=== PATIENT | male | born 1955 | race Caucasian/White ===

== ENCOUNTER 2019-01-01 10:26 | Inpatient (IN) | payer MEDICARE, BC ==
[2019-01-01] MEDS ORDERED: Haloperidol Lactate 5 mg/mL 1mL Vial IM STA (10:43)
[2019-01-01] MEDS ORDERED: Haloperidol Lactate 5 mg/mL 1mL Vial ONE (10:52)
[2019-01-01 10:59] LABS: % EOSINOPHILS 0.8 % (0.0-5.0); % LYMPHOCYTES 12.4 % (20.0-50.0); % NEUTROPHILS 79.8 % (40.0-80.0); EOSINOPHILE ABSOLUTE 0.1 Th/cmm (0.1-0.4); HEMATOCRIT 42.4 % (41.0-60); HEMOGLOBIN 14.2 gm/dL (12-16); LYMPHOCYTE ABSOLUTE 1.7 Th/cmm (1.5-3.0); MEAN CELL VOLUME 93.4 fl (80-99); MEAN CORPUSCULAR HEMOGLOBIN 31.3 pg (27.0-31.0); MEAN CORPUSCULAR HGB CONC 33.5 pg (28.0-36.0); NEUTROPHILE ABSOLUTE 11.3 Th/cmm (1.8-8.0); PLATELET COUNT 371 Th/cmm (150-400); RED BLOOD COUNT 4.55 Mil/cmm (3.80-5.80); RED CELL DISTRIBUTION WIDTH 14.1 % (11.5-20.0); WHITE BLOOD COUNT 14.1 Th/cmm (4.8-10.8)
--- NOTE | 2019-01-01 11:10 | ED Physician Chart ---
ED Chief Complaint/HPI - Patient Information Date Seen:: 01/01/19 Time Seen:: 10:40 Chief Complaint:: Agitation History of Present Illness:: onset x 3 hours of reported agitation, DTOs, and aggressive/hostile behavior; no report of trauma, H/As, S/T, neck pain, SIs, C/P, cough, SOB, Abd. Pain, A/N/ V/D/C, fever, chills, bleeding, or urinary s/s Allergies:: Allergies Allergy/AdvReac Type Severity Reaction Status Date / Time No Known Allergies Allergy Verified 01/01/19 10:42 Vitals:: Vital Signs - 8 hr 01/01/19 10:43 Temp 99.1 F HR 102 RR 22 BP 175/88 O2 Sat % 95 Historian:: Patient Review:: Nurse's Note Reviewed, Old Chart Reviewed ED Review of Systems - Review of Systems General/Constitutional: No fever, No chills, No weight loss, No weakness, No diaphoresis, No edema, No loss of appetite Skin: No skin lesions, No rash, No bruising Head: No headache, No light-headedness Eyes: No loss of vision, No pain, No diplopia ENT: No earache, No nasal drainage, No sore throat, No tinnitus Neck: No neck pain, No swelling, No thyromegaly, No stiffness, No mass noted Cardio Vascular: No chest pain, No palpitations, No PND, No orthopnea, No edema Pulmonary: No SOB, No cough, No sputum, No wheezing GI: No nausea, No vomiting, No diarrhea, No pain, No melena, No hematochezia, No constipation, No hematemesis G/U: No dysuria, No frequency, No hematuria, No nacturia Musculoskeletal: No bone or joint pain, No back pain, No muscle pain Endocrine: No polyuria, No polydipsia Psychiatric: Prior psych history, No depression, Anxiety, No suicidal ideation, No homicidal ideation, No auditory hallucination, No visual hallucination Hematopoietic: No bruising, No lymphadenopathy Allergic/Immuno: No urticaria, No angioedema Neurological: No syncope, No focal symptoms, No weakness, No paresthesia, No headache, No seizure, No dizziness, No confusion, No vertigo ED Past Medical History - Past Medical History Obtainable: Yes Past Medical History: HTN Family History: HTN Social History: Smoker, Alcohol, No Drug Use, Single Surgical History: None Psychiatricy History: Bipolar Medication: Reviewed ED Physical Exam - Physical Examination General/Constitutional: Awake, Well-developed, well-nourished, Alert, No distress, GCS 15, Non-toxic appearing, Ambulatory Head: Atraumatic Eyes: Lids, conjuctiva normal, PERRL, EOMI Skin: Nl inspection, No rash, No skin lesions, No ecchymosis, Well hydrated, No lymphadenopathy ENMT: External ears, nose nl, TM canals nl, Nasal exam nl, Lips, teeth, gums nl , Oropharynx nl, Tonsils nl Neck: Nontender, Full ROM w/o pain, No JVD, No nuchal rigidity, No bruit, No mass, No stridor Respiratory: Nl effort/Exclusion, Clear to Auscultation, No Wheeze/Rhonchi/Rales Cardio Vascular: RRR, No murmur, gallop, rubs, NL S1 S2, Carotid/Femoral/Distal pulses equal bilaterally GI: No tenderness/rebounding/guarding, No organomegaly, No hernia, Normal BS's, Nondistended, No mass/bruits, No McBurney tenderness : No CVA tenderness Extremities: No tenderness or effusion, Full ROM, normal strength in all extremities, No edema, Normal digits & nails Neuro/Psych: Alert/oriented, DTR's symmetric, Normal sensory exam, Normal motor strength, Judgement/insight normal, Mood normal, Normal gait, No focal deficits Other Neuro/Psych comments:: + Psychomotor Agitation; no SIs; Mood/Affect: Labile Misc: Normal back, No paraspinal tenderness ED Labs/Radiology/EKG Results - Lab Results Results: Laboratory Tests 01/01/19 10:50 WBC 14.1 H RBC 4.55 Hgb 14.2 Hct 42.4 MCV 93.4 MCH 31.3 H MCHC Differential 33.5 RDW 14.1 Plt Count 371 MPV 7.9 Neutrophils % 79.8 Lymphocytes % 12.4 L Monocytes % 7.0 Eosinophils % 0.8 Basophils % 0.0 Comments:: Reviewed - EKG Interpretations EKG Time:: 11:00 Rate & Rhythm: 92; NSR Comments:: non-specific st-t changes ED Septic Shock - . Is Septic Shock (SBP<90, OR Lactate>4 mmol\L) present?: No - <6hrs of presentation: Vital Signs: Vital Signs - 8 hr 01/01/19 10:43 Temp 99.1 F HR 102 RR 22 BP 175/88 O2 Sat % 95 ED Reassessment (Disposition) - Reassessment Reassessment Condition:: Improved - Diagnosis Diagnosis:: Agitation; Anxiety; Medical Clearance; DTOs; HTN; Bipolar Disorder - Aftercare/Follow up Instructions Aftercare/Follow-Up Instructions:: Counseled pt regarding lab results/diagnosis & need follow up, Counseled pt & family regarding lab results/diagnosis & need follow up - Patient Disposition Discharge/Transfer:: Acute Care w/in this hosp Admitted to:: [facility] Condition at Disposition:: Stable, Improved
[2019-01-01 11:15] LABS: ACETAMINOPHEN < 10.0 ug/mL (10.0-30.0); ALB/GLOB RATIO 1.3 (1.0-1.8); ALBUMIN 4.3 gm/dL (4.2-5.5); ALKALINE PHOSPHATASE 50 U/L (34-104); BILIRUBIN,TOTAL 0.4 mg/dL (0.3-1.0); BUN - UREA NITROGEN 20 mg/dL (7-25); CALCIUM SERUM 9.6 mg/dL (8.6-10.3); CARBON DIOXIDE 25.5 mEq/L (21.0-31.0); CHLORIDE 95 mEq/L (98-107); CHOLESTEROL 156 mg/dL (<200); CREATININE - SERUM 0.7 mg/dL (0.7-1.3); GFR AFRICAN-AMERICAN > 60.0 ml/min (>90); GFR NON AFRICAN-AMERICAN > 60.0 ml/min; GLUCOSE 88 mg/dL (70-105); HDL -HIGH DENSITY LIPOPROTEIN 70 mg/dL (23-92); POTASSIUM SERUM 4.5 mEq/L (3.5-5.1); SGOT 48 U/L (13-39); SGPT/ALT 37 U/L (7-52); SODIUM SERUM 130 mEq/L (136-145); TOTAL PROTEIN,SERUM 7.7 gm/dL (6.0-8.3); TRIGLYCERIDES 64 mg/dL (<150)
[2019-01-01 11:32] LABS: URINE SOURCE CLEAN C
[2019-01-01 11:34] LABS: URINE BILIRUBIN NEGATIVE (NEGATIVE); URINE BLOOD NEGATIVE (NEGATIVE); URINE GLUCOSE (UA) NEGATIVE (NEGATIVE); URINE KETONE NEGATIVE (NEGATIVE); URINE LEUKOCYTE ESTERASE NEGATIVE (NEGATIVE); URINE NITRATE NEGATIVE (NEGATIVE); URINE PROTEIN NEGATIVE (NEGATIVE); URINE UROBILINOGEN 0.2 E.U./dL (0.2 - 1.0)
[2019-01-01 11:40] LABS: URINE CLARITY CLEAR (CLEAR); URINE COLOR YELLOW
[2019-01-01 11:41] LABS: URINE BACTERIA FEW /hpf (NONE SEEN); URINE EPITHELIAL CELLS NONE SEEN /lpf (FEW); URINE MICROSCOPIC INDICATED? YES; URINE RBC 0-2 /hpf (0-5); URINE WBC 0-2 /hpf (0-5)
[2019-01-01 11:44] LABS: AMPHETAMINE URINE NEGATIVE (NEGATIVE); BARBITURATES URINE NEGATIVE (NEGATIVE); BENZODIAZEPINES QUAL URINE NEGATIVE (NEGATIVE); CANNABINOID THC NEGATIVE (NEGATIVE); COCAINE METABOLITE QUAL URINE NEGATIVE (NEGATIVE); METHADONE URINE NEGATIVE (NEGATIVE); METHAMPHETAMINES QUAL URINE NEGATIVE (NEGATIVE); OPIATES (MORPHINE) QUAL. URINE NEGATIVE (NEGATIVE); PHENCYCLIDINE (PCP) URINE NEGATIVE (NEGATIVE); TRICYCLICS (TCA) QUAL. URINE NEGATIVE (NEGATIVE)
[2019-01-01 16:01] VITALS: BP 147/84
[2019-01-01] MEDS ORDERED: Maalox 30 mL Cup PO PRN (19:54)
[2019-01-01] MEDS ORDERED: Magnesium Hydroxide (MOM) 30 mL UDC PO PRN (19:54)
--- NOTE | 2019-01-02 03:58 | Psychiatric Evaluation ---
DATE OF SERVICE: 01/01/2019 PSYCHIATRIC EVALUATION AND MENTAL EXAMINATION IDENTIFYING DATA: The patient is a 63-year-old male, currently homeless. Information obtained by directly interviewing the patient as well as reviewing the admission papers and they are reliable. JUSTIFICATION FOR HOSPITALIZATION: The patient is admitted on 5150 as a danger to others and being gravely disabled. CHIEF COMPLAINT: "I don't know." HISTORY OF PRESENT ILLNESS: This is the first psychiatric hospitalization to [facility] for this patient who is reported to have been creating a disturbance at a business and police were called on multiple occasions and the patient has finally been placed on 5150 and need to be transferred over here for stabilization. At the time of the evaluation, the patient has been very agitated and the patient has been given a dose of the Haldol, Ativan, and Benadryl and the patient at this time is sedated and is not able to provide much of information. PAST PSYCHIATRIC HISTORY: Details are not known. MEDICAL HISTORY AND PHYSICAL EXAMINATION: Requested to be done by Dr. Bell. SUBSTANCE ABUSE HISTORY: Details are not known. LEGAL PROBLEMS: None noted at this time. SOCIAL HISTORY: The patient is currently homeless. MENTAL STATUS EXAMINATION: The patient is a 63-year-old, very disheveled, looking older than his stated age, superficially cooperative. The patient is stating that he is too sedated and cannot give any information. The patient is reported to have been out of control, screaming and yelling and has to be given a dose of medication a minute he came into the Emergency Room. The patient at this time is sedated and I am not able to provide much of information with regards to mental status. The patient's blood work has been reviewed and then WBC is noted to be 14.1 and then sodium is noted to be 130. The rest of the labs are noted to be within normal limits. DIAGNOSTIC IMPRESSION: AXIS I: Psychotic disorder, not otherwise specified. AXIS II: None. AXIS III: As per Dr. Bell. IMMEDIATE TREATMENT PLAN: The patient is going to be observed on an inpatient unit, provided with supportive psychotherapy. The patient is going to be maintained on p.r.n. doses of medications. ____ the patient is able to provide much of the information, the patient is going to be started on the medications. ESTIMATED LENGTH OF STAY: 3-5 days. DISCHARGE CRITERIA: When the patient is no longer a threat to self or others and be able to cope up with the stress. [facility]# [id number]
[2019-01-02 07:05] LABS: A1C 5.7 % (4.8-5.6)
[2019-01-02] MEDS: Multivitamin Tab PO SCH (09:37)
--- NOTE | 2019-01-02 18:52 | History & Physical ---
ADMIT DATE: 01/02/2019 DICTATED FOR: Dr. Bell. CHIEF COMPLAINT: Agitation. HISTORY OF PRESENT ILLNESS: A 63-year-old male, who is admitted to the Geropsych Unit due to agitation. PAST MEDICAL HISTORY: Hypertension. FAMILY HISTORY: Noncontributory. SOCIAL HISTORY: The patient is a current smoker. No illicit drug usage. PAST SURGICAL HISTORY: None. PSYCHIATRIC HISTORY: Bipolar. MEDICATIONS: See medication list. REVIEW OF SYSTEMS: GENERAL: Denies any fever or chills. CARDIOVASCULAR: Denies chest pain. RESPIRATORY: Denies shortness of breath. GASTROINTESTINAL: Denies nausea, vomiting, abdominal pain. GENITOURINARY: Denies increased frequency or dysuria. NEUROLOGIC: No headaches, seizures, or syncope. All systems reviewed and negative. PHYSICAL EXAMINATION: GENERAL: The patient is well developed, well nourished, no apparent distress. VITAL SIGNS: Temperature 96.9, heart rate 89, blood pressure 175/81, respirations 20, O2 of 96%. HEENT: Head normocephalic, atraumatic. NECK: Supple. No mass. LUNGS: Clear bilaterally. HEART: Regular rhythm. ABDOMEN: Soft, nontender. GENITOURINARY, RECTAL, GENITALIA: The patient refused. LABORATORY DATA: WBC 14.1, H and H of 14.2 and 42.4, platelets of 371. Sodium 130, potassium 4.5, chloride 95, BUN 20, creatinine 0.7. ASSESSMENT: Bipolar, agitation, hypertension, leukocytosis, urinary tract infection. PLAN: We will give the patient Levaquin 500 mg p.o. daily. Continue patient's home medications. Fall precautions will be initiated. We will continue to monitor this patient. JOB# [id number]
[2019-01-03] MEDS: Multivitamin Tab PO SCH (08:51)
--- NOTE | 2019-01-03 09:05 | Consultation ---
DATE OF CONSULTATION: 01/02/2019 DATE OF CONSULTATION: 01/02/2019 REFERRING PHYSICIAN: Dr. Yonatan Puente MD TYPE OF CONSULTATION: Psychology. HISTORY OF PRESENT ILLNESS: The patient is a 63-year-old single male. The following is by review of the medical record and by the patient's self-report. According to record review, the patient is currently homeless. The patient is being admitted on a 5150 as a danger to others and being gravely disabled. Upon interview, the patient reports that he does not know why he is being hospitalized. Record review indicates that the patient had been creating a disturbance at a business and police were called on multiple occasions. The patient eventually was placed on a 5150 hold and transferred here for stabilization. The patient presents as guarded and suspicious and easily agitated. The patient did not answer the other clinical interview questions. PAST MEDICAL HISTORY: Please see history and physical by Dr. Bell. PAST PSYCHIATRIC HISTORY: Details are unknown. Records are unavailable. SUBSTANCE ABUSE HISTORY: The patient declined to answer these questions. PSYCHOSOCIAL HISTORY: The patient is currently homeless. The patient did not answer the questions about educational history or occupational history. He did not answer questions about having family members or friends that are involved in his care. The patient was unable to state where he had been previously living. The patient did not answer the question about experiencing any history of physical or sexual abuse. The patient did not answer the question about current legal problems. The patient does not know where he will be discharged. MENTAL STATUS EXAMINATION: The patient appears to be older than his stated age and somewhat disheveled. Eye contact is poor. Speech is slow and delayed. Mood is irritable. Affect is constricted. Record review indicates that the patient had been screaming and yelling in front of a business and making verbal threats. The patient denied these incidents. The patient did not answer questions about experiencing auditory or visual hallucinations or delusions. The patient is not providing much information. Thought process shows to be concrete and confused. The patient's impulse control is inadequate. Concentration appears to be poor. He was unable to sustain focus and attention. The patient did not participate in the clinical assessment. The patient did not participate in the memory evaluation. The patient did not participate in the interpretation of proverbs. Sensorium is alert and oriented to self only. The patient has poor insight into his illness and poor coping skills. Insight is impaired. Judgment is compromised. DIAGNOSTIC IMPRESSION: AXIS I: Provisional diagnosis of psychotic disorder, not otherwise specified. AXIS II: Deferred. AXIS III: Per Dr. Bell. TREATMENT PLAN: The patient has been seen by Dr. Puente for psychiatric evaluation and for the management of the patient's psychotropic medications. We will provide supportive psychotherapy to include motivational enhancement for the patient to become compliant and stay compliant with all aspects of his care and treatment. We will provide reality testing to include reality orientation, differentiation, and integration. We will provide coping strategies for phase of life issues. We will encourage the patient to participate in the milieu treatment. We will encourage the patient to demonstrate emotional and self-regulation. We will encourage the patient to verbally contract for safety, i.e. no self-harm and harm to others. We will encourage the patient to work with case management for possible placement as the patient previously is homeless according to review of the medical record. Thank you, Dr. Puente for this consult and the opportunity to participate in this patient's care. JOB# [id number] RIKA
--- NOTE | 2019-01-03 11:46 | Internal Medicine Prog Note ---
Internal Medicine Subjective - Subjective Service Date: 01/03/19 Patient seen and examined:: with staff Patient is:: awake, agitated Patient Complaints of:: pain with urination Per staff patient has:: no adverse event, no episodes of fall Internal Medicine Objective - Results Result Diagrams: 01/01/19 10:50 01/01/19 10:50 Recent Labs: Laboratory Last Values WBC 14.1 Th/cmm (4.8-10.8) H 01/01/19 10:50 RBC 4.55 Mil/cmm (3.80-5.80) 01/01/19 10:50 Hgb 14.2 gm/dL (12-16) 01/01/19 10:50 Hct 42.4 % (41.0-60) 01/01/19 10:50 MCV 93.4 fl (80-99) 01/01/19 10:50 MCH 31.3 pg (27.0-31.0) H 01/01/19 10:50 MCHC Differential 33.5 pg (28.0-36.0) 01/01/19 10:50 RDW 14.1 % (11.5-20.0) 01/01/19 10:50 Plt Count 371 Th/cmm (150-400) 01/01/19 10:50 MPV 7.9 fl 01/01/19 10:50 Neutrophils % 79.8 % (40.0-80.0) 01/01/19 10:50 Lymphocytes % 12.4 % (20.0-50.0) L 01/01/19 10:50 Monocytes % 7.0 % (2.0-10.0) 01/01/19 10:50 Eosinophils % 0.8 % (0.0-5.0) 01/01/19 10:50 Basophils % 0.0 % (0.0-2.0) 01/01/19 10:50 Sodium 130 mEq/L (136-145) L 01/01/19 10:50 Potassium 4.5 mEq/L (3.5-5.1) 01/01/19 10:50 Chloride 95 mEq/L (98-107) L 01/01/19 10:50 Carbon Dioxide 25.5 mEq/L (21.0-31.0) 01/01/19 10:50 Anion Gap 14.0 (7.0-16.0) 01/01/19 10:50 BUN 20 mg/dL (7-25) 01/01/19 10:50 Creatinine 0.7 mg/dL (0.7-1.3) 01/01/19 10:50 Est GFR ( Amer) > 60.0 ml/min (>90) 01/01/19 10:50 Est GFR (Non-Af Amer) > 60.0 ml/min 01/01/19 10:50 BUN/Creatinine Ratio 28.6 01/01/19 10:50 Glucose 88 mg/dL (70-105) 01/01/19 10:50 Calcium 9.6 mg/dL (8.6-10.3) 01/01/19 10:50 Total Bilirubin 0.4 mg/dL (0.3-1.0) 01/01/19 10:50 AST 48 U/L (13-39) H 01/01/19 10:50 ALT 37 U/L (7-52) 01/01/19 10:50 Alkaline Phosphatase 50 U/L (34-104) 01/01/19 10:50 Troponin I 0.01 ng/mL (0.01-0.05) 01/01/19 10:50 Total Protein 7.7 gm/dL (6.0-8.3) 01/01/19 10:50 Albumin 4.3 gm/dL (4.2-5.5) 01/01/19 10:50 Globulin 3.4 gm/dL 01/01/19 10:50 Albumin/Globulin Ratio 1.3 (1.0-1.8) 01/01/19 10:50 Triglycerides 64 mg/dL (<150) 01/01/19 10:50 Cholesterol 156 mg/dL (<200) 01/01/19 10:50 LDL Cholesterol Direct 76 mg/dL (75-193) 01/01/19 10:50 HDL Cholesterol 70 mg/dL (23-92) 01/01/19 10:50 TSH 3.15 uIU/ml (0.34-5.60) 01/01/19 10:50 Urine Source CLEAN C 01/01/19 11:28 Urine Color YELLOW 01/01/19 11:28 Urine Clarity CLEAR (CLEAR) 01/01/19 11:28 Urine pH 6.0 (4.6 - 8.0) 01/01/19 11:28 Ur Specific Cameron 1.015 (1.005-1.030) 01/01/19 11:28 Urine Protein NEGATIVE mg/dL (NEGATIVE) 01/01/19 11:28 Urine Glucose (UA) NEGATIVE mg/dL (NEGATIVE) 01/01/19 11:28 Urine Ketones NEGATIVE mg/dL (NEGATIVE) 01/01/19 11:28 Urine Blood NEGATIVE (NEGATIVE) 01/01/19 11:28 Urine Nitrate NEGATIVE (NEGATIVE) 01/01/19 11:28 Urine Bilirubin NEGATIVE (NEGATIVE) 01/01/19 11:28 Urine Urobilinogen 0.2 E.U./dL (0.2 - 1.0) 01/01/19 11:28 Ur Leukocyte Esterase NEGATIVE (NEGATIVE) 01/01/19 11:28 Urine RBC 0-2 /hpf (0-5) H 01/01/19 11:28 Urine WBC 0-2 /hpf (0-5) 01/01/19 11:28 Ur Epithelial Cells NONE SEEN /lpf (FEW) 01/01/19 11:28 Urine Bacteria FEW /hpf (NONE SEEN) 01/01/19 11:28 Salicylates < 25.0 mg/L (30.0-100.0) L 01/01/19 10:50 Urine Opiates Screen NEGATIVE (NEGATIVE) 01/01/19 11:28 Urine Methadone Screen NEGATIVE (NEGATIVE) 01/01/19 11:28 Acetaminophen < 10.0 ug/mL (10.0-30.0) L 01/01/19 10:50 Ur Barbiturates Screen NEGATIVE (NEGATIVE) 01/01/19 11:28 Ur Tricyclics Screen NEGATIVE (NEGATIVE) 01/01/19 11:28 Ur Phencyclidine Scrn NEGATIVE (NEGATIVE) 01/01/19 11:28 Amphetamines Screen NEGATIVE (NEGATIVE) 01/01/19 11:28 U Methamphetamines Scrn NEGATIVE (NEGATIVE) 01/01/19 11:28 U Benzodiazepines Scrn NEGATIVE (NEGATIVE) 01/01/19 11:28 U Cocaine Metab Screen NEGATIVE (NEGATIVE) 01/01/19 11:28 U Cannabinoids Screen NEGATIVE (NEGATIVE) 01/01/19 11:28 Ethyl Alcohol < 10 mg/dL (0-10) 01/01/19 10:50 - Physical Exam Vitals and I&O: Vital Signs Temp 97.8 F 01/03/19 06:46 Pulse 88 01/03/19 06:46 Resp 19 01/03/19 06:46 BP 159/75 01/03/19 06:46 Pulse Ox 97 01/03/19 06:46 Intake & Output 01/02/19 01/03/19 01/03/19 18:59 06:59 18:59 Intake Total 1200 480 Balance 1200 480 Intake: Oral 1200 480 Other: # Voids 3 # Bowel Movements 1 1 Active Medications: Current Medications Acetaminophen (Tylenol) 650 mg PO Q4HR PRN PRN Reason: Mild Pain / Temp above 100 Stop: 03/02/19 19:53 Last Admin: 01/02/19 23:27 Dose: 650 mg Al Hydrox/Mg Hydrox/Simethicone (Maalox) 30 ml PO Q4HR PRN PRN Reason: GI DISTRESS Stop: 03/02/19 19:53 Last Admin: 01/02/19 06:02 Dose: 30 ml Divalproex Sodium (Depakote Dr) 250 mg PO BID JENISE; Protocol Stop: 03/04/19 08:59 Last Admin: 01/03/19 09:04 Dose: 250 mg Levofloxacin (Levaquin) 500 mg PO DAILY JENISE Stop: 03/03/19 08:59 Last Admin: 01/03/19 08:51 Dose: 500 mg Lorazepam (Ativan) 0.5 mg PO Q4HR PRN; Protocol PRN Reason: Agitation Stop: 01/31/19 19:53 Last Admin: 01/03/19 09:43 Dose: 0.5 mg Magnesium Hydroxide (Milk Of Magnesia) 30 ml PO HS PRN PRN Reason: Constipation Multivitamins/Vitamin C (Theragran) 1 tab PO DAILY JENISE Stop: 03/03/19 08:59 Last Admin: 01/03/19 08:51 Dose: 1 tab Quetiapine Fumarate (Seroquel) 12.5 mg PO HS JENISE; Protocol Stop: 03/03/19 20:59 Last Admin: 01/02/19 21:18 Dose: 12.5 mg Zolpidem Tartrate (Ambien) 5 mg PO HS PRN PRN Reason: Insomnia Stop: 03/02/19 19:53 Last Admin: 01/02/19 21:18 Dose: 5 mg Physical Exam: 63 y/o male patient was admitted due to Agitation. General: other (Agitated and irritated.) HEENT: NC/AT Neck: Supple Lungs: CTAB Cardiovascular: RRR, Normal S1 Abdomen: soft, non-tender Extremities: clear Neurological: no change Internal Medicine Assmt/Plan - Assessment Assessment: Bipolar disorder. Agitated. Htn. Leukocytosis. UTI. - Plan Plan: Continuation of care. Monitor Vitals and Labs. Continue present meds as directed. Monitor Diet/Nutritional support. Psych management per Psych. Pain Management. Supportive care. Fall precaution, frequent nursing rounds, and as needed restraints to prevent fall. Continue collaborating with consulting specialists, case management and nursing team. Will Monitor patient and continue current treatment plan as ordered. Nutritional Asmnt/Malnutr-PDOC - Dietary Evaluation Malnutrition Findings (Please click <Entered> for more info): see order.
--- NOTE | 2019-01-03 19:17 | Progress Notes ---
DATE: 01/02/2019 SUBJECTIVE: Staff was spoken to. The patient is hyperverbal and has been stating that he needs to go to the [facility] and he also needs to have Valium, Klonopin or Xanax to calm him down for his acute panic attacks. The patient's insight and judgment are noted to be very much impaired. The patient is stating that he was on Triavil at one time and he needs to be on that medication. The patient has been not able to contract for safety. The patient is very paranoid and has been having mood swings, but the patient seems to be more focused on benzodiazepines rather than the any other medications. The patient is going to be started on 12.5 mg of the Seroquel tonight and the patient is going to be closely monitored and a low dose of the Depakote is going to be added to continue the mood swings. The patient at time is not ready to be discharged to a lower level of care because the patient has no place to return to. Please also note that the patient is reporting that he spent some time in [place] because of breaking a window and is stating that his benefits have been taken away and he states that he needs to work on those. The patient is at this time willing to comply with the treatment. ASSESSMENT: The patient is still grossly psychotic and gravely disabled. PLAN: To start the patient on low dose of Depakote and Seroquel and followup. JOB# [id number]
--- NOTE | 2019-01-04 04:13 | Progress Notes ---
DATE: 01/03/2019 SUBJECTIVE: Staff was spoken to. The patient is interviewed. Mood is noted to be irritable. Affect is constricted. Insight and judgment are noted to be still impaired. Impulse control is noted to be limited. Coping skills are noted to be limited. The patient has been having difficult time to cope with the stress. No side effects to the medications are noted. The patient is still very disheveled. The patient is stating that he needs to go to [place], but he has no place to return to. Coping skills are noted to be extremely poor. The patient's WBC is noted to be 14.1 and hence the patient has been started on antibiotic medication. ASSESSMENT: The patient is still psychotic and gravely disabled. PLAN: To continue the patient with the supportive therapy. Encouraged the patient to verbalize the concerns rather than to act out. JOB# [id number]
[2019-01-04] MEDS: Multivitamin Tab PO SCH (08:31)
--- NOTE | 2019-01-05 00:23 | Progress Notes ---
DATE: 01/04/2019 SUBJECTIVE: Staff was spoken to. The patient is interviewed. Mood is noted to be irritable. Affect is constricted. The patient is still dysphoric. Coping skills are noted to be very poor. The patient has paranoia, but denies any command hallucinations. The patient is going on a tangent. The patient is stating that he needs to go to [employer] and he has friends over there. The patient does not have a place to return to at this time, but comes in with so many plans. Insight and judgment at this time are noted to be still impaired. Impulse control is noted to be limited. The patient is not able to care for self. ASSESSMENT: The patient is still paranoid. PLAN: To continue the patient with the supportive therapy. Encouraged the patient to verbalize the concerns rather than to act out. The patient is currently only on 12.5 mg of the Seroquel, which is going to be increased to 25 mg and the patient is going to be followed up. JOB# [id number]
--- NOTE | 2019-01-05 02:28 | Progress Notes ---
DATE: 01/04/2019 SUBJECTIVE: The patient was seen in the dining area. The patient appears to be guarded, irritable, easily gets frustrated, episodes of confusion. Otherwise, the patient appears to be in no acute distress. OBJECTIVE: VITAL SIGNS: Temperature 98.7, heart rate 88, blood pressure 134/91, respirations 20, 94% on room air. HEENT: Head is atraumatic and normocephalic. Eyes: Bilateral conjunctivae are clear. Bilateral pupils are equally round and reactive. NECK: Supple. No JVD. CARDIOVASCULAR: S1 and S2 without murmur. PULMONARY: Clear to auscultation. GASTROINTESTINAL: Soft and nontender without guarding. Positive bowel sounds. MUSCULOSKELETAL: No clubbing. No cyanosis noted. ASSESSMENT: 1. Bipolar disorder. 2. Hypertension. 3. Acute urinary tract infection. 4. Osteoarthritis. PLAN: We will keep the patient to inpatient psychiatric unit. We will followup with a psychiatrist to monitor the patient's condition and behavior. Treatment plans were discussed with the patient's nurse. Treatment plans were discussed with Dr. Bell. JOB# [id number]
[2019-01-05] MEDS: Multivitamin Tab PO SCH (09:14)
--- NOTE | 2019-01-05 11:16 | Progress Notes ---
DATE: 01/04/2019 PSYCHOLOGY PROGRESS NOTE SUBJECTIVE: The patient is seen and is interviewed. Case is discussed with staff. The patient presents as guarded as well as irritable and easily frustrated. Staff reports the patient is taking his p.o. medications. The patient is reporting that he needs to discharge and go back to [place] and that he has a place to go. However, the patient is noted to be homeless. OBJECTIVE: Mood is irritable. Affect is constricted. Thought process shows to be confused. The patient denied any hallucinations or delusions; however, the patient is unrealistic about discharge and placement as well as his current circumstances. The patient is taking his p.o. medications. The patient seems to be withdrawn as well as guarded. ASSESSMENT AND PLAN: The patient's psychosis persists. The patient was evaluated as gravely disabled. Staff reports the patient has agreed to placement. The patient seems to have accepted this; however, this needs positive reinforcement and remotivation. We provided those approaches. We provided coping strategies for phase of life issues. We encouraged the patient to follow through with all aspects of his care and treatment as well as treatment goals including the patient entering a long-term care facility. We will follow up in 2 days to continue the present treatment if the patient remains admitted on the unit. JOB# [id number] RIKA
--- NOTE | 2019-01-05 18:27 | Internal Medicine Prog Note ---
Internal Medicine Subjective - Subjective Service Date: 01/05/19 Patient seen and examined:: with staff Patient is:: awake, agitated, confused Patient Complaints of:: pain with urination Per staff patient has:: no adverse event, no episodes of fall Internal Medicine Objective - Results Result Diagrams: 01/01/19 10:50 01/01/19 10:50 Recent Labs: Laboratory Last Values WBC 14.1 Th/cmm (4.8-10.8) H 01/01/19 10:50 RBC 4.55 Mil/cmm (3.80-5.80) 01/01/19 10:50 Hgb 14.2 gm/dL (12-16) 01/01/19 10:50 Hct 42.4 % (41.0-60) 01/01/19 10:50 MCV 93.4 fl (80-99) 01/01/19 10:50 MCH 31.3 pg (27.0-31.0) H 01/01/19 10:50 MCHC Differential 33.5 pg (28.0-36.0) 01/01/19 10:50 RDW 14.1 % (11.5-20.0) 01/01/19 10:50 Plt Count 371 Th/cmm (150-400) 01/01/19 10:50 MPV 7.9 fl 01/01/19 10:50 Neutrophils % 79.8 % (40.0-80.0) 01/01/19 10:50 Lymphocytes % 12.4 % (20.0-50.0) L 01/01/19 10:50 Monocytes % 7.0 % (2.0-10.0) 01/01/19 10:50 Eosinophils % 0.8 % (0.0-5.0) 01/01/19 10:50 Basophils % 0.0 % (0.0-2.0) 01/01/19 10:50 Sodium 130 mEq/L (136-145) L 01/01/19 10:50 Potassium 4.5 mEq/L (3.5-5.1) 01/01/19 10:50 Chloride 95 mEq/L (98-107) L 01/01/19 10:50 Carbon Dioxide 25.5 mEq/L (21.0-31.0) 01/01/19 10:50 Anion Gap 14.0 (7.0-16.0) 01/01/19 10:50 BUN 20 mg/dL (7-25) 01/01/19 10:50 Creatinine 0.7 mg/dL (0.7-1.3) 01/01/19 10:50 Est GFR ( Amer) > 60.0 ml/min (>90) 01/01/19 10:50 Est GFR (Non-Af Amer) > 60.0 ml/min 01/01/19 10:50 BUN/Creatinine Ratio 28.6 01/01/19 10:50 Glucose 88 mg/dL (70-105) 01/01/19 10:50 Calcium 9.6 mg/dL (8.6-10.3) 01/01/19 10:50 Total Bilirubin 0.4 mg/dL (0.3-1.0) 01/01/19 10:50 AST 48 U/L (13-39) H 01/01/19 10:50 ALT 37 U/L (7-52) 01/01/19 10:50 Alkaline Phosphatase 50 U/L (34-104) 01/01/19 10:50 Troponin I 0.01 ng/mL (0.01-0.05) 01/01/19 10:50 Total Protein 7.7 gm/dL (6.0-8.3) 01/01/19 10:50 Albumin 4.3 gm/dL (4.2-5.5) 01/01/19 10:50 Globulin 3.4 gm/dL 01/01/19 10:50 Albumin/Globulin Ratio 1.3 (1.0-1.8) 01/01/19 10:50 Triglycerides 64 mg/dL (<150) 01/01/19 10:50 Cholesterol 156 mg/dL (<200) 01/01/19 10:50 LDL Cholesterol Direct 76 mg/dL (75-193) 01/01/19 10:50 HDL Cholesterol 70 mg/dL (23-92) 01/01/19 10:50 TSH 3.15 uIU/ml (0.34-5.60) 01/01/19 10:50 Urine Source CLEAN C 01/01/19 11:28 Urine Color YELLOW 01/01/19 11:28 Urine Clarity CLEAR (CLEAR) 01/01/19 11:28 Urine pH 6.0 (4.6 - 8.0) 01/01/19 11:28 Ur Specific [place] 1.015 (1.005-1.030) 01/01/19 11:28 Urine Protein NEGATIVE mg/dL (NEGATIVE) 01/01/19 11:28 Urine Glucose (UA) NEGATIVE mg/dL (NEGATIVE) 01/01/19 11:28 Urine Ketones NEGATIVE mg/dL (NEGATIVE) 01/01/19 11:28 Urine Blood NEGATIVE (NEGATIVE) 01/01/19 11:28 Urine Nitrate NEGATIVE (NEGATIVE) 01/01/19 11:28 Urine Bilirubin NEGATIVE (NEGATIVE) 01/01/19 11:28 Urine Urobilinogen 0.2 E.U./dL (0.2 - 1.0) 01/01/19 11:28 Ur Leukocyte Esterase NEGATIVE (NEGATIVE) 01/01/19 11:28 Urine RBC 0-2 /hpf (0-5) H 01/01/19 11:28 Urine WBC 0-2 /hpf (0-5) 01/01/19 11:28 Ur Epithelial Cells NONE SEEN /lpf (FEW) 01/01/19 11:28 Urine Bacteria FEW /hpf (NONE SEEN) 01/01/19 11:28 Salicylates < 25.0 mg/L (30.0-100.0) L 01/01/19 10:50 Urine Opiates Screen NEGATIVE (NEGATIVE) 01/01/19 11:28 Urine Methadone Screen NEGATIVE (NEGATIVE) 01/01/19 11:28 Acetaminophen < 10.0 ug/mL (10.0-30.0) L 01/01/19 10:50 Ur Barbiturates Screen NEGATIVE (NEGATIVE) 01/01/19 11:28 Ur Tricyclics Screen NEGATIVE (NEGATIVE) 01/01/19 11:28 Ur Phencyclidine Scrn NEGATIVE (NEGATIVE) 01/01/19 11:28 Amphetamines Screen NEGATIVE (NEGATIVE) 01/01/19 11:28 U Methamphetamines Scrn NEGATIVE (NEGATIVE) 01/01/19 11:28 U Benzodiazepines Scrn NEGATIVE (NEGATIVE) 01/01/19 11:28 U Cocaine Metab Screen NEGATIVE (NEGATIVE) 01/01/19 11:28 U Cannabinoids Screen NEGATIVE (NEGATIVE) 01/01/19 11:28 Ethyl Alcohol < 10 mg/dL (0-10) 01/01/19 10:50 RPR NONREACTIVE (NONREACTIVE) 01/01/19 10:50 - Physical Exam Vitals and I&O: Vital Signs Temp 97.6 F 01/05/19 14:00 Pulse 83 01/05/19 14:00 Resp 20 01/05/19 14:00 BP 151/91 01/05/19 14:00 Pulse Ox 96 01/05/19 14:00 Intake & Output 01/04/19 01/05/19 01/05/19 18:59 06:59 18:59 Intake Total 900 420 Balance 900 420 Intake: Oral 900 420 Other: # Voids 3 3 # Bowel Movements 1 Stool Characteristics Soft Soft Active Medications: Current Medications Acetaminophen (Tylenol) 650 mg PO Q4HR PRN PRN Reason: Mild Pain / Temp above 100 Stop: 03/02/19 19:53 Last Admin: 01/05/19 06:31 Dose: 650 mg Al Hydrox/Mg Hydrox/Simethicone (Maalox) 30 ml PO Q4HR PRN PRN Reason: GI DISTRESS Stop: 03/02/19 19:53 Last Admin: 01/02/19 06:02 Dose: 30 ml Divalproex Sodium (Depakote Dr) 250 mg PO BID JENISE; Protocol Stop: 03/04/19 08:59 Last Admin: 01/05/19 16:59 Dose: 250 mg Levofloxacin (Levaquin) 500 mg PO DAILY JENISE Stop: 03/03/19 08:59 Last Admin: 01/05/19 09:13 Dose: 500 mg Lorazepam (Ativan) 0.5 mg PO Q4HR PRN; Protocol PRN Reason: Agitation Stop: 01/31/19 19:53 Last Admin: 01/05/19 15:16 Dose: 0.5 mg Magnesium Hydroxide (Milk Of Magnesia) 30 ml PO HS PRN PRN Reason: Constipation Multivitamins/Vitamin C (Theragran) 1 tab PO DAILY JENISE Stop: 03/03/19 08:59 Last Admin: 01/05/19 09:14 Dose: 1 tab Quetiapine Fumarate (Seroquel) 50 mg PO HS JENISE; Protocol Stop: 03/06/19 20:59 Zolpidem Tartrate (Ambien) 5 mg PO HS PRN PRN Reason: Insomnia Stop: 03/02/19 19:53 Last Admin: 01/04/19 22:31 Dose: 5 mg Physical Exam: 63 y/o male patient was admitted due to Agitation, Patient is still getting easily frustrated with episodes of confusion. We will continue to monitor and treat patient. General: weak, other (Agitated and irritated.) HEENT: NC/AT Neck: Supple Lungs: CTAB Cardiovascular: RRR, Normal S1 Abdomen: soft, non-tender Extremities: clear Neurological: no change Internal Medicine Assmt/Plan - Assessment Assessment: Episodes of confusion. Bipolar disorder. Agitated. Htn. Leukocytosis. UTI. - Plan Plan: Continuation of care. Monitor Vitals and Labs. Continue present meds as directed. Monitor Diet/Nutritional support. Psych management per Psych. Pain Management. Supportive care. Fall precaution, frequent nursing rounds, and as needed restraints to prevent fall. Continue collaborating with consulting specialists, case management and nursing team. Will Monitor patient and continue present care management. Nutritional Asmnt/Malnutr-PDOC - Dietary Evaluation Malnutrition Findings (Please click <Entered> for more info): see orders.
--- NOTE | 2019-01-05 23:15 | Progress Notes ---
DATE: 01/05/2019 SUBJECTIVE: Staff was spoken to. The patient is interviewed. Mood is noted to be irritable. Affect is constricted. Insight and judgment are noted to be still impaired. Impulse control is noted to be limited. The patient is stating that he needs to be leaving, but he cannot be in here. The patient has no place to return to. The patient has been going on a tangent. The patient is currently on 25 mg of the Seroquel at night time and planning to increase this one to 50 mg and follow the patient up with supportive therapy. ASSESSMENT: The patient is still psychotic and having mood swings. PLAN: To continue the patient with supportive therapy, encouraged the patient to verbalize the concerns rather than to act out. JOB# [id number]
[2019-01-06] MEDS: Multivitamin Tab PO SCH (08:02)
--- NOTE | 2019-01-06 10:35 | Internal Medicine Prog Note ---
Internal Medicine Subjective - Subjective Service Date: 01/06/19 Patient seen and examined:: with staff Patient is:: awake, agitated, confused Patient Complaints of:: pain with urination Per staff patient has:: no adverse event, no episodes of fall Internal Medicine Objective - Results Result Diagrams: 01/01/19 10:50 01/01/19 10:50 Recent Labs: Laboratory Last Values WBC 14.1 Th/cmm (4.8-10.8) H 01/01/19 10:50 RBC 4.55 Mil/cmm (3.80-5.80) 01/01/19 10:50 Hgb 14.2 gm/dL (12-16) 01/01/19 10:50 Hct 42.4 % (41.0-60) 01/01/19 10:50 MCV 93.4 fl (80-99) 01/01/19 10:50 MCH 31.3 pg (27.0-31.0) H 01/01/19 10:50 MCHC Differential 33.5 pg (28.0-36.0) 01/01/19 10:50 RDW 14.1 % (11.5-20.0) 01/01/19 10:50 Plt Count 371 Th/cmm (150-400) 01/01/19 10:50 MPV 7.9 fl 01/01/19 10:50 Neutrophils % 79.8 % (40.0-80.0) 01/01/19 10:50 Lymphocytes % 12.4 % (20.0-50.0) L 01/01/19 10:50 Monocytes % 7.0 % (2.0-10.0) 01/01/19 10:50 Eosinophils % 0.8 % (0.0-5.0) 01/01/19 10:50 Basophils % 0.0 % (0.0-2.0) 01/01/19 10:50 Sodium 130 mEq/L (136-145) L 01/01/19 10:50 Potassium 4.5 mEq/L (3.5-5.1) 01/01/19 10:50 Chloride 95 mEq/L (98-107) L 01/01/19 10:50 Carbon Dioxide 25.5 mEq/L (21.0-31.0) 01/01/19 10:50 Anion Gap 14.0 (7.0-16.0) 01/01/19 10:50 BUN 20 mg/dL (7-25) 01/01/19 10:50 Creatinine 0.7 mg/dL (0.7-1.3) 01/01/19 10:50 Est GFR ( Amer) > 60.0 ml/min (>90) 01/01/19 10:50 Est GFR (Non-Af Amer) > 60.0 ml/min 01/01/19 10:50 BUN/Creatinine Ratio 28.6 01/01/19 10:50 Glucose 88 mg/dL (70-105) 01/01/19 10:50 Calcium 9.6 mg/dL (8.6-10.3) 01/01/19 10:50 Total Bilirubin 0.4 mg/dL (0.3-1.0) 01/01/19 10:50 AST 48 U/L (13-39) H 01/01/19 10:50 ALT 37 U/L (7-52) 01/01/19 10:50 Alkaline Phosphatase 50 U/L (34-104) 01/01/19 10:50 Troponin I 0.01 ng/mL (0.01-0.05) 01/01/19 10:50 Total Protein 7.7 gm/dL (6.0-8.3) 01/01/19 10:50 Albumin 4.3 gm/dL (4.2-5.5) 01/01/19 10:50 Globulin 3.4 gm/dL 01/01/19 10:50 Albumin/Globulin Ratio 1.3 (1.0-1.8) 01/01/19 10:50 Triglycerides 64 mg/dL (<150) 01/01/19 10:50 Cholesterol 156 mg/dL (<200) 01/01/19 10:50 LDL Cholesterol Direct 76 mg/dL (75-193) 01/01/19 10:50 HDL Cholesterol 70 mg/dL (23-92) 01/01/19 10:50 TSH 3.15 uIU/ml (0.34-5.60) 01/01/19 10:50 Urine Source CLEAN C 01/01/19 11:28 Urine Color YELLOW 01/01/19 11:28 Urine Clarity CLEAR (CLEAR) 01/01/19 11:28 Urine pH 6.0 (4.6 - 8.0) 01/01/19 11:28 Ur Specific [place] 1.015 (1.005-1.030) 01/01/19 11:28 Urine Protein NEGATIVE mg/dL (NEGATIVE) 01/01/19 11:28 Urine Glucose (UA) NEGATIVE mg/dL (NEGATIVE) 01/01/19 11:28 Urine Ketones NEGATIVE mg/dL (NEGATIVE) 01/01/19 11:28 Urine Blood NEGATIVE (NEGATIVE) 01/01/19 11:28 Urine Nitrate NEGATIVE (NEGATIVE) 01/01/19 11:28 Urine Bilirubin NEGATIVE (NEGATIVE) 01/01/19 11:28 Urine Urobilinogen 0.2 E.U./dL (0.2 - 1.0) 01/01/19 11:28 Ur Leukocyte Esterase NEGATIVE (NEGATIVE) 01/01/19 11:28 Urine RBC 0-2 /hpf (0-5) H 01/01/19 11:28 Urine WBC 0-2 /hpf (0-5) 01/01/19 11:28 Ur Epithelial Cells NONE SEEN /lpf (FEW) 01/01/19 11:28 Urine Bacteria FEW /hpf (NONE SEEN) 01/01/19 11:28 Salicylates < 25.0 mg/L (30.0-100.0) L 01/01/19 10:50 Urine Opiates Screen NEGATIVE (NEGATIVE) 01/01/19 11:28 Urine Methadone Screen NEGATIVE (NEGATIVE) 01/01/19 11:28 Acetaminophen < 10.0 ug/mL (10.0-30.0) L 01/01/19 10:50 Ur Barbiturates Screen NEGATIVE (NEGATIVE) 01/01/19 11:28 Ur Tricyclics Screen NEGATIVE (NEGATIVE) 01/01/19 11:28 Ur Phencyclidine Scrn NEGATIVE (NEGATIVE) 01/01/19 11:28 Amphetamines Screen NEGATIVE (NEGATIVE) 01/01/19 11:28 U Methamphetamines Scrn NEGATIVE (NEGATIVE) 01/01/19 11:28 U Benzodiazepines Scrn NEGATIVE (NEGATIVE) 01/01/19 11:28 U Cocaine Metab Screen NEGATIVE (NEGATIVE) 01/01/19 11:28 U Cannabinoids Screen NEGATIVE (NEGATIVE) 01/01/19 11:28 Ethyl Alcohol < 10 mg/dL (0-10) 01/01/19 10:50 RPR NONREACTIVE (NONREACTIVE) 01/01/19 10:50 - Physical Exam Vitals and I&O: Vital Signs Temp 97.8 F 01/06/19 06:34 Pulse 83 01/06/19 06:34 Resp 19 01/06/19 06:34 BP 144/86 01/06/19 06:34 Pulse Ox 98 01/06/19 06:34 Intake & Output 01/05/19 01/06/19 01/06/19 18:59 06:59 18:59 Intake Total 1800 120 Balance 1800 120 Intake: Oral 1800 120 Other: # Voids 4 3 # Bowel Movements 1 Stool Characteristics Soft Active Medications: Current Medications Acetaminophen (Tylenol) 650 mg PO Q4HR PRN PRN Reason: Mild Pain / Temp above 100 Stop: 03/02/19 19:53 Last Admin: 01/06/19 09:00 Dose: 650 mg Al Hydrox/Mg Hydrox/Simethicone (Maalox) 30 ml PO Q4HR PRN PRN Reason: GI DISTRESS Stop: 03/02/19 19:53 Last Admin: 01/02/19 06:02 Dose: 30 ml Divalproex Sodium (Depakote Dr) 250 mg PO BID JENISE; Protocol Stop: 03/04/19 08:59 Last Admin: 01/06/19 08:03 Dose: 250 mg Levofloxacin (Levaquin) 500 mg PO DAILY JENISE Stop: 03/03/19 08:59 Last Admin: 01/06/19 08:02 Dose: 500 mg Lorazepam (Ativan) 0.5 mg PO Q4HR PRN; Protocol PRN Reason: Agitation Stop: 01/31/19 19:53 Last Admin: 01/06/19 02:21 Dose: 0.5 mg Magnesium Hydroxide (Milk Of Magnesia) 30 ml PO HS PRN PRN Reason: Constipation Multivitamins/Vitamin C (Theragran) 1 tab PO DAILY JENISE Stop: 03/03/19 08:59 Last Admin: 01/06/19 08:02 Dose: 1 tab Quetiapine Fumarate (Seroquel) 50 mg PO HS JENISE; Protocol Stop: 03/06/19 20:59 Last Admin: 01/05/19 20:37 Dose: 50 mg Zolpidem Tartrate (Ambien) 5 mg PO HS PRN PRN Reason: Insomnia Stop: 03/02/19 19:53 Last Admin: 01/04/19 22:31 Dose: 5 mg Physical Exam: 63 y/o male patient was admitted due to Agitation, Patient is still getting easily irritated with episodes of confusion. We will continue to monitor and treat patient. General: weak, other (Agitated and irritated.) HEENT: NC/AT Neck: Supple Lungs: CTAB Cardiovascular: RRR, Normal S1 Abdomen: soft, non-tender Extremities: clear Neurological: no change Internal Medicine Assmt/Plan - Assessment Assessment: Episodes of confusion. Bipolar disorder. Agitated. Htn. Leukocytosis. UTI. - Plan Plan: Continuation of care. Monitor Vitals and Labs. Continue present meds as directed. Monitor Diet/Nutritional support. Psych management per Psych. Pain Management. Supportive care. Fall precaution, frequent nursing rounds, and as needed restraints to prevent fall. Continue collaborating with consulting specialists, case management and nursing team. Will Monitor patient and continue present care management. Nutritional Asmnt/Malnutr-PDOC - Dietary Evaluation Malnutrition Findings (Please click <Entered> for more info): see orders.
--- NOTE | 2019-01-07 03:06 | Progress Notes ---
DATE: 01/06/2019 PSYCHOLOGY PROGRESS NOTE SUBJECTIVE: The patient is seen and is interviewed. Case is discussed with staff. The patient continues to present as easily irritated and guarded. The staff reports the patient has been demanding to leave the facility and stating that he cannot be here. The patient's impulse control is somewhat limited. The patient is going off on a tangent when asked certain clinical questions i.e., how is his appetite, how is his sleep, does he understand where he is. The patient continued to repeat that he feels he needs to be discharged. OBJECTIVE: Mood is irritable. Affect is constricted. Thought process shows to be confused. The patient's thought process is also markedly tangential. Thought content shows the patient is exhibiting psychotic process and continues to have mood swings. The patient's impulse control is limited. ASSESSMENT AND PLAN: Psychosis and mood swings persist. We will continue to provide supportive psychotherapy to include reality integration. We will encourage the patient to demonstrate emotional and self-regulation and to verbalize his concerns versus verbally acting out. We will provide remotivation for the patient to become compliant and stay compliant with his care and treatment. We will continue to encourage the patient to accept placement versus homelessness. We will provide coping strategies for phase of life issues. We will follow up in 2 days to continue the present treatment if the patient remains admitted on the unit. JOB# [id number] RIKA
--- NOTE | 2019-01-07 03:59 | Progress Notes ---
DATE: 01/06/2019 PSYCHIATRIC PROGRESS NOTE SUBJECTIVE: Staff was spoken to. The patient is interviewed. Mood is noted to be irritable. Affect is constricted. Insight and judgment are noted to be still impaired. Impulse control is noted to be limited. Coping skills are noted to be limited. The patient has been going on a tangent. The patient has no insight into his illness. The patient continues to be very paranoid and has been having acute mood swings. The patient has no place to return to. The patient is stating that he does not have any money to pay for anything. The patient, however, is stating that he needs to go to [place] [facility] and he has to apply for food stamps. ASSESSMENT: The patient is still grossly psychotic and impulsive and gravely disabled. PLAN: To continue the patient with the supportive therapy, encouraged the patient to verbalize the concerns. In view of the psychosis and mood swings, I am increasing the dose of the Seroquel 100 mg and follow the patient up. [facility]# [id number]
[2019-01-07] MEDS: Multivitamin Tab PO SCH (08:11)
[2019-01-07] MEDS ORDERED: Haloperidol Lactate 5 mg/mL 1mL Vial IM ONE (15:55)
[2019-01-08] MEDS: Multivitamin Tab PO SCH (08:47)
--- NOTE | 2019-01-08 10:57 | Internal Medicine Prog Note ---
Internal Medicine Subjective - Subjective Service Date: 01/08/19 Patient is:: awake, agitated, confused Patient Complaints of:: pain with urination Per staff patient has:: no adverse event, no episodes of fall Internal Medicine Objective - Results Result Diagrams: 01/01/19 10:50 01/01/19 10:50 Recent Labs: Laboratory Last Values WBC 14.1 Th/cmm (4.8-10.8) H 01/01/19 10:50 RBC 4.55 Mil/cmm (3.80-5.80) 01/01/19 10:50 Hgb 14.2 gm/dL (12-16) 01/01/19 10:50 Hct 42.4 % (41.0-60) 01/01/19 10:50 MCV 93.4 fl (80-99) 01/01/19 10:50 MCH 31.3 pg (27.0-31.0) H 01/01/19 10:50 MCHC Differential 33.5 pg (28.0-36.0) 01/01/19 10:50 RDW 14.1 % (11.5-20.0) 01/01/19 10:50 Plt Count 371 Th/cmm (150-400) 01/01/19 10:50 MPV 7.9 fl 01/01/19 10:50 Neutrophils % 79.8 % (40.0-80.0) 01/01/19 10:50 Lymphocytes % 12.4 % (20.0-50.0) L 01/01/19 10:50 Monocytes % 7.0 % (2.0-10.0) 01/01/19 10:50 Eosinophils % 0.8 % (0.0-5.0) 01/01/19 10:50 Basophils % 0.0 % (0.0-2.0) 01/01/19 10:50 Sodium 130 mEq/L (136-145) L 01/01/19 10:50 Potassium 4.5 mEq/L (3.5-5.1) 01/01/19 10:50 Chloride 95 mEq/L (98-107) L 01/01/19 10:50 Carbon Dioxide 25.5 mEq/L (21.0-31.0) 01/01/19 10:50 Anion Gap 14.0 (7.0-16.0) 01/01/19 10:50 BUN 20 mg/dL (7-25) 01/01/19 10:50 Creatinine 0.7 mg/dL (0.7-1.3) 01/01/19 10:50 Est GFR ( Amer) > 60.0 ml/min (>90) 01/01/19 10:50 Est GFR (Non-Af Amer) > 60.0 ml/min 01/01/19 10:50 BUN/Creatinine Ratio 28.6 01/01/19 10:50 Glucose 88 mg/dL (70-105) 01/01/19 10:50 Calcium 9.6 mg/dL (8.6-10.3) 01/01/19 10:50 Total Bilirubin 0.4 mg/dL (0.3-1.0) 01/01/19 10:50 AST 48 U/L (13-39) H 01/01/19 10:50 ALT 37 U/L (7-52) 01/01/19 10:50 Alkaline Phosphatase 50 U/L (34-104) 01/01/19 10:50 Troponin I 0.01 ng/mL (0.01-0.05) 01/01/19 10:50 Total Protein 7.7 gm/dL (6.0-8.3) 01/01/19 10:50 Albumin 4.3 gm/dL (4.2-5.5) 01/01/19 10:50 Globulin 3.4 gm/dL 01/01/19 10:50 Albumin/Globulin Ratio 1.3 (1.0-1.8) 01/01/19 10:50 Triglycerides 64 mg/dL (<150) 01/01/19 10:50 Cholesterol 156 mg/dL (<200) 01/01/19 10:50 LDL Cholesterol Direct 76 mg/dL (75-193) 01/01/19 10:50 HDL Cholesterol 70 mg/dL (23-92) 01/01/19 10:50 TSH 3.15 uIU/ml (0.34-5.60) 01/01/19 10:50 Urine Source CLEAN C 01/01/19 11:28 Urine Color YELLOW 01/01/19 11:28 Urine Clarity CLEAR (CLEAR) 01/01/19 11:28 Urine pH 6.0 (4.6 - 8.0) 01/01/19 11:28 Ur Specific [place] 1.015 (1.005-1.030) 01/01/19 11:28 Urine Protein NEGATIVE mg/dL (NEGATIVE) 01/01/19 11:28 Urine Glucose (UA) NEGATIVE mg/dL (NEGATIVE) 01/01/19 11:28 Urine Ketones NEGATIVE mg/dL (NEGATIVE) 01/01/19 11:28 Urine Blood NEGATIVE (NEGATIVE) 01/01/19 11:28 Urine Nitrate NEGATIVE (NEGATIVE) 01/01/19 11:28 Urine Bilirubin NEGATIVE (NEGATIVE) 01/01/19 11:28 Urine Urobilinogen 0.2 E.U./dL (0.2 - 1.0) 01/01/19 11:28 Ur Leukocyte Esterase NEGATIVE (NEGATIVE) 01/01/19 11:28 Urine RBC 0-2 /hpf (0-5) H 01/01/19 11:28 Urine WBC 0-2 /hpf (0-5) 01/01/19 11:28 Ur Epithelial Cells NONE SEEN /lpf (FEW) 01/01/19 11:28 Urine Bacteria FEW /hpf (NONE SEEN) 01/01/19 11:28 Salicylates < 25.0 mg/L (30.0-100.0) L 01/01/19 10:50 Urine Opiates Screen NEGATIVE (NEGATIVE) 01/01/19 11:28 Urine Methadone Screen NEGATIVE (NEGATIVE) 01/01/19 11:28 Acetaminophen < 10.0 ug/mL (10.0-30.0) L 01/01/19 10:50 Ur Barbiturates Screen NEGATIVE (NEGATIVE) 01/01/19 11:28 Ur Tricyclics Screen NEGATIVE (NEGATIVE) 01/01/19 11:28 Ur Phencyclidine Scrn NEGATIVE (NEGATIVE) 01/01/19 11:28 Amphetamines Screen NEGATIVE (NEGATIVE) 01/01/19 11:28 U Methamphetamines Scrn NEGATIVE (NEGATIVE) 01/01/19 11:28 U Benzodiazepines Scrn NEGATIVE (NEGATIVE) 01/01/19 11:28 U Cocaine Metab Screen NEGATIVE (NEGATIVE) 01/01/19 11:28 U Cannabinoids Screen NEGATIVE (NEGATIVE) 01/01/19 11:28 Ethyl Alcohol < 10 mg/dL (0-10) 01/01/19 10:50 RPR NONREACTIVE (NONREACTIVE) 01/01/19 10:50 - Physical Exam Vitals and I&O: Vital Signs Temp 98.7 F 01/08/19 06:27 Pulse 81 01/08/19 06:27 Resp 20 01/08/19 06:27 BP 148/79 01/08/19 06:27 Pulse Ox 93 01/08/19 06:27 Intake & Output 01/07/19 01/08/19 01/08/19 18:59 06:59 18:59 Intake Total 1200 240 Balance 1200 240 Weight (lbs) 210 lb Intake: Oral 1200 240 Other: # Voids 4 3 # Bowel Movements 1 0 Weight Source Bedscale Active Medications: Current Medications Acetaminophen (Tylenol) 650 mg PO Q4HR PRN PRN Reason: Mild Pain / Temp above 100 Stop: 03/02/19 19:53 Last Admin: 01/08/19 01:19 Dose: 650 mg Al Hydrox/Mg Hydrox/Simethicone (Maalox) 30 ml PO Q4HR PRN PRN Reason: GI DISTRESS Stop: 03/02/19 19:53 Last Admin: 01/02/19 06:02 Dose: 30 ml Divalproex Sodium (Depakote Dr) 500 mg PO BID JENISE; Protocol Stop: 03/09/19 08:59 Last Admin: 01/08/19 08:47 Dose: 500 mg Levofloxacin (Levaquin) 500 mg PO DAILY JENISE Stop: 03/03/19 08:59 Last Admin: 01/08/19 08:47 Dose: 500 mg Lorazepam (Ativan) 0.5 mg PO Q4HR PRN; Protocol PRN Reason: Agitation Stop: 01/31/19 19:53 Last Admin: 01/08/19 08:47 Dose: 0.5 mg Magnesium Hydroxide (Milk Of Magnesia) 30 ml PO HS PRN PRN Reason: Constipation Multivitamins/Vitamin C (Theragran) 1 tab PO DAILY JENISE Stop: 03/03/19 08:59 Last Admin: 01/08/19 08:47 Dose: 1 tab Quetiapine Fumarate (Seroquel) 100 mg PO HS JENISE; Protocol Stop: 03/07/19 20:59 Last Admin: 01/07/19 20:59 Dose: 100 mg Zolpidem Tartrate (Ambien) 5 mg PO HS PRN PRN Reason: Insomnia Stop: 03/02/19 19:53 Last Admin: 01/07/19 21:17 Dose: 5 mg General: weak, other (Agitated and irritated.) HEENT: NC/AT Neck: Supple Lungs: CTAB Cardiovascular: RRR, Normal S1 Abdomen: soft, non-tender Extremities: clear Neurological: no change Internal Medicine Assmt/Plan - Assessment Assessment: Episodes of confusion. Bipolar disorder. Agitated. Htn. Leukocytosis. UTI. - Plan Plan: fall precautions continue current plan of care Nutritional Asmnt/Malnutr-PDOC - Dietary Evaluation Malnutrition Findings (Please click <Entered> for more info): Nutritional Asmnt/Malnutrition Start: 01/06/19 14: 35 Text: Status: Complete Freq: Protocol: Document 01/06/19 14:36 [email or web address] (Rec: 01/06/19 14:50 [email or web address]) Nutritional Asmnt/Malnutrition Patient General Information Nutritional Screening Low Risk Diagnosis psychosis, UTI, leukocytosis, agitation Pertinent Medical Hx/Surgical Hx HTN, bipolar, current smoker Subjective Information [facility] seen in community center, reports good appetite and po intake, tolerating diet without chew/swallow difficulty, NKFA however with food preferences/dislikes ( communicated to dietary staff) , no n/v/d however states UBW 165-175 lb but unable to recall last time pt was this wt. Current wt 210 lb, estimated 01/02. Current Diet Order/ Nutrition Support regular Patient / S.O Not Indicated Pertinent Medications Maalox, Theragran, PRN MOM Pertinent Labs (01/01) Na 130, Cl 95, AST 48 Nutritional Hx/Data Height 5 ft 9 in Height (Calculated Centimeters) 175.3 Current Weight (lbs) 210 lb Weight (Calculated Kilograms) 95.3 Weight (Calculated Grams) 21987.4 Usual body Weight (lbs) 170 % Usual Body Weight 124 [place] Body Weight 160 lb % [place] Body Weight 131 Body Mass Index (BMI) 31.0 Weight Status Obese GI Symptoms GI Symptoms None Last BM 6/3 Difficult in: None Food Allergies No Skin Integrity/Comment: John score 22, area of concern/redness per flowsheet Current %PO Good (75-100%) Estimated Nutritional Goals BEE in Kcals: Adj wt of IBW Calories/Kcals/Kg 1719-9711 Kcals Calculated 25-30 kcal/kg Protein: Adj wt of IBW Protein g/k Protein Calculated 1 g/kg Fluid: ml 9251-1387 ml Nutritional Problem 1. Problem Problem Altered nutrition related labs Etiology medical condition Signs/Symptoms: Na 130, Cl 95 Intervention/Recommendation Comments 1. continue current diet 2. Monitor PO intake, wt, labs and skin integrity 3. F/U as low risk in 7 days Expected Outcomes/Goals Expected Outcomes/Goals 1. PO intake to meet at least 75% of nutritional needs. 2. Wt stability, maintain skin integrity, labs to approach WNL Sobeida Wilhelm RD
--- NOTE | 2019-01-08 20:13 | Progress Notes ---
DATE: 01/07/2019 PSYCHOTHERAPY PROGRESS NOTE SUBJECTIVE: Staff was spoken to. The patient is interviewed. Mood is noted to be irritable. Affect is constricted. Insight and judgment are noted to be still impaired. Impulse control is noted to be poor. The patient has been screaming and yelling. The patient could not be contained and redirected and hence the patient has to be placed on emergency dose of medications and the patient has to be closely monitored and redirected. The patient has been found with a placement, but the patient has been not willing to go there and then states that he would rather stay in here. The patient has no insight into his illness. The patient is currently on 100 mg of the Seroquel and Depakote is increased to 500 mg twice a day and the patient is going to be followed up with the supportive therapy. ASSESSMENT: The patient is still impulsive. PLAN: To continue the patient with the supportive therapy and followup. JOB# [id number]
--- NOTE | 2019-01-09 02:45 | Progress Notes ---
DATE: 01/08/2019 PSYCHOLOGY PROGRESS NOTE SUBJECTIVE: The patient is seen and is interviewed. Case is discussed with staff. The patient continues to present as easily irritated. The patient seems to be going off on a tangent and is difficult to cognitively redirect. There is some evidence of paranoid ideation present. Staff reports the patient continues to exhibit mood fluctuations. The patient continued to perseverate on needing to go to [facility] and being discharged there because he has to apply for food stamps and get his check. OBJECTIVE: Mood is irritable. Affect is constricted. Thought process shows to be confused and markedly tangential. There is some evidence of paranoid ideation. The patient denied any hallucinations, both auditory or visual. The patient continues to perseverate on discharging to [place] on his own. The patient has been taking his p.o. medications. ASSESSMENT AND PLAN: The patient's psychosis and impulsivity persist. The patient is still evaluated as gravely disabled. We provided reality orientation , differentiation and integration. We provided remotivation for the patient to become compliant and stay compliant with his care and treatment, which is to include placement. The patient's mood swings are still occurring. The attending psychiatrist apparently is increasing the dose of Seroquel to 100 mg. We will continue to encourage the patient to demonstrate emotional and self-regulation and to follow through with staff direction. We will provide coping strategies for phase of life issues. We will follow up in 2 days to continue the present treatment if the patient remains admitted on the unit. JOB# [id number] RIKA
--- NOTE | 2019-01-09 03:59 | Progress Notes ---
DATE: 01/08/2019 SUBJECTIVE: Staff was spoken to. The patient is interviewed. The patient is noted to be very intrusive and impulsive and needs to be redirected constantly. The patient has no place to return to. The patient is stating that he needs to get his social security reinstated when he was at a [employer], he lost it. The patient has been getting easily agitated. ASSESSMENT: The patient is still psychotic. PLAN: To continue the patient with the current medications and work with the social media senior associate in placement of this patient. JOB# [id number]
[2019-01-09] MEDS: Multivitamin Tab PO SCH (08:49)
--- NOTE | 2019-01-09 18:17 | Internal Medicine Prog Note ---
Internal Medicine Subjective - Subjective Service Date: 01/09/19 Patient is:: awake, agitated, confused Patient Complaints of:: pain with urination Per staff patient has:: no adverse event, no episodes of fall Internal Medicine Objective - Results Result Diagrams: 01/01/19 10:50 01/01/19 10:50 Recent Labs: Laboratory Last Values WBC 14.1 Th/cmm (4.8-10.8) H 01/01/19 10:50 RBC 4.55 Mil/cmm (3.80-5.80) 01/01/19 10:50 Hgb 14.2 gm/dL (12-16) 01/01/19 10:50 Hct 42.4 % (41.0-60) 01/01/19 10:50 MCV 93.4 fl (80-99) 01/01/19 10:50 MCH 31.3 pg (27.0-31.0) H 01/01/19 10:50 MCHC Differential 33.5 pg (28.0-36.0) 01/01/19 10:50 RDW 14.1 % (11.5-20.0) 01/01/19 10:50 Plt Count 371 Th/cmm (150-400) 01/01/19 10:50 MPV 7.9 fl 01/01/19 10:50 Neutrophils % 79.8 % (40.0-80.0) 01/01/19 10:50 Lymphocytes % 12.4 % (20.0-50.0) L 01/01/19 10:50 Monocytes % 7.0 % (2.0-10.0) 01/01/19 10:50 Eosinophils % 0.8 % (0.0-5.0) 01/01/19 10:50 Basophils % 0.0 % (0.0-2.0) 01/01/19 10:50 Sodium 130 mEq/L (136-145) L 01/01/19 10:50 Potassium 4.5 mEq/L (3.5-5.1) 01/01/19 10:50 Chloride 95 mEq/L (98-107) L 01/01/19 10:50 Carbon Dioxide 25.5 mEq/L (21.0-31.0) 01/01/19 10:50 Anion Gap 14.0 (7.0-16.0) 01/01/19 10:50 BUN 20 mg/dL (7-25) 01/01/19 10:50 Creatinine 0.7 mg/dL (0.7-1.3) 01/01/19 10:50 Est GFR ( Amer) > 60.0 ml/min (>90) 01/01/19 10:50 Est GFR (Non-Af Amer) > 60.0 ml/min 01/01/19 10:50 BUN/Creatinine Ratio 28.6 01/01/19 10:50 Glucose 88 mg/dL (70-105) 01/01/19 10:50 Calcium 9.6 mg/dL (8.6-10.3) 01/01/19 10:50 Total Bilirubin 0.4 mg/dL (0.3-1.0) 01/01/19 10:50 AST 48 U/L (13-39) H 01/01/19 10:50 ALT 37 U/L (7-52) 01/01/19 10:50 Alkaline Phosphatase 50 U/L (34-104) 01/01/19 10:50 Troponin I 0.01 ng/mL (0.01-0.05) 01/01/19 10:50 Total Protein 7.7 gm/dL (6.0-8.3) 01/01/19 10:50 Albumin 4.3 gm/dL (4.2-5.5) 01/01/19 10:50 Globulin 3.4 gm/dL 01/01/19 10:50 Albumin/Globulin Ratio 1.3 (1.0-1.8) 01/01/19 10:50 Triglycerides 64 mg/dL (<150) 01/01/19 10:50 Cholesterol 156 mg/dL (<200) 01/01/19 10:50 LDL Cholesterol Direct 76 mg/dL (75-193) 01/01/19 10:50 HDL Cholesterol 70 mg/dL (23-92) 01/01/19 10:50 TSH 3.15 uIU/ml (0.34-5.60) 01/01/19 10:50 Urine Source CLEAN C 01/01/19 11:28 Urine Color YELLOW 01/01/19 11:28 Urine Clarity CLEAR (CLEAR) 01/01/19 11:28 Urine pH 6.0 (4.6 - 8.0) 01/01/19 11:28 Ur Specific [place] 1.015 (1.005-1.030) 01/01/19 11:28 Urine Protein NEGATIVE mg/dL (NEGATIVE) 01/01/19 11:28 Urine Glucose (UA) NEGATIVE mg/dL (NEGATIVE) 01/01/19 11:28 Urine Ketones NEGATIVE mg/dL (NEGATIVE) 01/01/19 11:28 Urine Blood NEGATIVE (NEGATIVE) 01/01/19 11:28 Urine Nitrate NEGATIVE (NEGATIVE) 01/01/19 11:28 Urine Bilirubin NEGATIVE (NEGATIVE) 01/01/19 11:28 Urine Urobilinogen 0.2 E.U./dL (0.2 - 1.0) 01/01/19 11:28 Ur Leukocyte Esterase NEGATIVE (NEGATIVE) 01/01/19 11:28 Urine RBC 0-2 /hpf (0-5) H 01/01/19 11:28 Urine WBC 0-2 /hpf (0-5) 01/01/19 11:28 Ur Epithelial Cells NONE SEEN /lpf (FEW) 01/01/19 11:28 Urine Bacteria FEW /hpf (NONE SEEN) 01/01/19 11:28 Salicylates < 25.0 mg/L (30.0-100.0) L 01/01/19 10:50 Urine Opiates Screen NEGATIVE (NEGATIVE) 01/01/19 11:28 Urine Methadone Screen NEGATIVE (NEGATIVE) 01/01/19 11:28 Acetaminophen < 10.0 ug/mL (10.0-30.0) L 01/01/19 10:50 Ur Barbiturates Screen NEGATIVE (NEGATIVE) 01/01/19 11:28 Ur Tricyclics Screen NEGATIVE (NEGATIVE) 01/01/19 11:28 Ur Phencyclidine Scrn NEGATIVE (NEGATIVE) 01/01/19 11:28 Amphetamines Screen NEGATIVE (NEGATIVE) 01/01/19 11:28 U Methamphetamines Scrn NEGATIVE (NEGATIVE) 01/01/19 11:28 U Benzodiazepines Scrn NEGATIVE (NEGATIVE) 01/01/19 11:28 U Cocaine Metab Screen NEGATIVE (NEGATIVE) 01/01/19 11:28 U Cannabinoids Screen NEGATIVE (NEGATIVE) 01/01/19 11:28 Ethyl Alcohol < 10 mg/dL (0-10) 01/01/19 10:50 RPR NONREACTIVE (NONREACTIVE) 01/01/19 10:50 - Physical Exam Vitals and I&O: Vital Signs Temp 97.7 F 01/09/19 06:40 Pulse 95 01/09/19 06:40 Resp 20 01/09/19 06:40 BP 142/90 01/09/19 06:40 Pulse Ox 97 01/09/19 06:40 Intake & Output 01/08/19 01/09/19 01/09/19 18:59 06:59 18:59 Intake Total 1600 120 Balance 1600 120 Intake: Oral 1600 120 Other: # Voids 4 3 # Bowel Movements 0 Active Medications: Current Medications Acetaminophen (Tylenol) 650 mg PO Q4HR PRN PRN Reason: Mild Pain / Temp above 100 Stop: 03/02/19 19:53 Last Admin: 01/09/19 14:40 Dose: 650 mg Al Hydrox/Mg Hydrox/Simethicone (Maalox) 30 ml PO Q4HR PRN PRN Reason: GI DISTRESS Stop: 03/02/19 19:53 Last Admin: 01/02/19 06:02 Dose: 30 ml Divalproex Sodium (Depakote Dr) 500 mg PO BID [facility]; Protocol Stop: 03/09/19 08:59 Last Admin: 01/09/19 17:12 Dose: 500 mg Levofloxacin (Levaquin) 500 mg PO DAILY [facility] Stop: 03/03/19 08:59 Last Admin: 01/09/19 08:48 Dose: 500 mg Lorazepam (Ativan) 0.5 mg PO Q4HR PRN; Protocol PRN Reason: Agitation Stop: 01/31/19 19:53 Last Admin: 01/09/19 14:42 Dose: 0.5 mg Magnesium Hydroxide (Milk Of Magnesia) 30 ml PO HS PRN PRN Reason: Constipation Multivitamins/Vitamin C (Theragran) 1 tab PO DAILY JENISE Stop: 03/03/19 08:59 Last Admin: 01/09/19 08:49 Dose: 1 tab Quetiapine Fumarate (Seroquel) 100 mg PO HS [facility]; Protocol Stop: 03/07/19 20:59 Zolpidem Tartrate (Ambien) 5 mg PO HS PRN PRN Reason: Insomnia Stop: 03/02/19 19:53 Last Admin: 01/08/19 20:24 Dose: 5 mg General: weak, other (Agitated and irritated.) HEENT: NC/AT Neck: Supple Lungs: CTAB Cardiovascular: RRR, Normal S1 Abdomen: soft, non-tender Extremities: clear Neurological: no change Internal Medicine Assmt/Plan - Assessment Assessment: Episodes of confusion. Bipolar disorder. Agitated. Htn. Leukocytosis. UTI. - Plan Plan: fall precautions continue current plan of care Nutritional Asmnt/Malnutr-PDOC - Dietary Evaluation Malnutrition Findings (Please click <Entered> for more info): Nutritional Asmnt/Malnutrition Start: 01/06/19 14: 35 Text: Status: Complete Freq: Protocol: Document 01/06/19 14:36 [email or web address] (Rec: 01/06/19 14:50 [email or web address]) Nutritional Asmnt/Malnutrition Patient General Information Nutritional Screening Low Risk Diagnosis psychosis, UTI, leukocytosis, agitation Pertinent Medical Hx/Surgical Hx HTN, bipolar, current smoker Subjective Information Pt seen in community center, reports good appetite and po intake, tolerating diet without chew/swallow difficulty, NKFA however with food preferences/dislikes ( communicated to dietary staff) , no n/v/d however states UBW 165-175 lb but unable to recall last time pt was this wt. Current wt 210 lb, estimated 01/02. Current Diet Order/ Nutrition Support regular Patient / S.O Not Indicated Pertinent Medications Maalox, Theragran, PRN MOM Pertinent Labs (01/01) Na 130, Cl 95, AST 48 Nutritional Hx/Data Height 5 ft 9 in Height (Calculated Centimeters) 175.3 Current Weight (lbs) 210 lb Weight (Calculated Kilograms) 95.3 Weight (Calculated Grams) 14334.4 Usual body Weight (lbs) 170 % Usual Body Weight 124 [place] Body Weight 160 lb % [place] Body Weight 131 Body Mass Index (BMI) 31.0 Weight Status Obese GI Symptoms GI Symptoms None Last BM 6/3 Difficult in: None Food Allergies No Skin Integrity/Comment: John score 22, area of concern/redness per flowsheet Current %PO Good (75-100%) Estimated Nutritional Goals BEE in Kcals: Adj wt of IBW Calories/Kcals/Kg 6117-0846 Kcals Calculated 25-30 kcal/kg Protein: Adj wt of IBW Protein g/k Protein Calculated 1 g/kg Fluid: ml 5795-1886 ml Nutritional Problem 1. Problem Problem Altered nutrition related labs Etiology medical condition Signs/Symptoms: Na 130, Cl 95 Intervention/Recommendation Comments 1. continue current diet 2. Monitor PO intake, wt, labs and skin integrity 3. F/U as low risk in 7 days Expected Outcomes/Goals Expected Outcomes/Goals 1. PO intake to meet at least 75% of nutritional needs. 2. Wt stability, maintain skin integrity, labs to approach WNL Sobeida Wilhelm RD
--- NOTE | 2019-01-10 03:39 | Progress Notes ---
DATE: 01/09/2019 PSYCHIATRIC PROGRESS NOTE SUBJECTIVE: Staff was spoken to. The patient is interviewed. Mood is noted to be irritable. Affect is constricted. Insight and judgment are noted to be still impaired. Impulse control is noted to be limited. The patient is stating that he does not know what to do when he does not have his SSI. The patient has been closely monitored at this time. The patient is redirected. No side effects to the medications are noted. The patient is claiming that the medication I am giving him making him to be slow and the patient does not want it. The patient is currently on 100 mg of the Seroquel at bedtime and also getting 500 mg twice a day of the Depakote. No side effects to the medications are noted. The patient is being closely monitored at this time and social service worker have been trying to work with the patient and then help him to be placed, so far no placement has been available. ASSESSMENT: The patient is still impulsive and paranoid. PLAN: The patient would likely benefit from the help of the social service worker in helping him to get his social security benefits and individual counseling. JOB# [id number]
[2019-01-10] MEDS: Multivitamin Tab PO SCH (08:51)
--- NOTE | 2019-01-10 09:59 | Internal Medicine Prog Note ---
Internal Medicine Subjective - Subjective Service Date: 01/10/19 Patient seen and examined:: with staff Patient is:: awake, agitated, confused Patient Complaints of:: pain with urination Per staff patient has:: no adverse event, no episodes of fall Internal Medicine Objective - Results Result Diagrams: 01/01/19 10:50 01/01/19 10:50 Recent Labs: Laboratory Last Values WBC 14.1 Th/cmm (4.8-10.8) H 01/01/19 10:50 RBC 4.55 Mil/cmm (3.80-5.80) 01/01/19 10:50 Hgb 14.2 gm/dL (12-16) 01/01/19 10:50 Hct 42.4 % (41.0-60) 01/01/19 10:50 MCV 93.4 fl (80-99) 01/01/19 10:50 MCH 31.3 pg (27.0-31.0) H 01/01/19 10:50 MCHC Differential 33.5 pg (28.0-36.0) 01/01/19 10:50 RDW 14.1 % (11.5-20.0) 01/01/19 10:50 Plt Count 371 Th/cmm (150-400) 01/01/19 10:50 MPV 7.9 fl 01/01/19 10:50 Neutrophils % 79.8 % (40.0-80.0) 01/01/19 10:50 Lymphocytes % 12.4 % (20.0-50.0) L 01/01/19 10:50 Monocytes % 7.0 % (2.0-10.0) 01/01/19 10:50 Eosinophils % 0.8 % (0.0-5.0) 01/01/19 10:50 Basophils % 0.0 % (0.0-2.0) 01/01/19 10:50 Sodium 130 mEq/L (136-145) L 01/01/19 10:50 Potassium 4.5 mEq/L (3.5-5.1) 01/01/19 10:50 Chloride 95 mEq/L (98-107) L 01/01/19 10:50 Carbon Dioxide 25.5 mEq/L (21.0-31.0) 01/01/19 10:50 Anion Gap 14.0 (7.0-16.0) 01/01/19 10:50 BUN 20 mg/dL (7-25) 01/01/19 10:50 Creatinine 0.7 mg/dL (0.7-1.3) 01/01/19 10:50 Est GFR ( Amer) > 60.0 ml/min (>90) 01/01/19 10:50 Est GFR (Non-Af Amer) > 60.0 ml/min 01/01/19 10:50 BUN/Creatinine Ratio 28.6 01/01/19 10:50 Glucose 88 mg/dL (70-105) 01/01/19 10:50 Calcium 9.6 mg/dL (8.6-10.3) 01/01/19 10:50 Total Bilirubin 0.4 mg/dL (0.3-1.0) 01/01/19 10:50 AST 48 U/L (13-39) H 01/01/19 10:50 ALT 37 U/L (7-52) 01/01/19 10:50 Alkaline Phosphatase 50 U/L (34-104) 01/01/19 10:50 Troponin I 0.01 ng/mL (0.01-0.05) 01/01/19 10:50 Total Protein 7.7 gm/dL (6.0-8.3) 01/01/19 10:50 Albumin 4.3 gm/dL (4.2-5.5) 01/01/19 10:50 Globulin 3.4 gm/dL 01/01/19 10:50 Albumin/Globulin Ratio 1.3 (1.0-1.8) 01/01/19 10:50 Triglycerides 64 mg/dL (<150) 01/01/19 10:50 Cholesterol 156 mg/dL (<200) 01/01/19 10:50 LDL Cholesterol Direct 76 mg/dL (75-193) 01/01/19 10:50 HDL Cholesterol 70 mg/dL (23-92) 01/01/19 10:50 TSH 3.15 uIU/ml (0.34-5.60) 01/01/19 10:50 Urine Source CLEAN C 01/01/19 11:28 Urine Color YELLOW 01/01/19 11:28 Urine Clarity CLEAR (CLEAR) 01/01/19 11:28 Urine pH 6.0 (4.6 - 8.0) 01/01/19 11:28 Ur Specific [place] 1.015 (1.005-1.030) 01/01/19 11:28 Urine Protein NEGATIVE mg/dL (NEGATIVE) 01/01/19 11:28 Urine Glucose (UA) NEGATIVE mg/dL (NEGATIVE) 01/01/19 11:28 Urine Ketones NEGATIVE mg/dL (NEGATIVE) 01/01/19 11:28 Urine Blood NEGATIVE (NEGATIVE) 01/01/19 11:28 Urine Nitrate NEGATIVE (NEGATIVE) 01/01/19 11:28 Urine Bilirubin NEGATIVE (NEGATIVE) 01/01/19 11:28 Urine Urobilinogen 0.2 E.U./dL (0.2 - 1.0) 01/01/19 11:28 Ur Leukocyte Esterase NEGATIVE (NEGATIVE) 01/01/19 11:28 Urine RBC 0-2 /hpf (0-5) H 01/01/19 11:28 Urine WBC 0-2 /hpf (0-5) 01/01/19 11:28 Ur Epithelial Cells NONE SEEN /lpf (FEW) 01/01/19 11:28 Urine Bacteria FEW /hpf (NONE SEEN) 01/01/19 11:28 Salicylates < 25.0 mg/L (30.0-100.0) L 01/01/19 10:50 Urine Opiates Screen NEGATIVE (NEGATIVE) 01/01/19 11:28 Urine Methadone Screen NEGATIVE (NEGATIVE) 01/01/19 11:28 Acetaminophen < 10.0 ug/mL (10.0-30.0) L 01/01/19 10:50 Ur Barbiturates Screen NEGATIVE (NEGATIVE) 01/01/19 11:28 Ur Tricyclics Screen NEGATIVE (NEGATIVE) 01/01/19 11:28 Ur Phencyclidine Scrn NEGATIVE (NEGATIVE) 01/01/19 11:28 Amphetamines Screen NEGATIVE (NEGATIVE) 01/01/19 11:28 U Methamphetamines Scrn NEGATIVE (NEGATIVE) 01/01/19 11:28 U Benzodiazepines Scrn NEGATIVE (NEGATIVE) 01/01/19 11:28 U Cocaine Metab Screen NEGATIVE (NEGATIVE) 01/01/19 11:28 U Cannabinoids Screen NEGATIVE (NEGATIVE) 01/01/19 11:28 Ethyl Alcohol < 10 mg/dL (0-10) 01/01/19 10:50 RPR NONREACTIVE (NONREACTIVE) 01/01/19 10:50 - Physical Exam Vitals and I&O: Vital Signs Temp 98.0 F 01/10/19 06:31 Pulse 97 01/10/19 06:31 Resp 18 01/10/19 06:31 BP 160/102 01/10/19 06:31 Pulse Ox 99 01/10/19 06:31 Intake & Output 01/09/19 01/10/19 01/10/19 18:59 06:59 18:59 Intake Total 360 Balance 360 Intake: Oral 360 Other: # Voids 3 2 # Bowel Movements 1 0 Active Medications: Current Medications Acetaminophen (Tylenol) 650 mg PO Q4HR PRN PRN Reason: Mild Pain / Temp above 100 Stop: 03/02/19 19:53 Last Admin: 01/09/19 23:49 Dose: 650 mg Al Hydrox/Mg Hydrox/Simethicone (Maalox) 30 ml PO Q4HR PRN PRN Reason: GI DISTRESS Stop: 03/02/19 19:53 Last Admin: 01/02/19 06:02 Dose: 30 ml Divalproex Sodium (Depakote Dr) 500 mg PO BID JENISE; Protocol Stop: 03/09/19 08:59 Last Admin: 01/10/19 08:51 Dose: 500 mg Lorazepam (Ativan) 0.5 mg PO Q4HR PRN; Protocol PRN Reason: Agitation Stop: 01/31/19 19:53 Last Admin: 01/10/19 03:06 Dose: 0.5 mg Magnesium Hydroxide (Milk Of Magnesia) 30 ml PO HS PRN PRN Reason: Constipation Multivitamins/Vitamin C (Theragran) 1 tab PO DAILY JENISE Stop: 03/03/19 08:59 Last Admin: 01/10/19 08:51 Dose: 1 tab Quetiapine Fumarate (Seroquel) 100 mg PO HS JENISE; Protocol Stop: 03/07/19 20:59 Last Admin: 01/09/19 20:57 Dose: 100 mg Zolpidem Tartrate (Ambien) 5 mg PO HS PRN PRN Reason: Insomnia Stop: 03/02/19 19:53 Last Admin: 01/09/19 20:58 Dose: 5 mg Physical Exam: 63 y/o male patient was admitted due to Agitation, Patient is dis-oriented and confused. We will continue to monitor and treat patient. General: weak, other (Agitated and irritated.) HEENT: NC/AT Neck: Supple Lungs: CTAB Cardiovascular: RRR, Normal S1 Abdomen: soft, non-tender Extremities: clear Neurological: no change Internal Medicine Assmt/Plan - Assessment Assessment: Episodes of confusion. Bipolar disorder. Agitated. Htn. Leukocytosis. UTI. - Plan Plan: Continuation of care. Monitor Vitals and Labs. Continue present meds as directed. Monitor Diet/Nutritional support. Psych management per Psych. Pain Management. Supportive care. Fall precaution, frequent nursing rounds, and as needed restraints to prevent fall. Continue collaborating with consulting specialists, case management and nursing team. Will Monitor patient and continue present care management. Nutritional Asmnt/Malnutr-PDOC - Dietary Evaluation Malnutrition Findings (Please click <Entered> for more info): Nutritional Asmnt/Malnutrition Start: 01/06/19 14: 35 Text: Status: Complete Freq: Protocol: Document 01/06/19 14:36 [email or web address] (Rec: 01/06/19 14:50 [email or web address]) Nutritional Asmnt/Malnutrition Patient General Information Nutritional Screening Low Risk Diagnosis psychosis, UTI, leukocytosis, agitation Pertinent Medical Hx/Surgical Hx HTN, bipolar, current smoker Subjective Information [facility] seen in [facility], reports good appetite and po intake, tolerating diet without chew/swallow difficulty, NKFA however with food preferences/dislikes ( communicated to dietary staff) , no n/v/d however states UBW 165-175 lb but unable to recall last time pt was this wt. Current wt 210 lb, estimated 01/02. Current Diet Order/ Nutrition Support regular Patient / S.O Not Indicated Pertinent Medications Maalox, Theragran, PRN MOM Pertinent Labs (01/01) Na 130, Cl 95, AST 48 Nutritional Hx/Data Height 1.75 m Height (Calculated Centimeters) 175.3 Current Weight (lbs) 95.254 kg Weight (Calculated Kilograms) 95.3 Weight (Calculated Grams) 95945.4 Usual body Weight (lbs) 170 % Usual Body Weight 124 [place] Body Weight 160 lb % [place] Body Weight 131 Body Mass Index (BMI) 31.0 Weight Status Obese GI Symptoms GI Symptoms None Last BM 6/ Difficult in: None Food Allergies No Skin Integrity/Comment: John score 22, area of concern/redness per flowsheet Current %PO Good (75-100%) Estimated Nutritional Goals BEE in Kcals: Adj wt of IBW Calories/Kcals/Kg 8769-8287 Kcals Calculated 25-30 kcal/kg Protein: Adj wt of IBW Protein g/k Protein Calculated 1 g/kg Fluid: ml 0230-6745 ml Nutritional Problem 1. Problem Problem Altered nutrition related labs Etiology medical condition Signs/Symptoms: Na 130, Cl 95 Intervention/Recommendation Comments 1. continue current diet 2. Monitor PO intake, wt, labs and skin integrity 3. F/U as low risk in 7 days Expected Outcomes/Goals Expected Outcomes/Goals 1. PO intake to meet at least 75% of nutritional needs. 2. Wt stability, maintain skin integrity, labs to approach WNL Sobeida Wilhelm RD
[2019-01-11] MEDS: Multivitamin Tab PO SCH (08:00)
--- NOTE | 2019-01-11 16:43 | Progress Notes ---
DATE: 01/10/2019 PSYCHOLOGY PROGRESS NOTE SUBJECTIVE: The patient is seen and is interviewed. Case is discussed with the staff. The patient continues to present as guarded and easily irritated. The patient had questions about finances with respect to social security payments, etc. This is deferred to case management and hospice social worker. The patient is stating that he does not want to be on the medication and that it makes him feel fatigued and sleepy. OBJECTIVE: Mood is irritable. Affect is constricted. Thought process shows to be linear, but concrete and the patient is also experiencing continued suspiciousness and paranoid ideation. The patient denied any hallucinations. The patient has been resisting placement and also intermittently refusing medications. ASSESSMENT AND PLAN: The patient's impulsivity and paranoia persist. We provided remotivation for the patient to become compliant to stay compliant with his care and treatment. We provided motivational enhancement for the patient to accept placement. We provided coping strategies for phase of life issues. The patient was demanding to be discharged back to where the Police Department had found him. We provided reality integration and discussed with the patient the reasons that the hospital is unable to discharge him to the street concerning his safety and the legal issues involved. The patient continued to have difficulty comprehending this. We will follow up in 2 days to continue the present treatment if the patient remains on the unit. [facility]# [id number] RIKA
--- NOTE | 2019-01-11 16:43 | Progress Notes ---
DATE: 01/10/2019 PSYCHIATRIC PROGRESS NOTE SUBJECTIVE: Staff was spoken to. The patient is interviewed. Mood is noted to be irritable. Affect is constricted. Insight and judgment are noted to be still impaired. Impulse control is noted to be limited. The patient has been testing the limits. The patient is very irritable and angry at this time. No side effects to the medications are noted. The patient is currently on 100 mg of the Seroquel and plan to increase this one to 150 mg today in view of the paranoia and into his illness and aggressive behavior. ASSESSMENT: The patient is still psychotic and impulsive. PLAN: To continue the patient with the current medications. I encouraged the patient to verbalize the concerns rather than to act out. [facility]# [id number]
--- NOTE | 2019-01-11 16:44 | Progress Notes ---
DATE: 01/11/2019 SUBJECTIVE: Staff was spoken to. The patient is interviewed. Mood is noted to be irritable. Affect is constricted. The patient is very disheveled at this time. Paranoid delusions are noted, but denies any command hallucinations. The patient is currently on Seroquel and has been able to tolerate the medication. The patient's sleep is noted to be improving. Appetite is noted to be fair. The patient has no place to return to ____ trying to work with the facilities to get the patient, but so far none is available. PLAN: To closely monitor the patient and followup. JOB# [id number]
[2019-01-12] MEDS: Multivitamin Tab PO SCH (09:15)
[2019-01-12] MEDS ORDERED: Haloperidol Lactate 5 mg/mL 1mL Vial IM ONE (10:33)
[2019-01-12] MEDS ORDERED: Haloperidol Lactate 5 mg/mL 1mL Vial ONE (10:40)
--- NOTE | 2019-01-12 12:31 | Progress Notes ---
DATE: 01/11/2019 SUBJECTIVE: The patient was seen in the dining area. The patient appears to be guarded, easily gets frustrated. Otherwise, the patient appears to be in no acute distress. OBJECTIVE: VITAL SIGNS: Temperature 98, heart rate 68, blood pressure 142/78, respiration 18, 97% on room air. HEENT: Head is atraumatic, normocephalic. Eyes, bilateral conjunctivae are clear. Bilateral pupils equal, round and reactive. NECK: Supple. No JVD. CARDIOVASCULAR: S1 and S2, without murmur. PULMONARY: Clear to auscultation. GASTROINTESTINAL: Soft and nontender without guarding. Positive bowel sounds. MUSCULOSKELETAL: No clubbing. No cyanosis. ASSESSMENT: 1. Bipolar disorder. 2. Hypertension. 3. Osteoarthritis. PLAN: We will keep the patient to Inpatient Psychiatric Unit. We will follow up with a psychiatrist to monitor the patient's condition and behavior. Treatment plans were discussed with the patient's nurse. Treatment plans were discussed with Dr. Bell. JOB# [id number]
--- NOTE | 2019-01-12 15:10 | Internal Medicine Prog Note ---
Internal Medicine Subjective - Subjective Service Date: 01/12/19 Patient seen and examined:: chart reviewed Patient is:: awake, verbal, talking, agitated, confused Patient Complaints of:: other (requesting benzos) Per staff patient has:: no adverse event, no episodes of fall Internal Medicine Objective - Results Result Diagrams: 01/01/19 10:50 01/01/19 10:50 Recent Labs: Laboratory Last Values WBC 14.1 Th/cmm (4.8-10.8) H 01/01/19 10:50 RBC 4.55 Mil/cmm (3.80-5.80) 01/01/19 10:50 Hgb 14.2 gm/dL (12-16) 01/01/19 10:50 Hct 42.4 % (41.0-60) 01/01/19 10:50 MCV 93.4 fl (80-99) 01/01/19 10:50 MCH 31.3 pg (27.0-31.0) H 01/01/19 10:50 MCHC Differential 33.5 pg (28.0-36.0) 01/01/19 10:50 RDW 14.1 % (11.5-20.0) 01/01/19 10:50 Plt Count 371 Th/cmm (150-400) 01/01/19 10:50 MPV 7.9 fl 01/01/19 10:50 Neutrophils % 79.8 % (40.0-80.0) 01/01/19 10:50 Lymphocytes % 12.4 % (20.0-50.0) L 01/01/19 10:50 Monocytes % 7.0 % (2.0-10.0) 01/01/19 10:50 Eosinophils % 0.8 % (0.0-5.0) 01/01/19 10:50 Basophils % 0.0 % (0.0-2.0) 01/01/19 10:50 Sodium 130 mEq/L (136-145) L 01/01/19 10:50 Potassium 4.5 mEq/L (3.5-5.1) 01/01/19 10:50 Chloride 95 mEq/L (98-107) L 01/01/19 10:50 Carbon Dioxide 25.5 mEq/L (21.0-31.0) 01/01/19 10:50 Anion Gap 14.0 (7.0-16.0) 01/01/19 10:50 BUN 20 mg/dL (7-25) 01/01/19 10:50 Creatinine 0.7 mg/dL (0.7-1.3) 01/01/19 10:50 Est GFR ( Amer) > 60.0 ml/min (>90) 01/01/19 10:50 Est GFR (Non-Af Amer) > 60.0 ml/min 01/01/19 10:50 BUN/Creatinine Ratio 28.6 01/01/19 10:50 Glucose 88 mg/dL (70-105) 01/01/19 10:50 Calcium 9.6 mg/dL (8.6-10.3) 01/01/19 10:50 Total Bilirubin 0.4 mg/dL (0.3-1.0) 01/01/19 10:50 AST 48 U/L (13-39) H 01/01/19 10:50 ALT 37 U/L (7-52) 01/01/19 10:50 Alkaline Phosphatase 50 U/L (34-104) 01/01/19 10:50 Troponin I 0.01 ng/mL (0.01-0.05) 01/01/19 10:50 Total Protein 7.7 gm/dL (6.0-8.3) 01/01/19 10:50 Albumin 4.3 gm/dL (4.2-5.5) 01/01/19 10:50 Globulin 3.4 gm/dL 01/01/19 10:50 Albumin/Globulin Ratio 1.3 (1.0-1.8) 01/01/19 10:50 Triglycerides 64 mg/dL (<150) 01/01/19 10:50 Cholesterol 156 mg/dL (<200) 01/01/19 10:50 LDL Cholesterol Direct 76 mg/dL (75-193) 01/01/19 10:50 HDL Cholesterol 70 mg/dL (23-92) 01/01/19 10:50 TSH 3.15 uIU/ml (0.34-5.60) 01/01/19 10:50 Urine Source CLEAN C 01/01/19 11:28 Urine Color YELLOW 01/01/19 11:28 Urine Clarity CLEAR (CLEAR) 01/01/19 11:28 Urine pH 6.0 (4.6 - 8.0) 01/01/19 11:28 Ur Specific [place] 1.015 (1.005-1.030) 01/01/19 11:28 Urine Protein NEGATIVE mg/dL (NEGATIVE) 01/01/19 11:28 Urine Glucose (UA) NEGATIVE mg/dL (NEGATIVE) 01/01/19 11:28 Urine Ketones NEGATIVE mg/dL (NEGATIVE) 01/01/19 11:28 Urine Blood NEGATIVE (NEGATIVE) 01/01/19 11:28 Urine Nitrate NEGATIVE (NEGATIVE) 01/01/19 11:28 Urine Bilirubin NEGATIVE (NEGATIVE) 01/01/19 11:28 Urine Urobilinogen 0.2 E.U./dL (0.2 - 1.0) 01/01/19 11:28 Ur Leukocyte Esterase NEGATIVE (NEGATIVE) 01/01/19 11:28 Urine RBC 0-2 /hpf (0-5) H 01/01/19 11:28 Urine WBC 0-2 /hpf (0-5) 01/01/19 11:28 Ur Epithelial Cells NONE SEEN /lpf (FEW) 01/01/19 11:28 Urine Bacteria FEW /hpf (NONE SEEN) 01/01/19 11:28 Salicylates < 25.0 mg/L (30.0-100.0) L 01/01/19 10:50 Urine Opiates Screen NEGATIVE (NEGATIVE) 01/01/19 11:28 Urine Methadone Screen NEGATIVE (NEGATIVE) 01/01/19 11:28 Acetaminophen < 10.0 ug/mL (10.0-30.0) L 01/01/19 10:50 Ur Barbiturates Screen NEGATIVE (NEGATIVE) 01/01/19 11:28 Ur Tricyclics Screen NEGATIVE (NEGATIVE) 01/01/19 11:28 Ur Phencyclidine Scrn NEGATIVE (NEGATIVE) 01/01/19 11:28 Amphetamines Screen NEGATIVE (NEGATIVE) 01/01/19 11:28 U Methamphetamines Scrn NEGATIVE (NEGATIVE) 01/01/19 11:28 U Benzodiazepines Scrn NEGATIVE (NEGATIVE) 01/01/19 11:28 U Cocaine Metab Screen NEGATIVE (NEGATIVE) 01/01/19 11:28 U Cannabinoids Screen NEGATIVE (NEGATIVE) 01/01/19 11:28 Ethyl Alcohol < 10 mg/dL (0-10) 01/01/19 10:50 RPR NONREACTIVE (NONREACTIVE) 01/01/19 10:50 - Physical Exam Vitals and I&O: Vital Signs Temp 98.4 F 01/12/19 14:00 Pulse 84 01/12/19 14:00 Resp 20 01/12/19 14:00 BP 142/92 01/12/19 14:00 Pulse Ox 96 01/12/19 14:00 Intake & Output 01/11/19 01/12/19 01/12/19 18:59 06:59 18:59 Intake Total 1000 720 Balance 1000 720 Intake: Oral 1000 720 Other: # Voids 4 2 # Bowel Movements 1 Active Medications: Current Medications Acetaminophen (Tylenol) 650 mg PO Q4HR PRN PRN Reason: Mild Pain / Temp above 100 Stop: 03/02/19 19:53 Last Admin: 01/12/19 02:15 Dose: 650 mg Al Hydrox/Mg Hydrox/Simethicone (Maalox) 30 ml PO Q4HR PRN PRN Reason: GI DISTRESS Stop: 03/02/19 19:53 Last Admin: 01/02/19 06:02 Dose: 30 ml Divalproex Sodium (Depakote Dr) 500 mg PO BID JENISE; Protocol Stop: 03/09/19 08:59 Last Admin: 01/12/19 09:15 Dose: 500 mg Lorazepam (Ativan) 0.5 mg PO Q4HR PRN; Protocol PRN Reason: Agitation Stop: 01/31/19 19:53 Last Admin: 01/12/19 09:15 Dose: 0.5 mg Magnesium Hydroxide (Milk Of Magnesia) 30 ml PO HS PRN PRN Reason: Constipation Multivitamins/Vitamin C (Theragran) 1 tab PO DAILY JENISE Stop: 03/03/19 08:59 Last Admin: 01/12/19 09:15 Dose: 1 tab Quetiapine Fumarate (Seroquel) 100 mg PO BID JENISE; Protocol Stop: 03/13/19 16:59 Zolpidem Tartrate (Ambien) 5 mg PO HS PRN PRN Reason: Insomnia Stop: 03/02/19 19:53 Last Admin: 01/11/19 20:51 Dose: 5 mg General: NAD, other (Agitated and irritated.) HEENT: NC/AT Neck: Supple Lungs: other (no acute respiratory distress) Cardiovascular: RRR Abdomen: soft, non-tender Extremities: clear Neurological: no change Internal Medicine Assmt/Plan - Assessment Assessment: Bipolar HTN OA - Plan Plan: Continue to keep in Inpatient Psychiatric Unit. Continue to f/u with psych recs, pt's condition and behavior. Continue current treatments. Continue collaboration with consulting specialist, nursing team and interdisciplinary team. Fall Precaution. Nutritional Asmnt/Malnutr-PDOC - Dietary Evaluation Malnutrition Findings (Please click <Entered> for more info): Nutritional Asmnt/Malnutrition Start: 01/06/19 14: 35 Text: Status: Complete Freq: Protocol: Document 01/06/19 14:36 [email or web address] (Rec: 01/06/19 14:50 [email or web address]) Nutritional Asmnt/Malnutrition Patient General Information Nutritional Screening Low Risk Diagnosis psychosis, UTI, leukocytosis, agitation Pertinent Medical Hx/Surgical Hx HTN, bipolar, current smoker Subjective Information [facility] in [facility], reports good appetite and po intake, tolerating diet without chew/swallow difficulty, NKFA however with food preferences/dislikes ( communicated to dietary staff) , no n/v/d however states UBW 165-175 lb but unable to recall last time pt was this wt. Current wt 210 lb, estimated 01/02. Current Diet Order/ Nutrition Support regular Patient / S.O Not Indicated Pertinent Medications Maalox, Theragran, PRN MOM Pertinent Labs (01/01) Na 130, Cl 95, AST 48 Nutritional Hx/Data Height 5 ft 9 in Height (Calculated Centimeters) 175.3 Current Weight (lbs) 210 lb Weight (Calculated Kilograms) 95.3 Weight (Calculated Grams) 94456.4 Usual body Weight (lbs) 170 % Usual Body Weight 124 [place] Body Weight 160 lb % [place] Body Weight 131 Body Mass Index (BMI) 31.0 Weight Status Obese GI Symptoms GI Symptoms None Last BM 6/3 Difficult in: None Food Allergies No Skin Integrity/Comment: John score 22, area of concern/redness per flowsheet Current %PO Good (75-100%) Estimated Nutritional Goals BEE in Kcals: Adj wt of IBW Calories/Kcals/Kg 3495-9688 Kcals Calculated 25-30 kcal/kg Protein: Adj wt of IBW Protein g/k Protein Calculated 1 g/kg Fluid: ml 2404-6706 ml Nutritional Problem 1. Problem Problem Altered nutrition related labs Etiology medical condition Signs/Symptoms: Na 130, Cl 95 Intervention/Recommendation Comments 1. continue current diet 2. Monitor PO intake, wt, labs and skin integrity 3. F/U as low risk in 7 days Expected Outcomes/Goals Expected Outcomes/Goals 1. PO intake to meet at least 75% of nutritional needs. 2. Wt stability, maintain skin integrity, labs to approach WNL Sobeida Wilhelm RD
--- NOTE | 2019-01-12 22:24 | Progress Notes ---
DATE: 01/12/2019 SUBJECTIVE: Staff was spoken to. The patient is interviewed. Mood is noted to be irritable. Affect is constricted. Insight and judgment are noted to be still impaired. Impulse control is noted to be limited. Coping skills are noted to be limited. The patient is reporting that he needs to go to ____ and he cannot be in here. The patient has no funding and watch caser has been trying to help with the placement of this patient. ASSESSMENT AND PLAN: The patient is still psychotic and impulsive and the patient has to be given emergency dose of medications today. The patient is going to be followed up with the supportive therapy. JOB# [id number]
[2019-01-13] MEDS: Hydrocodone/APAP 10 mg/325 mg Tab PO PRN ×2 (05:53→14:49)
[2019-01-13] MEDS: Multivitamin Tab PO SCH (09:26)
--- NOTE | 2019-01-13 21:40 | Progress Notes ---
DATE: 01/13/2019 PSYCHOLOGY PROGRESS NOTE SUBJECTIVE: The patient is seen and is interviewed. Case is discussed with staff. The patient continues to present as guarded and easily irritated. Staff reports the patient's impulse control is limited and has not improved. The patient continued to perseverate on being discharged and stating that he needs to go back to where he came from. The patient is verbally refusing to accept placement. OBJECTIVE: Mood is irritable. Affect is constricted. Thought process shows to be confused. The patient denied any hallucinations or delusions; however, there is evidence of some paranoid ideation. The patient continues to be argumentative and reluctant to accept placement versus homelessness. ASSESSMENT AND PLAN: Again, we have discussed with the patient the reasons for placement, i.e., safety and the legal and ethical guidelines that are pertinent to that decision. The patient continues to have explosive episodes. Staff reports the patient was given an emergency dose of medications yesterday. We will continue to provide limit setting as well as remotivation for the patient to become compliant and stay compliant with all aspects of his care and treatment and to accept placement. We will provide coping strategies for phase of life issues. We will provide reality integration and continue to encourage the patient to follow through with the long-term treatment plan. We will follow up in 2 days if the patient is still admitted on the unit to continue the present treatment. JOB# [id number] RIKA
--- NOTE | 2019-01-14 03:19 | Progress Notes ---
DATE: 01/13/2019 PSYCHIATRIC PROGRESS NOTE SUBJECTIVE: Staff was spoken to. The patient is interviewed. Mood is noted to be less irritable. Affect is appropriate. Not suicidal or homicidal. Insight and judgment are noted to be improving. Impulse control is noted to be fair today. The patient has been asking for more and more of the Klonopin. The patient is currently on 100 mg twice a day of the Seroquel along with the 500 mg twice a day of the Depakote. The patient has been able to tolerate. ASSESSMENT: The patient is stabilizing. PLAN: To continue the patient with the supportive therapy, encouraged the patient to verbalize the concerns rather than to act out. JOB# [id number]
[2019-01-14] MEDS: Multivitamin Tab PO SCH (08:37)
--- NOTE | 2019-01-14 14:42 | Internal Medicine Prog Note ---
Internal Medicine Subjective - Subjective Service Date: 01/14/19 Patient seen and examined:: with staff Patient is:: awake, verbal, talking, agitated, confused Patient Complaints of:: other (less irritable today.) Per staff patient has:: no adverse event, no episodes of fall Internal Medicine Objective - Results Result Diagrams: 01/01/19 10:50 01/01/19 10:50 Recent Labs: Laboratory Last Values WBC 14.1 Th/cmm (4.8-10.8) H 01/01/19 10:50 RBC 4.55 Mil/cmm (3.80-5.80) 01/01/19 10:50 Hgb 14.2 gm/dL (12-16) 01/01/19 10:50 Hct 42.4 % (41.0-60) 01/01/19 10:50 MCV 93.4 fl (80-99) 01/01/19 10:50 MCH 31.3 pg (27.0-31.0) H 01/01/19 10:50 MCHC Differential 33.5 pg (28.0-36.0) 01/01/19 10:50 RDW 14.1 % (11.5-20.0) 01/01/19 10:50 Plt Count 371 Th/cmm (150-400) 01/01/19 10:50 MPV 7.9 fl 01/01/19 10:50 Neutrophils % 79.8 % (40.0-80.0) 01/01/19 10:50 Lymphocytes % 12.4 % (20.0-50.0) L 01/01/19 10:50 Monocytes % 7.0 % (2.0-10.0) 01/01/19 10:50 Eosinophils % 0.8 % (0.0-5.0) 01/01/19 10:50 Basophils % 0.0 % (0.0-2.0) 01/01/19 10:50 Sodium 130 mEq/L (136-145) L 01/01/19 10:50 Potassium 4.5 mEq/L (3.5-5.1) 01/01/19 10:50 Chloride 95 mEq/L (98-107) L 01/01/19 10:50 Carbon Dioxide 25.5 mEq/L (21.0-31.0) 01/01/19 10:50 Anion Gap 14.0 (7.0-16.0) 01/01/19 10:50 BUN 20 mg/dL (7-25) 01/01/19 10:50 Creatinine 0.7 mg/dL (0.7-1.3) 01/01/19 10:50 Est GFR ( Amer) > 60.0 ml/min (>90) 01/01/19 10:50 Est GFR (Non-Af Amer) > 60.0 ml/min 01/01/19 10:50 BUN/Creatinine Ratio 28.6 01/01/19 10:50 Glucose 88 mg/dL (70-105) 01/01/19 10:50 Calcium 9.6 mg/dL (8.6-10.3) 01/01/19 10:50 Total Bilirubin 0.4 mg/dL (0.3-1.0) 01/01/19 10:50 AST 48 U/L (13-39) H 01/01/19 10:50 ALT 37 U/L (7-52) 01/01/19 10:50 Alkaline Phosphatase 50 U/L (34-104) 01/01/19 10:50 Troponin I 0.01 ng/mL (0.01-0.05) 01/01/19 10:50 Total Protein 7.7 gm/dL (6.0-8.3) 01/01/19 10:50 Albumin 4.3 gm/dL (4.2-5.5) 01/01/19 10:50 Globulin 3.4 gm/dL 01/01/19 10:50 Albumin/Globulin Ratio 1.3 (1.0-1.8) 01/01/19 10:50 Triglycerides 64 mg/dL (<150) 01/01/19 10:50 Cholesterol 156 mg/dL (<200) 01/01/19 10:50 LDL Cholesterol Direct 76 mg/dL (75-193) 01/01/19 10:50 HDL Cholesterol 70 mg/dL (23-92) 01/01/19 10:50 TSH 3.15 uIU/ml (0.34-5.60) 01/01/19 10:50 Urine Source CLEAN C 01/01/19 11:28 Urine Color YELLOW 01/01/19 11:28 Urine Clarity CLEAR (CLEAR) 01/01/19 11:28 Urine pH 6.0 (4.6 - 8.0) 01/01/19 11:28 Ur Specific [place] 1.015 (1.005-1.030) 01/01/19 11:28 Urine Protein NEGATIVE mg/dL (NEGATIVE) 01/01/19 11:28 Urine Glucose (UA) NEGATIVE mg/dL (NEGATIVE) 01/01/19 11:28 Urine Ketones NEGATIVE mg/dL (NEGATIVE) 01/01/19 11:28 Urine Blood NEGATIVE (NEGATIVE) 01/01/19 11:28 Urine Nitrate NEGATIVE (NEGATIVE) 01/01/19 11:28 Urine Bilirubin NEGATIVE (NEGATIVE) 01/01/19 11:28 Urine Urobilinogen 0.2 E.U./dL (0.2 - 1.0) 01/01/19 11:28 Ur Leukocyte Esterase NEGATIVE (NEGATIVE) 01/01/19 11:28 Urine RBC 0-2 /hpf (0-5) H 01/01/19 11:28 Urine WBC 0-2 /hpf (0-5) 01/01/19 11:28 Ur Epithelial Cells NONE SEEN /lpf (FEW) 01/01/19 11:28 Urine Bacteria FEW /hpf (NONE SEEN) 01/01/19 11:28 Salicylates < 25.0 mg/L (30.0-100.0) L 01/01/19 10:50 Urine Opiates Screen NEGATIVE (NEGATIVE) 01/01/19 11:28 Urine Methadone Screen NEGATIVE (NEGATIVE) 01/01/19 11:28 Acetaminophen < 10.0 ug/mL (10.0-30.0) L 01/01/19 10:50 Ur Barbiturates Screen NEGATIVE (NEGATIVE) 01/01/19 11:28 Ur Tricyclics Screen NEGATIVE (NEGATIVE) 01/01/19 11:28 Ur Phencyclidine Scrn NEGATIVE (NEGATIVE) 01/01/19 11:28 Amphetamines Screen NEGATIVE (NEGATIVE) 01/01/19 11:28 U Methamphetamines Scrn NEGATIVE (NEGATIVE) 01/01/19 11:28 U Benzodiazepines Scrn NEGATIVE (NEGATIVE) 01/01/19 11:28 U Cocaine Metab Screen NEGATIVE (NEGATIVE) 01/01/19 11:28 U Cannabinoids Screen NEGATIVE (NEGATIVE) 01/01/19 11:28 Ethyl Alcohol < 10 mg/dL (0-10) 01/01/19 10:50 RPR NONREACTIVE (NONREACTIVE) 01/01/19 10:50 - Physical Exam Vitals and I&O: Vital Signs Temp 97.9 F 01/14/19 14:03 Pulse 91 01/14/19 14:03 Resp 20 01/14/19 14:03 BP 142/96 01/14/19 14:03 Pulse Ox 97 01/14/19 14:03 Intake & Output 01/13/19 01/14/19 01/14/19 18:59 06:59 18:59 Intake Total 2400 720 Balance 2400 720 Intake: Oral 2400 720 Other: # Voids 5 1 # Bowel Movements 1 Active Medications: Current Medications Acetaminophen (Tylenol) 650 mg PO Q4HR PRN PRN Reason: Mild Pain / Temp above 100 Stop: 03/02/19 19:53 Last Admin: 01/14/19 11:31 Dose: 650 mg Acetaminophen/Hydrocodone Bitart ([place] 10 Mg/325 Mg) 1 tab PO Q6H PRN PRN Reason: Pain (Severe) Stop: 03/14/19 05:11 Last Admin: 01/13/19 14:49 Dose: 1 tab Al Hydrox/Mg Hydrox/Simethicone (Maalox) 30 ml PO Q4HR PRN PRN Reason: GI DISTRESS Stop: 03/02/19 19:53 Last Admin: 01/02/19 06:02 Dose: 30 ml Divalproex Sodium (Depakote Dr) 500 mg PO BID JENISE; Protocol Stop: 03/09/19 08:59 Last Admin: 01/14/19 08:37 Dose: 500 mg Lorazepam (Ativan) 0.5 mg PO Q4HR PRN; Protocol PRN Reason: Agitation Stop: 01/31/19 19:53 Last Admin: 01/14/19 09:52 Dose: 0.5 mg Magnesium Hydroxide (Milk Of Magnesia) 30 ml PO HS PRN PRN Reason: Constipation Multivitamins/Vitamin C (Theragran) 1 tab PO DAILY JENISE Stop: 03/03/19 08:59 Last Admin: 01/14/19 08:37 Dose: 1 tab Quetiapine Fumarate (Seroquel) 100 mg PO BID JENISE; Protocol Stop: 03/13/19 16:59 Last Admin: 01/14/19 08:37 Dose: 100 mg Zolpidem Tartrate (Ambien) 5 mg PO HS PRN PRN Reason: Insomnia Stop: 03/02/19 19:53 Last Admin: 01/13/19 23:27 Dose: 5 mg Physical Exam: 63 y/o male patient was admitted due to Agitation, Patient is confused but is less irritable today. We will continue to monitor and treat patient. General: NAD, other (Agitated and irritated.) HEENT: NC/AT Neck: Supple Lungs: other (no acute respiratory distress) Cardiovascular: RRR Abdomen: soft, non-tender Extremities: clear Neurological: no change Internal Medicine Assmt/Plan - Assessment Assessment: Episodes of confusion. Bipolar disorder. Agitated. Htn. Leukocytosis. UTI. - Plan Plan: Continuation of care. Monitor Vitals and Labs. Continue present meds as directed. Monitor Diet/Nutritional support. Psych management per Psych. Pain Management. Supportive care. Fall precaution, frequent nursing rounds, and as needed restraints to prevent fall. Continue collaborating with consulting specialists, case management and nursing team. Will Monitor patient and continue present care management. Nutritional Asmnt/Malnutr-PDOC - Dietary Evaluation Malnutrition Findings (Please click <Entered> for more info): Nutritional Asmnt/Malnutrition Start: 01/06/19 14: 35 Text: Status: Complete Freq: Protocol: Document 01/06/19 14:36 [email or web address] (Rec: 01/06/19 14:50 [id number]) Nutritional Asmnt/Malnutrition Patient General Information Nutritional Screening Low Risk Diagnosis psychosis, UTI, leukocytosis, agitation Pertinent Medical Hx/Surgical Hx HTN, bipolar, current smoker Subjective Information [facility] seen in community [facility], reports good appetite and po intake, tolerating diet without chew/swallow difficulty, NKFA however with food preferences/dislikes ( communicated to dietary staff) , no n/v/d however states UBW 165-175 lb but unable to recall last time pt was this wt. Current wt 210 lb, estimated 01/02. Current Diet Order/ Nutrition Support regular Patient / S.O Not Indicated Pertinent Medications Maalox, Theragran, PRN MOM Pertinent Labs (01/01) Na 130, Cl 95, AST 48 Nutritional Hx/Data Height 1.75 m Height (Calculated Centimeters) 175.3 Current Weight (lbs) 95.254 kg Weight (Calculated Kilograms) 95.3 Weight (Calculated Grams) 11196.4 Usual body Weight (lbs) 170 % Usual Body Weight 124 [place] Body Weight 160 lb % [place] Body Weight 131 Body Mass Index (BMI) 31.0 Weight Status Obese GI Symptoms GI Symptoms None Last BM 6/3 Difficult in: None Food Allergies No Skin Integrity/Comment: John score 22, area of concern/redness per flowsheet Current %PO Good (75-100%) Estimated Nutritional Goals BEE in Kcals: Adj wt of IBW Calories/Kcals/Kg 2406-1336 Kcals Calculated 25-30 kcal/kg Protein: Adj wt of IBW Protein g/k Protein Calculated 1 g/kg Fluid: ml 9207-0664 ml Nutritional Problem 1. Problem Problem Altered nutrition related labs Etiology medical condition Signs/Symptoms: Na 130, Cl 95 Intervention/Recommendation Comments 1. continue current diet 2. Monitor PO intake, wt, labs and skin integrity 3. F/U as low risk in 7 days Expected Outcomes/Goals Expected Outcomes/Goals 1. PO intake to meet at least 75% of nutritional needs. 2. Wt stability, maintain skin integrity, labs to approach WNL Sobeida Wilhelm RD
--- NOTE | 2019-01-14 23:28 | Progress Notes ---
DATE: 01/14/2019 PSYCHIATRIC PROGRESS NOTE SUBJECTIVE: Staff was spoken to. The patient is interviewed. Mood is noted to be anxious. Affect is appropriate. The patient is not suicidal or homicidal. Insight and judgment are noted to be improving. Impulse control seems to be fair. No side effects to the medications are noted. ASSESSMENT: The patient is stabilizing. PLAN: To discharge the patient for follow up on an outpatient basis. [facility]# [id number]
== END 2019-01-14 15:45 | disposition home or self-care (01) | DRG 885 ==
LOC: ER 10:26 → GERO 15:28
PROVIDERS: ADMIT Psychiatry & Neurology Psychiatry; ATTEND Psychiatry & Neurology Psychiatry
DX: F31.9 Bipolar disorder, unspecified (principal); N39.0 Urinary tract infection, site not specified; F29 Unspecified psychosis not due to a substance or known physiological condition; I10 Essential (primary) hypertension; F17.210 Nicotine dependence, cigarettes, uncomplicated; F41.9 Anxiety disorder, unspecified; M19.90 Unspecified osteoarthritis, unspecified site; Z59.0 Homelessness
CPT/HCPCS: 36415-UA; 80053-TC; 80061-TC; 80307; 80320-TC; 80329-TC; 81001-TC; 83036-90; 84443-TC; 84484-TC; 85025-TC; 86592-TC; 90899; 93005; G0410; J1200; J1630; J2060; Z7610

== ENCOUNTER 2019-03-02 22:10 | Inpatient (IN) | payer MEDICARE, BC ==
--- NOTE | 2019-03-02 22:17 | ED Physician Chart ---
ED Chief Complaint/HPI - Patient Information Date Seen:: 03/02/19 Time Seen:: 22:14 Chief Complaint:: psych History of Present Illness:: 63 yr old male with psych issues on hold here for evaluation Allergies:: Allergies Allergy/AdvReac Type Severity Reaction Status Date / Time No Known Allergies Allergy Verified 01/01/19 10:42 ED Review of Systems - Review of Systems General/Constitutional: No fever, No chills, No weight loss, No weakness, No diaphoresis, No edema, No loss of appetite Skin: No skin lesions, No rash, No bruising Head: No headache, No light-headedness Eyes: No loss of vision, No pain, No diplopia ENT: No earache, No nasal drainage, No sore throat, No tinnitus Neck: No neck pain, No swelling, No thyromegaly, No stiffness, No mass noted Cardio Vascular: No chest pain, No palpitations, No PND, No orthopnea, No edema Pulmonary: No SOB, No cough, No sputum, No wheezing GI: No nausea, No vomiting, No diarrhea, No pain, No melena, No hematochezia, No constipation, No hematemesis G/U: No dysuria, No frequency, No hematuria Musculoskeletal: No bone or joint pain, No back pain, No muscle pain Endocrine: No polyuria, No polydipsia Psychiatric: Prior psych history Hematopoietic: No bruising, No lymphadenopathy Allergic/Immuno: No urticaria, No angioedema Neurological: No syncope, No focal symptoms, No weakness, No paresthesia, No headache, No seizure, No dizziness, No confusion, No vertigo ED Past Medical History - Past Medical History Past Medical History: Other (psychosis) ED Physical Exam - Physical Examination General/Constitutional: Awake, Well-developed, well-nourished, Alert, GCS 15, Non-toxic appearing, Ambulatory Other Gen/Cons comments:: pt agitated Head: Atraumatic Eyes: Lids, conjuctiva normal, PERRL, EOMI Skin: Nl inspection, No rash, No skin lesions, No ecchymosis, Well hydrated, No lymphadenopathy ENMT: External ears, nose nl, Nasal exam nl, Lips, teeth, gums nl Neck: Nontender, Full ROM w/o pain, No JVD, No nuchal rigidity, No bruit, No mass, No stridor Respiratory: Nl effort/Exclusion, Clear to Auscultation, No Wheeze/Rhonchi/Rales Cardio Vascular: RRR, No murmur, gallop, rubs, NL S1 S2 GI: No tenderness/rebounding/guarding, No organomegaly, No hernia, Normal BS's, Nondistended, No mass/bruits, No McBurney tenderness : No CVA tenderness Extremities: No tenderness or effusion, Full ROM, normal strength in all extremities, No edema, Normal digits & nails Neuro/Psych: Alert/oriented, DTR's symmetric, Normal sensory exam, Normal motor strength, Judgement/insight normal, Mood normal, Normal gait, No focal deficits Misc: Normal back, No paraspinal tenderness ED Assessment - Assessment General Assessment: agitation psychosis psych hold ED Septic Shock - . Is Septic Shock (SBP<90, OR Lactate>4 mmol\L) present?: No ED Reassessment (Disposition) - Reassessment Reassessment:: psychosis agitation - Diagnosis Diagnosis:: as abpve - Aftercare/Follow up Instructions Aftercare/Follow-Up Instructions:: Counseled pt regarding lab results/diagnosis & need follow up - Patient Disposition Condition at Disposition:: Stable
[2019-03-02 22:36] LABS: % EOSINOPHILS 0.8 % (0.0-5.0); % LYMPHOCYTES 11.9 % (20.0-50.0); % MONOCYTES 6.6 % (2.0-10.0); % NEUTROPHILS 80.7 % (40.0-80.0); EOSINOPHILE ABSOLUTE 0.1 Th/cmm (0.1-0.4); HEMATOCRIT 47.5 % (41.0-60); HEMOGLOBIN 15.8 gm/dL (12-16); MEAN CELL VOLUME 92.6 fl (80-99); MEAN CORPUSCULAR HEMOGLOBIN 30.9 pg (27.0-31.0); MEAN CORPUSCULAR HGB CONC 33.3 pg (28.0-36.0); MONOCYTE ABSOLUTE 1.1 Th/cmm (0.3-1.0); NEUTROPHILE ABSOLUTE 13.9 Th/cmm (1.8-8.0); PLATELET COUNT 308 Th/cmm (150-400); RED BLOOD COUNT 5.13 Mil/cmm (3.80-5.80); RED CELL DISTRIBUTION WIDTH 14.9 % (11.5-20.0)
[2019-03-02 22:59] LABS: WHITE BLOOD COUNT 17.1 Th/cmm (4.8-10.8)
[2019-03-03 00:49] LABS: ANION GAP 14.2 (7.0-16.0); BUN - UREA NITROGEN 22 mg/dL (7-25); CALCIUM SERUM 10.5 mg/dL (8.6-10.3); CARBON DIOXIDE 26.6 mEq/L (21.0-31.0); CHLORIDE 103 mEq/L (98-107); CREATININE - SERUM 1.1 mg/dL (0.7-1.3); GFR AFRICAN-AMERICAN > 60.0 ml/min (>90); GFR NON AFRICAN-AMERICAN > 60.0 ml/min; GLUCOSE 110 mg/dL (70-105); POTASSIUM SERUM 4.8 mEq/L (3.5-5.1); SODIUM SERUM 139 mEq/L (136-145)
[2019-03-03 03:05] LABS: URINE SOURCE CLEAN C
[2019-03-03 03:20] LABS: URINE BILIRUBIN NEGATIVE (NEGATIVE); URINE BLOOD TRACE (NEGATIVE); URINE GLUCOSE (UA) NEGATIVE (NEGATIVE); URINE KETONE NEGATIVE (NEGATIVE); URINE LEUKOCYTE ESTERASE NEGATIVE (NEGATIVE); URINE MICROSCOPIC INDICATED? YES; URINE NITRATE NEGATIVE (NEGATIVE); URINE PROTEIN TRACE mg/dL (NEGATIVE); URINE UROBILINOGEN 0.2 E.U./dL (0.2 - 1.0)
[2019-03-03 03:26] LABS: URINE COLOR YELLOW
[2019-03-03 03:35] LABS: URINE BACTERIA FEW /hpf (NONE SEEN); URINE EPITHELIAL CELLS RARE /lpf (FEW)
[2019-03-03 03:36] LABS: URINE CLARITY SLIGHT HAZY (CLEAR)
[2019-03-03 03:39] LABS: AMPHETAMINE URINE POSITIVE (NEGATIVE); BARBITURATES URINE NEGATIVE (NEGATIVE); BENZODIAZEPINES QUAL URINE NEGATIVE (NEGATIVE); CANNABINOID THC NEGATIVE (NEGATIVE); COCAINE METABOLITE QUAL URINE NEGATIVE (NEGATIVE); METHADONE URINE NEGATIVE (NEGATIVE); METHAMPHETAMINES QUAL URINE NEGATIVE (NEGATIVE); OPIATES (MORPHINE) QUAL. URINE NEGATIVE (NEGATIVE); PHENCYCLIDINE (PCP) URINE NEGATIVE (NEGATIVE); TRICYCLICS (TCA) QUAL. URINE NEGATIVE (NEGATIVE)
--- NOTE | 2019-03-03 08:23 | Diagnostic Imaging Report ---
Exam: Ultrasound examination of scrotum. HISTORY: Pain Prior exam: None Findings: Real-time ultrasound examination of scrotum performed planes. The study is limited. The study demonstrates normal echogenicity testis bilaterally with normal vascular flow. Right testicle measures 4.1 x 2.3 x 4 submitted diameter left testicle measures 4.1 x 2.1 x 3.1cm in diameter. The AP mild normal. The epididymides are normal. Small varicocele left side. 8.8 cm mass is noted. The testis question of a hernia clinical correlation recommended. Multiple lymph nodes are noted in the pelvic region largest one measuring 3.[address] examination abdomen recommended. IMPRESSION: Limited examination. Heterogeneous mass inferior to the testis in the scrotal sac might represent bowel herniation neoplastic component cannot be excluded CT examination is recommended. Enlarged lymph nodes in lower pelvic area largest one measuring 3.4 cm. Clinical correlation is recommended.
--- NOTE | 2019-03-03 22:05 | Consultation ---
DATE OF CONSULTATION: 03/03/2019 IDENTIFYING INFORMATION: The patient is a 63-year-old male. REASON FOR CONSULTATION: I was asked to see this patient, who was admitted on a hold for danger to others. HISTORY OF PRESENT ILLNESS: The police was dispatched ____ threatening customers at a restaurant to blow them up and to take data security analyst's gun. He was agitated, yelling and screaming, mumbling to himself. When I tried to talk to him, he was very agitated. He was talking while food was in his mouth and food is coming all over his body. He was unable to tell me the date. He knew he was at [facility]. He reports that he does not have no love, no sex nothing for a long time and that he needs either Ativan, Xanax or Triavil. Unable to tell me why he is here, unable to tell me if he is hallucinating or not. He was mumbling to himself. PAST PSYCHIATRIC HISTORY: The patient reports he has multiple overdoses, also history of shooting himself, but could not get any more details. He was extremely agitated. MEDICAL HISTORY: Deferred to the medical doctor. SUBSTANCE ABUSE HISTORY: Unable to give information; however, from what he is talking seems like he may be having history of addiction. FAMILY AND SOCIAL HISTORY: The patient is single, never , no children. He is unable to give more information. MENTAL STATUS EXAMINATION: The patient was very agitated, unable to make safe plan for self-care. He was yelling, screaming, mumbling to himself, talking with his mouth full of food and food is coming all over. He said he need Xanax, Ativan and Triavil. He has no love, no sex, no emotions and unable to participate fully in conversation. He was agitated, threatened to harm people in a restaurant and wanted to take the data security analyst's gun, mumbling to himself, yelling and screaming. Unable to do a formal mental status exam on him because of severe agitation. His insight and judgment is impaired. Obviously, he is dangerous to himself and others. IMPRESSION: Psychosis, not otherwise specified. Deferred to the medical doctor. PLAN: I would recommend the patient needs to be given something to sedate him and I advised the staff to give him some Haldol with Ativan and Benadryl. The patient needs to continue on the hold and go to a psychiatric facility and meanwhile to watch him on 1:1. Thank you very much for allowing me to participate in the care of this most interesting gentleman. JOB# [id number]
[2019-03-04] MEDS ORDERED: Acetaminophen 500 MG TAB PO ONE (05:53)
[2019-03-04] MEDS ORDERED: Acetaminophen 500 MG TAB ONE (05:55)
--- NOTE | 2019-03-04 07:18 | ED Physician Chart ---
ED Chief Complaint/HPI - Patient Information Allergies:: Allergies Allergy/AdvReac Type Severity Reaction Status Date / Time No Known Allergies Allergy Verified 01/01/19 10:42 Vitals:: Vital Signs - 8 hr 03/03/19 03/04/19 03/04/19 23:52 03:51 03:58 Temp 97.5 F 98 F HR 74 80 79 RR 22 19 21 BP 153/90 170/91 150/98 O2 Sat % 100 98 99 Family Medical History - Family Member Mother History Unknown: Yes ED Labs/Radiology/EKG Results - Lab Results Results: Laboratory Tests 03/02/19 03/02/19 03/02/19 22:20 22:20 22:20 WBC 17.1 H RBC 5.13 Hgb 15.8 Hct 47.5 MCV 92.6 MCH 30.9 MCHC Differential 33.3 RDW 14.9 Plt Count 308 MPV 8.5 Neutrophils % 80.7 H Lymphocytes % 11.9 L Monocytes % 6.6 Eosinophils % 0.8 Basophils % 0.0 Sodium 139 Potassium 4.8 Chloride 103 Carbon Dioxide 26.6 Anion Gap 14.2 BUN 22 Creatinine 1.1 Est GFR ( Amer) > 60.0 Est GFR (Non-Af Amer) > 60.0 BUN/Creatinine Ratio 20.0 Glucose 110 H POC Glucose Whole Bld Lactic Acid 1.04 Calcium 10.5 H Urine Source Urine Color Urine Clarity Urine pH Ur Specific [place] Urine Protein Urine Glucose (UA) Urine Ketones Urine Blood Urine Nitrate Urine Bilirubin Urine Urobilinogen Ur Leukocyte Esterase Urine RBC Urine WBC Ur Epithelial Cells Urine Bacteria Urine Opiates Screen Urine Methadone Screen Ur Barbiturates Screen Ur Tricyclics Screen Ur Phencyclidine Scrn Amphetamines Screen U Methamphetamines Scrn U Benzodiazepines Scrn U Cocaine Metab Screen U Cannabinoids Screen 03/03/19 03/03/19 03/03/19 00:29 02:50 02:50 WBC RBC Hgb Hct MCV MCH MCHC Differential RDW Plt Count MPV Neutrophils % Lymphocytes % Monocytes % Eosinophils % Basophils % Sodium Potassium Chloride Carbon Dioxide Anion Gap BUN Creatinine Est GFR ( Amer) Est GFR (Non-Af Amer) BUN/Creatinine Ratio Glucose POC Glucose 107 H Whole Bld Lactic Acid Calcium Urine Source CLEAN C Urine Color YELLOW Urine Clarity SLIGHT HAZY Urine pH 6.0 Ur Specific [place] >= 1.030 Urine Protein TRACE Urine Glucose (UA) NEGATIVE Urine Ketones NEGATIVE Urine Blood TRACE Urine Nitrate NEGATIVE Urine Bilirubin NEGATIVE Urine Urobilinogen 0.2 Ur Leukocyte Esterase NEGATIVE Urine RBC 5-10 H Urine WBC 6-10 Ur Epithelial Cells RARE Urine Bacteria FEW Urine Opiates Screen NEGATIVE Urine Methadone Screen NEGATIVE Ur Barbiturates Screen NEGATIVE Ur Tricyclics Screen NEGATIVE Ur Phencyclidine Scrn NEGATIVE Amphetamines Screen POSITIVE H U Methamphetamines Scrn NEGATIVE U Benzodiazepines Scrn NEGATIVE U Cocaine Metab Screen NEGATIVE U Cannabinoids Screen NEGATIVE ED Septic Shock - . Is Septic Shock (SBP<90, OR Lactate>4 mmol\L) present?: No - <6hrs of presentation: Vital Signs: Vital Signs - 8 hr 03/03/19 03/04/19 03/04/19 23:52 03:51 03:58 Temp 97.5 F 98 F HR 74 80 79 RR 22 19 21 BP 153/90 170/91 150/98 O2 Sat % 100 98 99 ED Reassessment (Disposition) - Reassessment Reassessment:: 03/04/2019 @ 0700 Pt was medically cleared by Dr. Guzman for psych evaluation before my shift yesterday morning. Pt was evaluated by Dr. Arvizu, psychiatrist, yesterday morning. Dr. Arvizu recommended pt to be transferred to a psych facility for inpatient psychiatric care. Pt had occasional agitation/ emotional outburst that was well controlled with Ativan. Pt is now comfortable and stable, pending transfer to a psych facility. Case has been signed off to this morning shift ER physician Dr. Pires for continued care.
[2019-03-04 08:52] LABS: % BASOPHILS 3.5 % (0.0-2.0); % MONOCYTES 6.2 % (2.0-10.0); % NEUTROPHILS 73.3 % (40.0-80.0); BASOPHILE ABSOLUTE 0.4 Th/cumm (0-0.2); EOSINOPHILE ABSOLUTE 0.3 Th/cmm (0.1-0.4); HEMATOCRIT 44.2 % (41.0-60); HEMOGLOBIN 14.2 gm/dL (12-16); LYMPHOCYTE ABSOLUTE 1.4 Th/cmm (1.5-3.0); MEAN CELL VOLUME 93.6 fl (80-99); MONOCYTE ABSOLUTE 0.6 Th/cmm (0.3-1.0); NEUTROPHILE ABSOLUTE 7.6 Th/cmm (1.8-8.0); PLATELET COUNT 269 Th/cmm (150-400); RED BLOOD COUNT 4.72 Mil/cmm (3.80-5.80); RED CELL DISTRIBUTION WIDTH 14.8 % (11.5-20.0); WHITE BLOOD COUNT 10.3 Th/cmm (4.8-10.8)
[2019-03-04] MEDS ORDERED: Haloperidol Lactate 5 mg/mL 1mL Vial ONE (10:57)
[2019-03-04] MEDS ORDERED: Haloperidol Lactate 5 mg/mL 1mL Vial IM STA (10:59)
[2019-03-05] MEDS ORDERED: NITROGLYCERIN OINT 2% 1 INCH PACKET TP STA (12:27)
[2019-03-05 22:29] LABS: % BASOPHILS 3.3 % (0.0-2.0); % EOSINOPHILS 2.9 % (0.0-5.0); % LYMPHOCYTES 21.2 % (20.0-50.0); % MONOCYTES 7.6 % (2.0-10.0); BASOPHILE ABSOLUTE 0.3 Th/cumm (0-0.2); EOSINOPHILE ABSOLUTE 0.3 Th/cmm (0.1-0.4); HEMATOCRIT 41.9 % (41.0-60); HEMOGLOBIN 13.9 gm/dL (12-16); LYMPHOCYTE ABSOLUTE 1.9 Th/cmm (1.5-3.0); MEAN CELL VOLUME 91.4 fl (80-99); MEAN CORPUSCULAR HEMOGLOBIN 30.2 pg (27.0-31.0); MONOCYTE ABSOLUTE 0.7 Th/cmm (0.3-1.0); NEUTROPHILE ABSOLUTE 5.7 Th/cmm (1.8-8.0); PLATELET COUNT 228 Th/cmm (150-400); RED BLOOD COUNT 4.59 Mil/cmm (3.80-5.80); RED CELL DISTRIBUTION WIDTH 14.5 % (11.5-20.0); WHITE BLOOD COUNT 8.9 Th/cmm (4.8-10.8)
[2019-03-05 22:48] LABS: ALB/GLOB RATIO 1.2 (1.0-1.8); ALBUMIN 3.6 gm/dL (4.2-5.5); ALKALINE PHOSPHATASE 46 U/L (34-104); ANION GAP 12.6 (7.0-16.0); BILIRUBIN,TOTAL 0.2 mg/dL (0.3-1.0); BUN - UREA NITROGEN 22 mg/dL (7-25); CALCIUM SERUM 9.4 mg/dL (8.6-10.3); CARBON DIOXIDE 27.5 mEq/L (21.0-31.0); CHLORIDE 101 mEq/L (98-107); CREATININE - SERUM 0.7 mg/dL (0.7-1.3); GFR AFRICAN-AMERICAN > 60.0 ml/min (>90); GFR NON AFRICAN-AMERICAN > 60.0 ml/min; GLUCOSE 120 mg/dL (70-105); POTASSIUM SERUM 4.1 mEq/L (3.5-5.1); SGOT 26 U/L (13-39); SGPT/ALT 15 U/L (7-52); SODIUM SERUM 137 mEq/L (136-145); TOTAL PROTEIN,SERUM 6.7 gm/dL (6.0-8.3)
--- NOTE | 2019-03-06 11:53 | Progress Notes ---
DATE: 03/06/2019 Case was discussed with staff of the patient. The patient came to the Emergency Room, apparently they could not find a place to accept him because of his insurance. The patient continues to be rambling, internally preoccupied. Very poor insight about his threatening behavior. He has a history of prior suicide attempt. Continues to be unable to make safe plan for self-care, unpredictable, impulsive. We will be extending the hold because of the situation. I also asked the staff to start on Prolixin that he used to take and discussed side effects with 500 mg twice a day. We will continue in group therapy, milieu therapy, and adjust the medications as needed. JOB# [id number]
[2019-03-06 17:53] VITALS: BP 159/113
--- NOTE | 2019-03-07 14:04 | Psychiatric Evaluation ---
DATE OF SERVICE: 03/07/2019 IDENTIFYING INFORMATION: The patient is a 63-year-old male. CHIEF COMPLAINT: The patient was admitted on a hold to the Emergency Room first. He was at a restaurant. He was threatening to blow them up and try to take the security project manager's gun. He was agitated, yelling and screaming, mumbling to himself. The patient today is calmer. He was very agitated when I first met him. He reported that he has been depressed. He has been unable to sleep. He is homeless, unable to make safe plan for self-care, admitted using cocaine, LSD, marijuana, ____ to be more specific about it. He reports no auditory or visual hallucination, but feeling paranoid of being out on the streets. He was talking about at the beginning wanting to be on Ativan, Xanax ____, unable to give more specific information. PAST PSYCHIATRIC HISTORY: The patient reports has at least 1000 hospitalizations with a history of multiple times that he overdosed and history of trying to shoot himself. He has been homeless. MEDICAL HISTORY: Deferred to the medical doctor. ALLERGIES: The patient has no known drug allergies. MEDICATIONS: "I tried to start him on Prolixin 5 mg twice a day, substance abuse history. The patient reports he has used many drugs, but he likes mostly LSD, marijuana and crack cocaine. FAMILY AND SOCIAL HISTORY: The patient reports he is in 1983 was for 7 years, has no children. He has high school education. 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 Denies family psychotic disorder. MENTAL STATUS EXAMINATION: The patient is appropriately dressed, not very well groomed. Mood is depressed. Affect is constricted. Thoughts are more clear. Speech ____ alert. He was able to tell me the date, december be the beginning of March 2019. He knew he was at [facility]. He reports he has not been sleeping well. Appetite is okay. He denies any auditory hallucinations or paranoia. Denies any intent to harm anyone. His snf is good for age, date of . Recent memory is poor, unable to tell me exact details of why he came here. Insight about his illness is poor. Judgment is poor with his behavior, trying to threatening a security project manager, trying to take the gun. IMPRESSION: 1. Schizoaffective disorder, depressed. 2. Polysubstance dependence. MEDICAL DIAGNOSES: Deferred to the medical doctor. PLAN: I will be adding Remeron to his medication. We will do group therapy, milieu therapy, and regular therapy. ESTIMATED LENGTH OF STAY: 3-7 days. DISCHARGE CRITERIA: Decrease in psychosis, depression, agitation, after discharge outpatient treatment. [facility]# [id number]
--- NOTE | 2019-03-08 08:44 | History & Physical ---
ADMIT DATE: 03/08/2019 CHIEF COMPLAINT: Agitation. HISTORY OF PRESENT ILLNESS: This is a 63-year-old male who was admitted from the Emergency Room of [facility]. Originally, the patient came in from a restaurant, reported to have aggressive and agitation. He also had verbal threats to the staff from the restaurant. The patient appears to be paranoid with ongoing hallucination. Workup was done in the Emergency Room on which the patient was medically cleared and recommended for psychiatric evaluation. REVIEW OF SYSTEMS: GENERAL: This is a 63-year-old male. No fever, no weakness. HEAD: No headache. No dizziness. EYES: No eye pain, no blurring of vision. NECK: No neck pain or nuchal rigidity. CHEST: No chest pain or palpitation. PULMONARY: No coughing, no shortness of breath. GASTROINTESTINAL: No constipation, no diarrhea, no abdominal pain. MUSCULOSKELETAL: No joint pain, no muscle pain. SOCIAL HISTORY: The patient is currently homeless. Admits to use nicotine on a daily basis. Uses illicit drugs such as cocaine, marijuana, LSD, methamphetamine. Denies alcohol abuse. PSYCHIATRIC HISTORY: Includes schizoaffective disorder. FAMILY HISTORY: Unremarkable. PAST SURGICAL HISTORY: Unremarkable. PAST MEDICAL HISTORY: Unremarkable. PHYSICAL EXAMINATION: VITAL SIGNS: Temperature 98.8, heart rate of 100, blood pressure 160/88, respirations of 20, 99% on room air. GENERAL: This is a 63-year-old male in no acute distress. HEENT: Head is atraumatic and normocephalic. Eyes: Bilateral conjunctivae are clear. Bilateral pupils are equally round and reactive. NECK: Supple. No JVD. CARDIOVASCULAR: S1 and S2, without murmur. PULMONARY: Clear to auscultation. GASTROINTESTINAL: Soft and nontender without guarding. Positive bowel sounds. MUSCULOSKELETAL: No clubbing. No cyanosis noted. ASSESSMENT: 1. Schizoaffective disorder. 2. Polysubstance abuse. PLAN: We will admit the patient to Psychiatric Unit. We will follow up with a psychiatrist to monitor the patient's condition and behavior. We will do medication reconciliation accordingly. We will start the patient on blood pressure medication and also with clonidine 0.1 mg as needed. Treatment plans were discussed with the patient's nurse. Treatment plans were discussed with Dr. Bell. [facility]# [id number]
[2019-03-08] MEDS ORDERED: Haloperidol Lactate 5 mg/mL 1mL Vial IM ONE (13:17)
[2019-03-08] MEDS ORDERED: Haloperidol Lactate 5 mg/mL 1mL Vial ONE (13:21)
--- NOTE | 2019-03-08 23:23 | Progress Notes ---
DATE: 03/08/2019 Dr. Mas is covering for Dr. Goldstein. SUBJECTIVE: Chart reviewed and the patient interviewed. Also discussed the patient's condition with the staff and reviewed records and labs. The patient remains extremely agitated and is in irritable mood. The patient also is angry and yelling and screaming. Also, while I was on the unit, the patient was yelling and screaming and pounding on the door, and the patient had to be placed in a seclusion room and has to be given Haldol, Ativan and Benadryl, emergency medications to calm him down, but the patient still continued to yell and scream and pounding on the door, and I was unable to carry on any coherent conversation all the time during my stay. ASSESSMENT: The patient is still severely agitated and still needs close monitoring. TREATMENT PLAN: We will continue monitoring his behavior and his condition closely. Also, we will start the patient on Seroquel at a dose of 100 mg 3 times a day, hopefully to help to calm him down and will receive Prolixin and continue to follow up closely. JOB# [id number]
--- NOTE | 2019-03-09 09:58 | Internal Medicine Prog Note ---
Internal Medicine Subjective - Subjective Patient seen and examined:: with staff Patient is:: awake, verbal, interactive, agitated Per staff patient has:: no adverse event, no episodes of fall Internal Medicine Objective - Results Result Diagrams: 03/05/19 22:25 03/05/19 22:25 Recent Labs: Laboratory Last Values WBC 8.9 Th/cmm (4.8-10.8) 03/05/19 22:25 RBC 4.59 Mil/cmm (3.80-5.80) 03/05/19 22:25 Hgb 13.9 gm/dL (12-16) 03/05/19 22:25 Hct 41.9 % (41.0-60) 03/05/19 22:25 MCV 91.4 fl (80-99) 03/05/19 22:25 MCH 30.2 pg (27.0-31.0) 03/05/19 22:25 MCHC Differential 33.0 pg (28.0-36.0) 03/05/19 22:25 RDW 14.5 % (11.5-20.0) 03/05/19 22:25 Plt Count 228 Th/cmm (150-400) 03/05/19 22:25 MPV 8.3 fl 03/05/19 22:25 Neutrophils % 65.0 % (40.0-80.0) 03/05/19 22:25 Lymphocytes % 21.2 % (20.0-50.0) 03/05/19 22:25 Monocytes % 7.6 % (2.0-10.0) 03/05/19 22:25 Eosinophils % 2.9 % (0.0-5.0) 03/05/19 22:25 Basophils % 3.3 % (0.0-2.0) H 03/05/19 22:25 Sodium 137 mEq/L (136-145) 03/05/19 22:25 Potassium 4.1 mEq/L (3.5-5.1) 03/05/19 22:25 Chloride 101 mEq/L (98-107) 03/05/19 22:25 Carbon Dioxide 27.5 mEq/L (21.0-31.0) 03/05/19 22:25 Anion Gap 12.6 (7.0-16.0) 03/05/19 22:25 BUN 22 mg/dL (7-25) 03/05/19 22:25 Creatinine 0.7 mg/dL (0.7-1.3) 03/05/19 22:25 Est GFR ( Amer) > 60.0 ml/min (>90) 03/05/19 22:25 Est GFR (Non-Af Amer) > 60.0 ml/min 03/05/19 22:25 BUN/Creatinine Ratio 31.4 03/05/19 22:25 Glucose 120 mg/dL (70-105) H 03/05/19 22:25 POC Glucose 107 MG/DL (70 - 105) H 03/03/19 00:29 Whole Bld Lactic Acid 1.04 mmol/L (0.60-1.99) 03/02/19 22:20 Calcium 9.4 mg/dL (8.6-10.3) 03/05/19 22:25 Total Bilirubin 0.2 mg/dL (0.3-1.0) L 03/05/19 22:25 AST 26 U/L (13-39) 03/05/19 22:25 ALT 15 U/L (7-52) 03/05/19 22:25 Alkaline Phosphatase 46 U/L (34-104) 03/05/19 22:25 Troponin I 0.01 ng/mL (0.01-0.05) 03/05/19 22:25 Total Protein 6.7 gm/dL (6.0-8.3) 03/05/19 22:25 Albumin 3.6 gm/dL (4.2-5.5) L 03/05/19 22:25 Globulin 3.1 gm/dL 03/05/19 22:25 Albumin/Globulin Ratio 1.2 (1.0-1.8) 03/05/19 22:25 Urine Source CLEAN C 03/03/19 02:50 Urine Color YELLOW 03/03/19 02:50 Urine Clarity SLIGHT HAZY (CLEAR) 03/03/19 02:50 Urine pH 6.0 (4.6 - 8.0) 03/03/19 02:50 Ur Specific [place] >= 1.030 (1.005-1.030) 03/03/19 02:50 Urine Protein TRACE mg/dL (NEGATIVE) 03/03/19 02:50 Urine Glucose (UA) NEGATIVE mg/dL (NEGATIVE) 03/03/19 02:50 Urine Ketones NEGATIVE mg/dL (NEGATIVE) 03/03/19 02:50 Urine Blood TRACE (NEGATIVE) 03/03/19 02:50 Urine Nitrate NEGATIVE (NEGATIVE) 03/03/19 02:50 Urine Bilirubin NEGATIVE (NEGATIVE) 03/03/19 02:50 Urine Urobilinogen 0.2 E.U./dL (0.2 - 1.0) 03/03/19 02:50 Ur Leukocyte Esterase NEGATIVE (NEGATIVE) 03/03/19 02:50 Urine RBC 5-10 /hpf (0-5) H 03/03/19 02:50 Urine WBC 6-10 /hpf (0-5) 03/03/19 02:50 Ur Epithelial Cells RARE /lpf (FEW) 03/03/19 02:50 Urine Bacteria FEW /hpf (NONE SEEN) 03/03/19 02:50 Urine Opiates Screen NEGATIVE (NEGATIVE) 03/03/19 02:50 Urine Methadone Screen NEGATIVE (NEGATIVE) 03/03/19 02:50 Ur Barbiturates Screen NEGATIVE (NEGATIVE) 03/03/19 02:50 Ur Tricyclics Screen NEGATIVE (NEGATIVE) 03/03/19 02:50 Ur Phencyclidine Scrn NEGATIVE (NEGATIVE) 03/03/19 02:50 Amphetamines Screen POSITIVE (NEGATIVE) H 03/03/19 02:50 U Methamphetamines Scrn NEGATIVE (NEGATIVE) 03/03/19 02:50 U Benzodiazepines Scrn NEGATIVE (NEGATIVE) 03/03/19 02:50 U Cocaine Metab Screen NEGATIVE (NEGATIVE) 03/03/19 02:50 U Cannabinoids Screen NEGATIVE (NEGATIVE) 03/03/19 02:50 - Physical Exam Vitals and I&O: Vital Signs Temp 97.0 F 03/09/19 06:25 Pulse 75 03/09/19 06:25 Resp 19 03/09/19 06:25 BP 153/77 03/09/19 06:25 Pulse Ox 97 03/09/19 06:25 Intake & Output 03/08/19 03/09/19 03/09/19 18:59 06:59 18:59 Intake Total 1200 120 Balance 1200 120 Intake: Oral 1200 120 Other: # Voids 3 2 # Bowel Movements 0 0 Active Medications: Current Medications Acetaminophen (Tylenol) 650 mg PO Q4HR PRN PRN Reason: Mild Pain / Temp above 100 Stop: 05/05/19 21:06 Last Admin: 03/09/19 02:52 Dose: 650 mg Lorazepam (Ativan) 0.5 mg PO Q4HR PRN; Protocol PRN Reason: Anxiety Stop: 04/05/19 21:07 Last Admin: 03/08/19 08:04 Dose: 0.5 mg Mirtazapine (Remeron) 7.5 mg PO HS JENISE; Protocol Stop: 05/06/19 20:59 Last Admin: 03/08/19 21:46 Dose: 7.5 mg Quetiapine Fumarate (Seroquel) 100 mg PO TID JENISE; Protocol Stop: 05/07/19 13:59 Last Admin: 03/09/19 08:51 Dose: 100 mg Zolpidem Tartrate (Ambien) 5 mg PO HS PRN PRN Reason: Insomnia Stop: 05/05/19 21:07 Last Admin: 03/08/19 22:25 Dose: 5 mg General: NAD HEENT: NC/AT, PERRLA Neck: Supple, No JVD, No LAD Lungs: CTAB Cardiovascular: RRR, Normal S1, Normal S2 Abdomen: soft, non-tender, non-distended Internal Medicine Assmt/Plan - Assessment Assessment: Schizoaffective disorder Polysubstance abuse Bipolar HTN OA - Plan Plan: Continue current treatment plan. Monitor Labs.Continue current medications Continue to monitor VS Monitor Diet/Nutritional support. Psych management per Psychiatry. Pain Management. PT/OT prn Safety precaution, Fall precaution, frequent nursing round. Supportive care. Continue collaborating with consulting specialists, case management and nursing team.
--- NOTE | 2019-03-09 20:31 | Progress Notes ---
DATE: SUBJECTIVE: Chart was reviewed and the patient interviewed. Also discussed the patient's condition with the staff and reviewed records and labs. The patient is extremely irritable and extremely agitated. The patient also is constantly asking for food and gets angry, was yelling and screaming when he does not get the food. The patient seems to be slightly better today and less agitated than yesterday, after yesterday the patient was extremely agitated and the patient was given Haldol, Ativan and Benadryl emergency dose to calm him down. ASSESSMENT: The patient is still psychotic and agitated and needs close monitoring. TREATMENT PLAN: Continue to monitor behavior and condition closely. Also, continue adjusting psychotropic medications and working on behavioral modification. [facility]# [id number]
--- NOTE | 2019-03-11 00:19 | Progress Notes ---
DATE: 03/10/2019 Case was discussed with staff of the patient, reviewed treatment plans and goals. The patient apparently had probable cause hearing. 5250 was upheld The patient was yelling and screaming today. Continues to have poor insight, unpredictable, impulsive, needing redirection. Sleeping well, eating well and he has no place to go to, working on placement as well and discharge plan. He continues to be rambling, easily agitated. We will continue outpatient group therapy, milieu therapy, and adjust medication as needed. JOB# [id number] [email or web address]
--- NOTE | 2019-03-11 10:37 | Internal Medicine Prog Note ---
Internal Medicine Subjective - Subjective Service Date: 03/11/19 Patient is:: awake, verbal, interactive, agitated Per staff patient has:: no adverse event, no episodes of fall Internal Medicine Objective - Results Result Diagrams: 03/05/19 22:25 03/05/19 22:25 Recent Labs: Laboratory Last Values WBC 8.9 Th/cmm (4.8-10.8) 03/05/19 22:25 RBC 4.59 Mil/cmm (3.80-5.80) 03/05/19 22:25 Hgb 13.9 gm/dL (12-16) 03/05/19 22:25 Hct 41.9 % (41.0-60) 03/05/19 22:25 MCV 91.4 fl (80-99) 03/05/19 22:25 MCH 30.2 pg (27.0-31.0) 03/05/19 22:25 MCHC Differential 33.0 pg (28.0-36.0) 03/05/19 22:25 RDW 14.5 % (11.5-20.0) 03/05/19 22:25 Plt Count 228 Th/cmm (150-400) 03/05/19 22:25 MPV 8.3 fl 03/05/19 22:25 Neutrophils % 65.0 % (40.0-80.0) 03/05/19 22:25 Lymphocytes % 21.2 % (20.0-50.0) 03/05/19 22:25 Monocytes % 7.6 % (2.0-10.0) 03/05/19 22:25 Eosinophils % 2.9 % (0.0-5.0) 03/05/19 22:25 Basophils % 3.3 % (0.0-2.0) H 03/05/19 22:25 Sodium 137 mEq/L (136-145) 03/05/19 22:25 Potassium 4.1 mEq/L (3.5-5.1) 03/05/19 22:25 Chloride 101 mEq/L (98-107) 03/05/19 22:25 Carbon Dioxide 27.5 mEq/L (21.0-31.0) 03/05/19 22:25 Anion Gap 12.6 (7.0-16.0) 03/05/19 22:25 BUN 22 mg/dL (7-25) 03/05/19 22:25 Creatinine 0.7 mg/dL (0.7-1.3) 03/05/19 22:25 Est GFR ( Amer) > 60.0 ml/min (>90) 03/05/19 22:25 Est GFR (Non-Af Amer) > 60.0 ml/min 03/05/19 22:25 BUN/Creatinine Ratio 31.4 03/05/19 22:25 Glucose 120 mg/dL (70-105) H 03/05/19 22:25 POC Glucose 107 MG/DL (70 - 105) H 03/03/19 00:29 Whole Bld Lactic Acid 1.04 mmol/L (0.60-1.99) 03/02/19 22:20 Calcium 9.4 mg/dL (8.6-10.3) 03/05/19 22:25 Total Bilirubin 0.2 mg/dL (0.3-1.0) L 03/05/19 22:25 AST 26 U/L (13-39) 03/05/19 22:25 ALT 15 U/L (7-52) 03/05/19 22:25 Alkaline Phosphatase 46 U/L (34-104) 03/05/19 22:25 Troponin I 0.01 ng/mL (0.01-0.05) 03/05/19 22:25 Total Protein 6.7 gm/dL (6.0-8.3) 03/05/19 22:25 Albumin 3.6 gm/dL (4.2-5.5) L 03/05/19 22:25 Globulin 3.1 gm/dL 03/05/19 22:25 Albumin/Globulin Ratio 1.2 (1.0-1.8) 03/05/19 22:25 Urine Source CLEAN C 03/03/19 02:50 Urine Color YELLOW 03/03/19 02:50 Urine Clarity SLIGHT HAZY (CLEAR) 03/03/19 02:50 Urine pH 6.0 (4.6 - 8.0) 03/03/19 02:50 Ur Specific [place] >= 1.030 (1.005-1.030) 03/03/19 02:50 Urine Protein TRACE mg/dL (NEGATIVE) 03/03/19 02:50 Urine Glucose (UA) NEGATIVE mg/dL (NEGATIVE) 03/03/19 02:50 Urine Ketones NEGATIVE mg/dL (NEGATIVE) 03/03/19 02:50 Urine Blood TRACE (NEGATIVE) 03/03/19 02:50 Urine Nitrate NEGATIVE (NEGATIVE) 03/03/19 02:50 Urine Bilirubin NEGATIVE (NEGATIVE) 03/03/19 02:50 Urine Urobilinogen 0.2 E.U./dL (0.2 - 1.0) 03/03/19 02:50 Ur Leukocyte Esterase NEGATIVE (NEGATIVE) 03/03/19 02:50 Urine RBC 5-10 /hpf (0-5) H 03/03/19 02:50 Urine WBC 6-10 /hpf (0-5) 03/03/19 02:50 Ur Epithelial Cells RARE /lpf (FEW) 03/03/19 02:50 Urine Bacteria FEW /hpf (NONE SEEN) 03/03/19 02:50 Urine Opiates Screen NEGATIVE (NEGATIVE) 03/03/19 02:50 Urine Methadone Screen NEGATIVE (NEGATIVE) 03/03/19 02:50 Ur Barbiturates Screen NEGATIVE (NEGATIVE) 03/03/19 02:50 Ur Tricyclics Screen NEGATIVE (NEGATIVE) 03/03/19 02:50 Ur Phencyclidine Scrn NEGATIVE (NEGATIVE) 03/03/19 02:50 Amphetamines Screen POSITIVE (NEGATIVE) H 03/03/19 02:50 U Methamphetamines Scrn NEGATIVE (NEGATIVE) 03/03/19 02:50 U Benzodiazepines Scrn NEGATIVE (NEGATIVE) 03/03/19 02:50 U Cocaine Metab Screen NEGATIVE (NEGATIVE) 03/03/19 02:50 U Cannabinoids Screen NEGATIVE (NEGATIVE) 03/03/19 02:50 - Physical Exam Vitals and I&O: Vital Signs Temp 97.3 F 03/11/19 05:31 Pulse 88 03/11/19 05:31 Resp 20 03/11/19 05:31 BP 147/89 03/11/19 05:31 Pulse Ox 95 03/11/19 05:31 Intake & Output 03/10/19 03/11/19 03/11/19 18:59 06:59 18:59 Intake Total 240 240 Balance 240 240 Weight (lbs) 210 lb Intake: Oral 240 240 Other: # Voids 4 2 # Bowel Movements 0 Weight Source Bedscale Active Medications: Current Medications Acetaminophen (Tylenol) 650 mg PO Q4HR PRN PRN Reason: Mild Pain / Temp above 100 Stop: 05/05/19 21:06 Last Admin: 03/10/19 23:12 Dose: 650 mg Lorazepam (Ativan) 0.5 mg PO Q4HR PRN; Protocol PRN Reason: Anxiety Stop: 04/05/19 21:07 Last Admin: 03/11/19 09:28 Dose: 0.5 mg Mirtazapine (Remeron) 7.5 mg PO HS JENISE; Protocol Stop: 05/06/19 20:59 Last Admin: 03/10/19 20:30 Dose: 7.5 mg Quetiapine Fumarate (Seroquel) 100 mg PO TID JENISE; Protocol Stop: 05/07/19 13:59 Last Admin: 03/11/19 09:28 Dose: 100 mg Zolpidem Tartrate (Ambien) 5 mg PO HS PRN PRN Reason: Insomnia Stop: 05/05/19 21:07 Last Admin: 03/10/19 22:41 Dose: 5 mg General: NAD HEENT: NC/AT, PERRLA Neck: Supple, No JVD, No LAD Lungs: CTAB Cardiovascular: RRR, Normal S1, Normal S2 Abdomen: soft, non-tender, non-distended Internal Medicine Assmt/Plan - Assessment Assessment: Schizoaffective disorder Polysubstance abuse Bipolar HTN OA - Plan Plan: Continue current treatment plan. Monitor Labs.Continue current medications Continue to monitor VS Monitor Diet/Nutritional support. Psych management per Psychiatry. Pain Management. PT/OT prn Safety precaution, Fall precaution, frequent nursing round. Supportive care. Continue collaborating with consulting specialists, case management and nursing team.
[2019-03-11] MEDS ORDERED: Haloperidol Lactate 5 mg/mL 1mL Vial IM STA (11:05)
--- NOTE | 2019-03-11 16:27 | Progress Notes ---
DATE: 03/11/2019 Case was discussed with staff of the patient, reviewed records. The patient was acting out this morning, had to be given emergency medication by Dr. Mas who gave the order. They put it under my name and I agreed to sign it. He is still rambling, unable to make safe plan for self-care, easily agitated. He is still unpredictable, impulsive, now he is trying to find him a placement and he claimed that he does have a home to go, which is not what he told me a few days ago. We will try to verify that. No side effects with the medication. No sedation. No nausea. No extrapyramidal symptoms. We will continue outpatient group therapy, milieu therapy, and adjust the medication as needed. JOB# [id number]
--- NOTE | 2019-03-12 13:42 | Internal Medicine Prog Note ---
Internal Medicine Subjective - Subjective Service Date: 03/12/19 Patient seen and examined:: chart reviewed Patient is:: awake, verbal, interactive, agitated Patient Complaints of:: other (Anxious and agressive mood.) Per staff patient has:: no adverse event, no episodes of fall Internal Medicine Objective - Results Result Diagrams: 03/05/19 22:25 03/05/19 22:25 Recent Labs: Laboratory Last Values WBC 8.9 Th/cmm (4.8-10.8) 03/05/19 22:25 RBC 4.59 Mil/cmm (3.80-5.80) 03/05/19 22:25 Hgb 13.9 gm/dL (12-16) 03/05/19 22:25 Hct 41.9 % (41.0-60) 03/05/19 22:25 MCV 91.4 fl (80-99) 03/05/19 22:25 MCH 30.2 pg (27.0-31.0) 03/05/19 22:25 MCHC Differential 33.0 pg (28.0-36.0) 03/05/19 22:25 RDW 14.5 % (11.5-20.0) 03/05/19 22:25 Plt Count 228 Th/cmm (150-400) 03/05/19 22:25 MPV 8.3 fl 03/05/19 22:25 Neutrophils % 65.0 % (40.0-80.0) 03/05/19 22:25 Lymphocytes % 21.2 % (20.0-50.0) 03/05/19 22:25 Monocytes % 7.6 % (2.0-10.0) 03/05/19 22:25 Eosinophils % 2.9 % (0.0-5.0) 03/05/19 22:25 Basophils % 3.3 % (0.0-2.0) H 03/05/19 22:25 Sodium 137 mEq/L (136-145) 03/05/19 22:25 Potassium 4.1 mEq/L (3.5-5.1) 03/05/19 22:25 Chloride 101 mEq/L (98-107) 03/05/19 22:25 Carbon Dioxide 27.5 mEq/L (21.0-31.0) 03/05/19 22:25 Anion Gap 12.6 (7.0-16.0) 03/05/19 22:25 BUN 22 mg/dL (7-25) 03/05/19 22:25 Creatinine 0.7 mg/dL (0.7-1.3) 03/05/19 22:25 Est GFR ( Amer) > 60.0 ml/min (>90) 03/05/19 22:25 Est GFR (Non-Af Amer) > 60.0 ml/min 03/05/19 22:25 BUN/Creatinine Ratio 31.4 03/05/19 22:25 Glucose 120 mg/dL (70-105) H 03/05/19 22:25 POC Glucose 107 MG/DL (70 - 105) H 03/03/19 00:29 Whole Bld Lactic Acid 1.04 mmol/L (0.60-1.99) 03/02/19 22:20 Calcium 9.4 mg/dL (8.6-10.3) 03/05/19 22:25 Total Bilirubin 0.2 mg/dL (0.3-1.0) L 03/05/19 22:25 AST 26 U/L (13-39) 03/05/19 22:25 ALT 15 U/L (7-52) 03/05/19 22:25 Alkaline Phosphatase 46 U/L (34-104) 03/05/19 22:25 Troponin I 0.01 ng/mL (0.01-0.05) 03/05/19 22:25 Total Protein 6.7 gm/dL (6.0-8.3) 03/05/19 22:25 Albumin 3.6 gm/dL (4.2-5.5) L 03/05/19 22:25 Globulin 3.1 gm/dL 03/05/19 22:25 Albumin/Globulin Ratio 1.2 (1.0-1.8) 03/05/19 22:25 Urine Source CLEAN C 03/03/19 02:50 Urine Color YELLOW 03/03/19 02:50 Urine Clarity SLIGHT HAZY (CLEAR) 03/03/19 02:50 Urine pH 6.0 (4.6 - 8.0) 03/03/19 02:50 Ur Specific [place] >= 1.030 (1.005-1.030) 03/03/19 02:50 Urine Protein TRACE mg/dL (NEGATIVE) 03/03/19 02:50 Urine Glucose (UA) NEGATIVE mg/dL (NEGATIVE) 03/03/19 02:50 Urine Ketones NEGATIVE mg/dL (NEGATIVE) 03/03/19 02:50 Urine Blood TRACE (NEGATIVE) 03/03/19 02:50 Urine Nitrate NEGATIVE (NEGATIVE) 03/03/19 02:50 Urine Bilirubin NEGATIVE (NEGATIVE) 03/03/19 02:50 Urine Urobilinogen 0.2 E.U./dL (0.2 - 1.0) 03/03/19 02:50 Ur Leukocyte Esterase NEGATIVE (NEGATIVE) 03/03/19 02:50 Urine RBC 5-10 /hpf (0-5) H 03/03/19 02:50 Urine WBC 6-10 /hpf (0-5) 03/03/19 02:50 Ur Epithelial Cells RARE /lpf (FEW) 03/03/19 02:50 Urine Bacteria FEW /hpf (NONE SEEN) 03/03/19 02:50 Urine Opiates Screen NEGATIVE (NEGATIVE) 03/03/19 02:50 Urine Methadone Screen NEGATIVE (NEGATIVE) 03/03/19 02:50 Ur Barbiturates Screen NEGATIVE (NEGATIVE) 03/03/19 02:50 Ur Tricyclics Screen NEGATIVE (NEGATIVE) 03/03/19 02:50 Ur Phencyclidine Scrn NEGATIVE (NEGATIVE) 03/03/19 02:50 Amphetamines Screen POSITIVE (NEGATIVE) H 03/03/19 02:50 U Methamphetamines Scrn NEGATIVE (NEGATIVE) 03/03/19 02:50 U Benzodiazepines Scrn NEGATIVE (NEGATIVE) 03/03/19 02:50 U Cocaine Metab Screen NEGATIVE (NEGATIVE) 03/03/19 02:50 U Cannabinoids Screen NEGATIVE (NEGATIVE) 03/03/19 02:50 - Physical Exam Vitals and I&O: Vital Signs Temp 97.1 F 03/12/19 06:17 Pulse 84 03/12/19 06:17 Resp 18 03/12/19 08:00 BP 146/95 03/12/19 06:17 Pulse Ox 96 03/12/19 06:17 Intake & Output 03/11/19 03/12/19 03/12/19 18:59 06:59 18:59 Intake Total 240 Balance 240 Intake: Oral 240 Other: # Voids 3 Stool Characteristics Formed Active Medications: Current Medications Acetaminophen (Tylenol) 650 mg PO Q4HR PRN PRN Reason: Mild Pain / Temp above 100 Stop: 05/05/19 21:06 Last Admin: 03/12/19 02:43 Dose: 650 mg Divalproex Sodium (Depakote Er) 500 mg PO BID [facility]; Protocol Stop: 05/10/19 16:59 Last Admin: 03/12/19 08:32 Dose: 500 mg Lorazepam (Ativan) 0.5 mg PO Q4HR PRN; Protocol PRN Reason: Anxiety Stop: 04/05/19 21:07 Last Admin: 03/12/19 08:32 Dose: 0.5 mg Mirtazapine (Remeron) 7.5 mg PO HS JENISE; Protocol Stop: 05/06/19 20:59 Last Admin: 03/11/19 20:42 Dose: 7.5 mg Quetiapine Fumarate (Seroquel) 200 mg PO BID [facility]; Protocol Stop: 05/11/19 16:59 Zolpidem Tartrate (Ambien) 5 mg PO HS PRN PRN Reason: Insomnia Stop: 05/05/19 21:07 Last Admin: 03/11/19 22:06 Dose: 5 mg Physical Exam: Patient is in an anxious and aggressive mood. General: NAD, other (Anxious.) HEENT: NC/AT, PERRLA Neck: Supple, No JVD, No LAD Lungs: CTAB Cardiovascular: RRR, Normal S1, Normal S2 Abdomen: soft, non-tender, non-distended Extremities: clear Neurological: no change Internal Medicine Assmt/Plan - Assessment Assessment: Schizoaffective disorder. Polysubstance abuse. Bipolar. Hypertension. Osteoarthritis. - Plan Plan: Continuation of care. Monitor Labs. Continue present meds as directed. Monitor vitals, Continue Blood pressure meds as directed. Monitor Diet/Nutritional support. Psych management per Psych. Pain Management. PT/OT prn. Safety precaution. Supportive care. Fall precaution, frequent nursing rounds, and as needed restraints to prevent fall. Continue collaborating with consulting specialists, case management and nursing team. Will Monitor patient and continue present care management. Nutritional Asmnt/Malnutr-PDOC - Dietary Evaluation Malnutrition Findings (Please click <Entered> for more info): see orders.
--- NOTE | 2019-03-12 16:27 | Progress Notes ---
DATE: 03/12/2019 Case was discussed with staff of the patient, reviewed records. The patient has been very irritable. He has been calling the staff names. He believes he needs to be out of here and that he has a landlord who told him he can go back. He continues to have poor insight, unable to make safe plan for self-care, unpredictable, impulsive, needing redirection. I will be increasing Seroquel to 200 mg twice a day, he was on 100 three times a day and also working on placement for this patient. No side effects with the medication, no sedation, no nausea, no extrapyramidal symptoms. He reported that somebody ____ gave him LSD prior to him coming here. He is rambling, very agitated and now upon admission said he is homeless, ____ his landlord then he can go back home and we will continue to work with the patient in group therapy, milieu therapy, adjust the medication as needed. JOB# [id number]
--- NOTE | 2019-03-13 10:40 | Internal Medicine Prog Note ---
Internal Medicine Subjective - Subjective Service Date: 03/13/19 Patient is:: awake, verbal, interactive, agitated Patient Complaints of:: other (Anxious and agressive mood.) Per staff patient has:: no adverse event, no episodes of fall Internal Medicine Objective - Results Result Diagrams: 03/05/19 22:25 03/05/19 22:25 Recent Labs: Laboratory Last Values WBC 8.9 Th/cmm (4.8-10.8) 03/05/19 22:25 RBC 4.59 Mil/cmm (3.80-5.80) 03/05/19 22:25 Hgb 13.9 gm/dL (12-16) 03/05/19 22:25 Hct 41.9 % (41.0-60) 03/05/19 22:25 MCV 91.4 fl (80-99) 03/05/19 22:25 MCH 30.2 pg (27.0-31.0) 03/05/19 22:25 MCHC Differential 33.0 pg (28.0-36.0) 03/05/19 22:25 RDW 14.5 % (11.5-20.0) 03/05/19 22:25 Plt Count 228 Th/cmm (150-400) 03/05/19 22:25 MPV 8.3 fl 03/05/19 22:25 Neutrophils % 65.0 % (40.0-80.0) 03/05/19 22:25 Lymphocytes % 21.2 % (20.0-50.0) 03/05/19 22:25 Monocytes % 7.6 % (2.0-10.0) 03/05/19 22:25 Eosinophils % 2.9 % (0.0-5.0) 03/05/19 22:25 Basophils % 3.3 % (0.0-2.0) H 03/05/19 22:25 Sodium 137 mEq/L (136-145) 03/05/19 22:25 Potassium 4.1 mEq/L (3.5-5.1) 03/05/19 22:25 Chloride 101 mEq/L (98-107) 03/05/19 22:25 Carbon Dioxide 27.5 mEq/L (21.0-31.0) 03/05/19 22:25 Anion Gap 12.6 (7.0-16.0) 03/05/19 22:25 BUN 22 mg/dL (7-25) 03/05/19 22:25 Creatinine 0.7 mg/dL (0.7-1.3) 03/05/19 22:25 Est GFR ( Amer) > 60.0 ml/min (>90) 03/05/19 22:25 Est GFR (Non-Af Amer) > 60.0 ml/min 03/05/19 22:25 BUN/Creatinine Ratio 31.4 03/05/19 22:25 Glucose 120 mg/dL (70-105) H 03/05/19 22:25 POC Glucose 107 MG/DL (70 - 105) H 03/03/19 00:29 Whole Bld Lactic Acid 1.04 mmol/L (0.60-1.99) 03/02/19 22:20 Calcium 9.4 mg/dL (8.6-10.3) 03/05/19 22:25 Total Bilirubin 0.2 mg/dL (0.3-1.0) L 03/05/19 22:25 AST 26 U/L (13-39) 03/05/19 22:25 ALT 15 U/L (7-52) 03/05/19 22:25 Alkaline Phosphatase 46 U/L (34-104) 03/05/19 22:25 Troponin I 0.01 ng/mL (0.01-0.05) 03/05/19 22:25 Total Protein 6.7 gm/dL (6.0-8.3) 03/05/19 22:25 Albumin 3.6 gm/dL (4.2-5.5) L 03/05/19 22:25 Globulin 3.1 gm/dL 03/05/19 22:25 Albumin/Globulin Ratio 1.2 (1.0-1.8) 03/05/19 22:25 Urine Source CLEAN C 03/03/19 02:50 Urine Color YELLOW 03/03/19 02:50 Urine Clarity SLIGHT HAZY (CLEAR) 03/03/19 02:50 Urine pH 6.0 (4.6 - 8.0) 03/03/19 02:50 Ur Specific [place] >= 1.030 (1.005-1.030) 03/03/19 02:50 Urine Protein TRACE mg/dL (NEGATIVE) 03/03/19 02:50 Urine Glucose (UA) NEGATIVE mg/dL (NEGATIVE) 03/03/19 02:50 Urine Ketones NEGATIVE mg/dL (NEGATIVE) 03/03/19 02:50 Urine Blood TRACE (NEGATIVE) 03/03/19 02:50 Urine Nitrate NEGATIVE (NEGATIVE) 03/03/19 02:50 Urine Bilirubin NEGATIVE (NEGATIVE) 03/03/19 02:50 Urine Urobilinogen 0.2 E.U./dL (0.2 - 1.0) 03/03/19 02:50 Ur Leukocyte Esterase NEGATIVE (NEGATIVE) 03/03/19 02:50 Urine RBC 5-10 /hpf (0-5) H 03/03/19 02:50 Urine WBC 6-10 /hpf (0-5) 03/03/19 02:50 Ur Epithelial Cells RARE /lpf (FEW) 03/03/19 02:50 Urine Bacteria FEW /hpf (NONE SEEN) 03/03/19 02:50 Urine Opiates Screen NEGATIVE (NEGATIVE) 03/03/19 02:50 Urine Methadone Screen NEGATIVE (NEGATIVE) 03/03/19 02:50 Ur Barbiturates Screen NEGATIVE (NEGATIVE) 03/03/19 02:50 Ur Tricyclics Screen NEGATIVE (NEGATIVE) 03/03/19 02:50 Ur Phencyclidine Scrn NEGATIVE (NEGATIVE) 03/03/19 02:50 Amphetamines Screen POSITIVE (NEGATIVE) H 03/03/19 02:50 U Methamphetamines Scrn NEGATIVE (NEGATIVE) 03/03/19 02:50 U Benzodiazepines Scrn NEGATIVE (NEGATIVE) 03/03/19 02:50 U Cocaine Metab Screen NEGATIVE (NEGATIVE) 03/03/19 02:50 U Cannabinoids Screen NEGATIVE (NEGATIVE) 03/03/19 02:50 - Physical Exam Vitals and I&O: Vital Signs Temp 97.9 F 03/13/19 06:24 Pulse 92 03/13/19 06:24 Resp 20 03/13/19 06:24 BP 154/94 03/13/19 06:24 Pulse Ox 97 03/13/19 06:24 Intake & Output 03/12/19 03/13/19 03/13/19 18:59 06:59 18:59 Intake Total 1200 360 Balance 1200 360 Intake: Oral 1200 360 Other: # Voids 3 1 # Bowel Movements 0 0 Stool Characteristics Formed Formed Active Medications: Current Medications Acetaminophen (Tylenol) 650 mg PO Q4HR PRN PRN Reason: Mild Pain / Temp above 100 Stop: 05/05/19 21:06 Last Admin: 03/13/19 02:57 Dose: 650 mg Divalproex Sodium (Depakote Er) 500 mg PO BID [facility]; Protocol Stop: 05/10/19 16:59 Last Admin: 03/13/19 08:44 Dose: Not Given Lorazepam (Ativan) 0.5 mg PO Q4HR PRN; Protocol PRN Reason: Anxiety Stop: 04/05/19 21:07 Last Admin: 03/13/19 08:39 Dose: 0.5 mg Mirtazapine (Remeron) 7.5 mg PO HS [facility]; Protocol Stop: 05/06/19 20:59 Last Admin: 03/12/19 20:30 Dose: 7.5 mg Quetiapine Fumarate (Seroquel) 200 mg PO BID [facility]; Protocol Stop: 05/11/19 16:59 Last Admin: 03/13/19 08:39 Dose: 200 mg Zolpidem Tartrate (Ambien) 5 mg PO HS PRN PRN Reason: Insomnia Stop: 05/05/19 21:07 Last Admin: 03/12/19 20:30 Dose: 5 mg General: NAD, other (Anxious.) HEENT: NC/AT, PERRLA Neck: Supple, No JVD, No LAD Lungs: CTAB Cardiovascular: RRR, Normal S1, Normal S2 Abdomen: soft, non-tender, non-distended Extremities: clear Neurological: no change Internal Medicine Assmt/Plan - Assessment Assessment: Schizoaffective disorder Polysubstance abuse Bipolar HTN OA - Plan Plan: Continue current treatment plan. Monitor Labs.Continue current medications Continue to monitor VS Monitor Diet/Nutritional support. Psych management per Psychiatry. Pain Management. PT/OT prn Safety precaution, Fall precaution, frequent nursing round. Supportive care. Continue collaborating with consulting specialists, case management and nursing team. Nutritional Asmnt/Malnutr-PDOC - Dietary Evaluation Malnutrition Findings (Please click <Entered> for more info): Nutritional Asmnt/Malnutrition Start: 03/12/19 14: 50 Text: Status: Complete Freq: Protocol: Document 03/12/19 14:50 CARLIEMUS (Rec: 03/12/19 14:53 CARLIEPIERRE [email or web address]) Nutritional Asmnt/Malnutrition Patient General Information Nutritional Screening Low Risk Diagnosis Psychosis Pertinent Medical Hx/Surgical Hx Unremarkable (per H&P Report) Subjective Information Pt is a 63-year-old male admitted on 03/06 d/t aggression and agitation. Pt is homeless and admits to using illicit drugs. Pt has eaten well since admission, meeting all nutritional needs. HT: 59 WT: 210 LB (95.45 kg) ABW: 173 LB (78.47 kg) BMI: 31.01 (Obese) GI: WNL, Soft, Round, Non- tender BM: Not noted I/O: 240/Not Noted Skin: WNL, dryness John: 20 Diet Order: Regular Estimated Energy Needs: ( Geriatric, ABW) 7685-6427 kcals (25-30 kcals/ kg) 78-94g Pro (1.0-1.2 g/kg) 1567-9121 ml (25-30 ml/kg) Pt is eating 100% of meals Per Meal/Nutrition Activity Record. Dietary is currently providing an estimated 3170 kcals and 140 gm Pro to meet 100+% kcal and 100+% Pro needs . Current Diet Order/ Nutrition Support Regular Pertinent Medications No pertinent medications Pertinent Labs 03/05: Glucose 120, T Bili 0.2, Alb 3.6 Nutritional Hx/Data Height 5 ft 9 in Height (Calculated Centimeters) 175.3 Current Weight (lbs) 210 lb Weight (Calculated Kilograms) 95.3 Weight (Calculated Grams) 23474.4 [place] Body Weight 160 LB (72.73 kg) % [place] Body Weight 131 Body Mass Index (BMI) 31.0 Weight Status Obese GI Symptoms GI Symptoms None Last BM Not noted Skin Integrity/Comment: Skin: WNL, dryness John: 20 Current %PO Good (75-100%) Estimated Nutritional Goals BEE in Kcals: Adj wt of IBW Calories/Kcals/Kg 25-30 Kcals Calculated 4083-7331 Protein: Adj wt of IBW Protein g/k.0-1.2 Protein Calculated 78-94 Fluid: ml 9171-8148 ml (25-30 ml/kg) Nutritional Problem 1. Problem Problem Poor nutrition quality of life Etiology r/t Pt being homeless Signs/Symptoms: aeb BMI 31.01 and Pt self- report. Malnutrition Related to Morbid Obesity Malnutrition related to morbid obesity No Intervention/Recommendation Comments Continue with Regular diet as ordered. Expected Outcomes/Goals Expected Outcomes/Goals 1. PO intake to continue to meet 75% of nutritional needs. 2. Monitor PO intake, wt, nutrition related labs, and skin integrity. 3. F/U as low risk in 7 days, 03/19
--- NOTE | 2019-03-13 13:02 | Progress Notes ---
DATE: 03/13/2019 Case was discussed with staff of the patient, reviewed records. The patient continues to be unpredictable, impulsive, needing redirection. Continues to have poor insight, unable to make safe plan for self-care, unpredictable, impulsive, getting easily agitated. No side effects with the medication, no sedation, no nausea, no extrapyramidal symptoms. Increased Seroquel dose yesterday 200 mg twice a day. We will continue to work with the patient in group therapy, milieu therapy, and adjust the medications as needed. JOB# [id number]
--- NOTE | 2019-03-14 10:59 | Internal Medicine Prog Note ---
Internal Medicine Subjective - Subjective Service Date: 03/14/19 Patient seen and examined:: with staff Patient is:: awake, verbal, interactive, agitated Patient Complaints of:: other (Is still very Anxious and agressive mood.) Per staff patient has:: no adverse event, no episodes of fall Internal Medicine Objective - Results Result Diagrams: 03/05/19 22:25 03/05/19 22:25 Recent Labs: Laboratory Last Values WBC 8.9 Th/cmm (4.8-10.8) 03/05/19 22:25 RBC 4.59 Mil/cmm (3.80-5.80) 03/05/19 22:25 Hgb 13.9 gm/dL (12-16) 03/05/19 22:25 Hct 41.9 % (41.0-60) 03/05/19 22:25 MCV 91.4 fl (80-99) 03/05/19 22:25 MCH 30.2 pg (27.0-31.0) 03/05/19 22:25 MCHC Differential 33.0 pg (28.0-36.0) 03/05/19 22:25 RDW 14.5 % (11.5-20.0) 03/05/19 22:25 Plt Count 228 Th/cmm (150-400) 03/05/19 22:25 MPV 8.3 fl 03/05/19 22:25 Neutrophils % 65.0 % (40.0-80.0) 03/05/19 22:25 Lymphocytes % 21.2 % (20.0-50.0) 03/05/19 22:25 Monocytes % 7.6 % (2.0-10.0) 03/05/19 22:25 Eosinophils % 2.9 % (0.0-5.0) 03/05/19 22:25 Basophils % 3.3 % (0.0-2.0) H 03/05/19 22:25 Sodium 137 mEq/L (136-145) 03/05/19 22:25 Potassium 4.1 mEq/L (3.5-5.1) 03/05/19 22:25 Chloride 101 mEq/L (98-107) 03/05/19 22:25 Carbon Dioxide 27.5 mEq/L (21.0-31.0) 03/05/19 22:25 Anion Gap 12.6 (7.0-16.0) 03/05/19 22:25 BUN 22 mg/dL (7-25) 03/05/19 22:25 Creatinine 0.7 mg/dL (0.7-1.3) 03/05/19 22:25 Est GFR ( Amer) > 60.0 ml/min (>90) 03/05/19 22:25 Est GFR (Non-Af Amer) > 60.0 ml/min 03/05/19 22:25 BUN/Creatinine Ratio 31.4 03/05/19 22:25 Glucose 120 mg/dL (70-105) H 03/05/19 22:25 POC Glucose 107 MG/DL (70 - 105) H 03/03/19 00:29 Whole Bld Lactic Acid 1.04 mmol/L (0.60-1.99) 03/02/19 22:20 Calcium 9.4 mg/dL (8.6-10.3) 03/05/19 22:25 Total Bilirubin 0.2 mg/dL (0.3-1.0) L 03/05/19 22:25 AST 26 U/L (13-39) 03/05/19 22:25 ALT 15 U/L (7-52) 03/05/19 22:25 Alkaline Phosphatase 46 U/L (34-104) 03/05/19 22:25 Troponin I 0.01 ng/mL (0.01-0.05) 03/05/19 22:25 Total Protein 6.7 gm/dL (6.0-8.3) 03/05/19 22:25 Albumin 3.6 gm/dL (4.2-5.5) L 03/05/19 22:25 Globulin 3.1 gm/dL 03/05/19 22:25 Albumin/Globulin Ratio 1.2 (1.0-1.8) 03/05/19 22:25 Urine Source CLEAN C 03/03/19 02:50 Urine Color YELLOW 03/03/19 02:50 Urine Clarity SLIGHT HAZY (CLEAR) 03/03/19 02:50 Urine pH 6.0 (4.6 - 8.0) 03/03/19 02:50 Ur Specific [place] >= 1.030 (1.005-1.030) 03/03/19 02:50 Urine Protein TRACE mg/dL (NEGATIVE) 03/03/19 02:50 Urine Glucose (UA) NEGATIVE mg/dL (NEGATIVE) 03/03/19 02:50 Urine Ketones NEGATIVE mg/dL (NEGATIVE) 03/03/19 02:50 Urine Blood TRACE (NEGATIVE) 03/03/19 02:50 Urine Nitrate NEGATIVE (NEGATIVE) 03/03/19 02:50 Urine Bilirubin NEGATIVE (NEGATIVE) 03/03/19 02:50 Urine Urobilinogen 0.2 E.U./dL (0.2 - 1.0) 03/03/19 02:50 Ur Leukocyte Esterase NEGATIVE (NEGATIVE) 03/03/19 02:50 Urine RBC 5-10 /hpf (0-5) H 03/03/19 02:50 Urine WBC 6-10 /hpf (0-5) 03/03/19 02:50 Ur Epithelial Cells RARE /lpf (FEW) 03/03/19 02:50 Urine Bacteria FEW /hpf (NONE SEEN) 03/03/19 02:50 Urine Opiates Screen NEGATIVE (NEGATIVE) 03/03/19 02:50 Urine Methadone Screen NEGATIVE (NEGATIVE) 03/03/19 02:50 Ur Barbiturates Screen NEGATIVE (NEGATIVE) 03/03/19 02:50 Ur Tricyclics Screen NEGATIVE (NEGATIVE) 03/03/19 02:50 Ur Phencyclidine Scrn NEGATIVE (NEGATIVE) 03/03/19 02:50 Amphetamines Screen POSITIVE (NEGATIVE) H 03/03/19 02:50 U Methamphetamines Scrn NEGATIVE (NEGATIVE) 03/03/19 02:50 U Benzodiazepines Scrn NEGATIVE (NEGATIVE) 03/03/19 02:50 U Cocaine Metab Screen NEGATIVE (NEGATIVE) 03/03/19 02:50 U Cannabinoids Screen NEGATIVE (NEGATIVE) 03/03/19 02:50 - Physical Exam Vitals and I&O: Vital Signs Temp 97.2 F 03/14/19 06:54 Pulse 90 03/14/19 06:54 Resp 20 03/14/19 06:54 BP 157/87 03/14/19 06:54 Pulse Ox 98 03/14/19 06:54 Intake & Output 03/13/19 03/14/19 03/14/19 18:59 06:59 18:59 Intake Total 1300 480 Balance 1300 480 Intake: Oral 1300 480 Other: # Voids 3 3 # Bowel Movements 0 0 Stool Characteristics Formed Active Medications: Current Medications Acetaminophen (Tylenol) 650 mg PO Q4HR PRN PRN Reason: Mild Pain / Temp above 100 Stop: 05/05/19 21:06 Last Admin: 03/13/19 02:57 Dose: 650 mg Divalproex Sodium (Depakote Er) 500 mg PO BID [facility]; Protocol Stop: 05/10/19 16:59 Last Admin: 03/14/19 08:34 Dose: Not Given Lorazepam (Ativan) 0.5 mg PO Q4HR PRN; Protocol PRN Reason: Anxiety Stop: 04/05/19 21:07 Last Admin: 03/13/19 16:50 Dose: 0.5 mg Mirtazapine (Remeron) 7.5 mg PO HS [facility]; Protocol Stop: 05/06/19 20:59 Last Admin: 03/13/19 21:37 Dose: 7.5 mg Quetiapine Fumarate (Seroquel) 200 mg PO BID [facility]; Protocol Stop: 05/11/19 16:59 Last Admin: 03/14/19 08:35 Dose: 200 mg Zolpidem Tartrate (Ambien) 5 mg PO HS PRN PRN Reason: Insomnia Stop: 05/05/19 21:07 Last Admin: 03/13/19 21:28 Dose: 5 mg Physical Exam: Patient is still very anxious and in an aggressive mood. General: NAD, other (Anxious.) HEENT: NC/AT, PERRLA Neck: Supple, No JVD, No LAD Lungs: CTAB Cardiovascular: RRR, Normal S1, Normal S2 Abdomen: soft, non-tender, non-distended Extremities: clear Neurological: no change Internal Medicine Assmt/Plan - Assessment Assessment: Schizoaffective disorder. Polysubstance abuse. Bipolar. Hypertension. Osteoarthritis. - Plan Plan: Continuation of care. Monitor Labs. Continue present meds as directed. Monitor vitals, Continue Blood pressure meds as directed. Monitor Diet/Nutritional support. Psych management per Psych. Pain Management. PT/OT prn. Safety precaution. Supportive care. Fall precaution, frequent nursing rounds, and as needed restraints to prevent fall. Continue collaborating with consulting specialists, case management and nursing team. Will Monitor patient and continue present care management. Nutritional Asmnt/Malnutr-PDOC - Dietary Evaluation Malnutrition Findings (Please click <Entered> for more info): Nutritional Asmnt/Malnutrition Start: 03/12/19 14: 50 Text: Status: Complete Freq: Protocol: Document 03/12/19 14:50 SILKE (Rec: 03/12/19 14:53 SILKE [email or web address]) Nutritional Asmnt/Malnutrition Patient General Information Nutritional Screening Low Risk Diagnosis Psychosis Pertinent Medical Hx/Surgical Hx Unremarkable (per H&P Report) Subjective Information Pt is a 63-year-old male admitted on 03/06 d/t aggression and agitation. Pt is homeless and admits to using illicit drugs. Pt has eaten well since admission, meeting all nutritional needs. HT: 59 WT: 210 LB (95.45 kg) ABW: 173 LB (78.47 kg) BMI: 31.01 (Obese) GI: WNL, Soft, Round, Non- tender BM: Not noted I/O: 240/Not Noted Skin: WNL, dryness John: 20 Diet Order: Regular Estimated Energy Needs: ( Geriatric, ABW) 0660-4800 kcals (25-30 kcals/ kg) 78-94g Pro (1.0-1.2 g/kg) 0559-7120 ml (25-30 ml/kg) Pt is eating 100% of meals Per Meal/Nutrition Activity Record. Dietary is currently providing an estimated 3170 kcals and 140 gm Pro to meet 100+% kcal and 100+% Pro needs . Current Diet Order/ Nutrition Support Regular Pertinent Medications No pertinent medications Pertinent Labs 03/05: Glucose 120, T Bili 0.2, Alb 3.6 Nutritional Hx/Data Height 1.75 m Height (Calculated Centimeters) 175.3 Current Weight (lbs) 95.254 kg Weight (Calculated Kilograms) 95.3 Weight (Calculated Grams) 67579.4 [place] Body Weight 160 LB (72.73 kg) % [place] Body Weight 131 Body Mass Index (BMI) 31.0 Weight Status Obese GI Symptoms GI Symptoms None Last BM Not noted Skin Integrity/Comment: Skin: WNL, dryness John: 20 Current %PO Good (75-100%) Estimated Nutritional Goals BEE in Kcals: Adj wt of IBW Calories/Kcals/Kg 25-30 Kcals Calculated 7968-0904 Protein: Adj wt of IBW Protein g/k.0-1.2 Protein Calculated 78-94 Fluid: ml 5268-1663 ml (25-30 ml/kg) Nutritional Problem 1. Problem Problem Poor nutrition quality of life Etiology r/t Pt being homeless Signs/Symptoms: aeb BMI 31.01 and Pt self- report. Malnutrition Related to Morbid Obesity Malnutrition related to morbid obesity No Intervention/Recommendation Comments Continue with Regular diet as ordered. Expected Outcomes/Goals Expected Outcomes/Goals 1. PO intake to continue to meet 75% of nutritional needs. 2. Monitor PO intake, wt, nutrition related labs, and skin integrity. 3. F/U as low risk in 7 days, 03/19
--- NOTE | 2019-03-14 13:39 | Progress Notes ---
DATE: 03/14/2019 Case was discussed with staff of the patient, reviewed records. The patient continues to have poor insight, unpredictable, impulsive, acting out sometimes, resistant to self-care. He is sleeping better, eating better. No side effects to the medication, no sedation, no nausea, no extrapyramidal symptoms. I did increase his Seroquel to 200 mg twice a day and ordered his Depakote level to be checked to make sure he is compliant with the medication and he is taking the right dose. We will continue to work with the patient in group therapy, milieu therapy, and adjust the medication as needed. JOB# [id number]
--- NOTE | 2019-03-15 16:15 | General Progress Note ---
Objective - Results Result Diagrams: 03/05/19 22:25 03/05/19 22:25 Recent Labs: Laboratory Last Values WBC 8.9 Th/cmm (4.8-10.8) 03/05/19 22:25 RBC 4.59 Mil/cmm (3.80-5.80) 03/05/19 22:25 Hgb 13.9 gm/dL (12-16) 03/05/19 22:25 Hct 41.9 % (41.0-60) 03/05/19 22:25 MCV 91.4 fl (80-99) 03/05/19 22:25 MCH 30.2 pg (27.0-31.0) 03/05/19 22:25 MCHC Differential 33.0 pg (28.0-36.0) 03/05/19 22:25 RDW 14.5 % (11.5-20.0) 03/05/19 22:25 Plt Count 228 Th/cmm (150-400) 03/05/19 22:25 MPV 8.3 fl 03/05/19 22:25 Neutrophils % 65.0 % (40.0-80.0) 03/05/19 22:25 Lymphocytes % 21.2 % (20.0-50.0) 03/05/19 22:25 Monocytes % 7.6 % (2.0-10.0) 03/05/19 22:25 Eosinophils % 2.9 % (0.0-5.0) 03/05/19 22:25 Basophils % 3.3 % (0.0-2.0) H 03/05/19 22:25 Sodium 137 mEq/L (136-145) 03/05/19 22:25 Potassium 4.1 mEq/L (3.5-5.1) 03/05/19 22:25 Chloride 101 mEq/L (98-107) 03/05/19 22:25 Carbon Dioxide 27.5 mEq/L (21.0-31.0) 03/05/19 22:25 Anion Gap 12.6 (7.0-16.0) 03/05/19 22:25 BUN 22 mg/dL (7-25) 03/05/19 22:25 Creatinine 0.7 mg/dL (0.7-1.3) 03/05/19 22:25 Est GFR ( Amer) > 60.0 ml/min (>90) 03/05/19 22:25 Est GFR (Non-Af Amer) > 60.0 ml/min 03/05/19 22:25 BUN/Creatinine Ratio 31.4 03/05/19 22:25 Glucose 120 mg/dL (70-105) H 03/05/19 22:25 POC Glucose 107 MG/DL (70 - 105) H 03/03/19 00:29 Whole Bld Lactic Acid 1.04 mmol/L (0.60-1.99) 03/02/19 22:20 Calcium 9.4 mg/dL (8.6-10.3) 03/05/19 22:25 Total Bilirubin 0.2 mg/dL (0.3-1.0) L 03/05/19 22:25 AST 26 U/L (13-39) 03/05/19 22:25 ALT 15 U/L (7-52) 03/05/19 22:25 Alkaline Phosphatase 46 U/L (34-104) 03/05/19 22:25 Troponin I 0.01 ng/mL (0.01-0.05) 03/05/19 22:25 Total Protein 6.7 gm/dL (6.0-8.3) 03/05/19 22:25 Albumin 3.6 gm/dL (4.2-5.5) L 03/05/19 22:25 Globulin 3.1 gm/dL 03/05/19 22:25 Albumin/Globulin Ratio 1.2 (1.0-1.8) 03/05/19 22:25 Urine Source CLEAN C 03/03/19 02:50 Urine Color YELLOW 03/03/19 02:50 Urine Clarity SLIGHT HAZY (CLEAR) 03/03/19 02:50 Urine pH 6.0 (4.6 - 8.0) 03/03/19 02:50 Ur Specific [place] >= 1.030 (1.005-1.030) 03/03/19 02:50 Urine Protein TRACE mg/dL (NEGATIVE) 03/03/19 02:50 Urine Glucose (UA) NEGATIVE mg/dL (NEGATIVE) 03/03/19 02:50 Urine Ketones NEGATIVE mg/dL (NEGATIVE) 03/03/19 02:50 Urine Blood TRACE (NEGATIVE) 03/03/19 02:50 Urine Nitrate NEGATIVE (NEGATIVE) 03/03/19 02:50 Urine Bilirubin NEGATIVE (NEGATIVE) 03/03/19 02:50 Urine Urobilinogen 0.2 E.U./dL (0.2 - 1.0) 03/03/19 02:50 Ur Leukocyte Esterase NEGATIVE (NEGATIVE) 03/03/19 02:50 Urine RBC 5-10 /hpf (0-5) H 03/03/19 02:50 Urine WBC 6-10 /hpf (0-5) 03/03/19 02:50 Ur Epithelial Cells RARE /lpf (FEW) 03/03/19 02:50 Urine Bacteria FEW /hpf (NONE SEEN) 03/03/19 02:50 Urine Opiates Screen NEGATIVE (NEGATIVE) 03/03/19 02:50 Urine Methadone Screen NEGATIVE (NEGATIVE) 03/03/19 02:50 Ur Barbiturates Screen NEGATIVE (NEGATIVE) 03/03/19 02:50 Ur Tricyclics Screen NEGATIVE (NEGATIVE) 03/03/19 02:50 Ur Phencyclidine Scrn NEGATIVE (NEGATIVE) 03/03/19 02:50 Amphetamines Screen POSITIVE (NEGATIVE) H 03/03/19 02:50 U Methamphetamines Scrn NEGATIVE (NEGATIVE) 03/03/19 02:50 U Benzodiazepines Scrn NEGATIVE (NEGATIVE) 03/03/19 02:50 U Cocaine Metab Screen NEGATIVE (NEGATIVE) 03/03/19 02:50 U Cannabinoids Screen NEGATIVE (NEGATIVE) 03/03/19 02:50 - Physical Exam Vitals and I&O: Vital Signs Temp 98.0 F 03/15/19 14:00 Pulse 94 03/15/19 14:00 Resp 20 03/15/19 14:00 BP 163/99 03/15/19 14:00 Pulse Ox 97 03/15/19 14:00 Intake & Output 03/14/19 03/15/19 03/15/19 18:59 06:59 18:59 Intake Total 1500 240 Balance 1500 240 Intake: Oral 1500 240 Other: # Voids 3 2 # Bowel Movements 0 Stool Characteristics Formed Formed Active Medications: Current Medications Acetaminophen (Tylenol) 650 mg PO Q4HR PRN PRN Reason: Mild Pain / Temp above 100 Stop: 05/05/19 21:06 Last Admin: 03/15/19 14:17 Dose: 650 mg Divalproex Sodium (Depakote Er) 500 mg PO BID JENISE; Protocol Stop: 05/10/19 16:59 Last Admin: 03/15/19 08:23 Dose: 500 mg Lorazepam (Ativan) 0.5 mg PO Q4HR PRN; Protocol PRN Reason: Anxiety Stop: 04/05/19 21:07 Last Admin: 03/15/19 08:24 Dose: 0.5 mg Mirtazapine (Remeron) 7.5 mg PO HS JENISE; Protocol Stop: 05/06/19 20:59 Last Admin: 03/14/19 22:52 Dose: 7.5 mg Quetiapine Fumarate (Seroquel) 200 mg PO BID JENISE; Protocol Stop: 05/11/19 16:59 Last Admin: 03/15/19 08:23 Dose: 200 mg Zolpidem Tartrate (Ambien) 5 mg PO HS PRN PRN Reason: Insomnia Stop: 05/05/19 21:07 Last Admin: 03/15/19 00:35 Dose: 5 mg Physical Exam: Patient is still very anxious and in an aggressive mood. Assessment/Plan - Assessment Assessment: Schizoaffective disorder. Polysubstance abuse. Bipolar. Hypertension. Osteoarthritis. - Plan Plan: Continuation of care. Monitor Labs. Continue present meds as directed. Monitor vitals, Continue Blood pressure meds as directed. Monitor Diet/Nutritional support. Psych management per Psych. Pain Management. PT/OT prn. Safety precaution. Supportive care. Fall precaution, frequent nursing rounds, and as needed restraints to prevent fall. Continue collaborating with consulting specialists, case management and nursing team. Will Monitor patient and continue present care management. Nutritional Asmnt/Malnutr-PDOC - Dietary Evaluation Malnutrition Findings (Please click <Entered> for more info): Nutritional Asmnt/Malnutrition Start: 03/12/19 14: 50 Text: Status: Complete Freq: Protocol: Document 03/12/19 14:50 SILKE (Rec: 03/12/19 14:53 SILKE [email or web address]) Nutritional Asmnt/Malnutrition Patient General Information Nutritional Screening Low Risk Diagnosis Psychosis Pertinent Medical Hx/Surgical Hx Unremarkable (per H&P Report) Subjective Information Pt is a 63-year-old male admitted on 03/06 d/t aggression and agitation. Pt is homeless and admits to using illicit drugs. Pt has eaten well since admission, meeting all nutritional needs. HT: 59 WT: 210 LB (95.45 kg) ABW: 173 LB (78.47 kg) BMI: 31.01 (Obese) GI: WNL, Soft, Round, Non- tender BM: Not noted I/O: 240/Not Noted Skin: WNL, dryness John: 20 Diet Order: Regular Estimated Energy Needs: ( Geriatric, ABW) 0764-8640 kcals (25-30 kcals/ kg) 78-94g Pro (1.0-1.2 g/kg) 8983-8617 ml (25-30 ml/kg) Pt is eating 100% of meals Per Meal/Nutrition Activity Record. Dietary is currently providing an estimated 3170 kcals and 140 gm Pro to meet 100+% kcal and 100+% Pro needs . Current Diet Order/ Nutrition Support Regular Pertinent Medications No pertinent medications Pertinent Labs 03/05: Glucose 120, T Bili 0.2, Alb 3.6 Nutritional Hx/Data Height 1.75 m Height (Calculated Centimeters) 175.3 Current Weight (lbs) 95.254 kg Weight (Calculated Kilograms) 95.3 Weight (Calculated Grams) 60730.4 [place] Body Weight 160 LB (72.73 kg) % [place] Body Weight 131 Body Mass Index (BMI) 31.0 Weight Status Obese GI Symptoms GI Symptoms None Last BM Not noted Skin Integrity/Comment: Skin: WNL, dryness John: 20 Current %PO Good (75-100%) Estimated Nutritional Goals BEE in Kcals: Adj wt of IBW Calories/Kcals/Kg 25-30 Kcals Calculated 2067-8739 Protein: Adj wt of IBW Protein g/k.0-1.2 Protein Calculated 78-94 Fluid: ml 8630-3746 ml (25-30 ml/kg) Nutritional Problem 1. Problem Problem Poor nutrition quality of life Etiology r/t Pt being homeless Signs/Symptoms: aeb BMI 31.01 and Pt self- report. Malnutrition Related to Morbid Obesity Malnutrition related to morbid obesity No Intervention/Recommendation Comments Continue with Regular diet as ordered. Expected Outcomes/Goals Expected Outcomes/Goals 1. PO intake to continue to meet 75% of nutritional needs. 2. Monitor PO intake, wt, nutrition related labs, and skin integrity. 3. F/U as low risk in 7 days, 03/19
--- NOTE | 2019-03-15 19:05 | Internal Medicine Prog Note ---
Internal Medicine Subjective - Subjective Service Date: 03/15/19 Patient seen and examined:: with staff Patient is:: awake, verbal, interactive, agitated Patient Complaints of:: other (Is still very Anxious and agressive mood.) Per staff patient has:: no adverse event, no episodes of fall Internal Medicine Objective - Results Result Diagrams: 03/05/19 22:25 03/05/19 22:25 Recent Labs: Laboratory Last Values WBC 8.9 Th/cmm (4.8-10.8) 03/05/19 22:25 RBC 4.59 Mil/cmm (3.80-5.80) 03/05/19 22:25 Hgb 13.9 gm/dL (12-16) 03/05/19 22:25 Hct 41.9 % (41.0-60) 03/05/19 22:25 MCV 91.4 fl (80-99) 03/05/19 22:25 MCH 30.2 pg (27.0-31.0) 03/05/19 22:25 MCHC Differential 33.0 pg (28.0-36.0) 03/05/19 22:25 RDW 14.5 % (11.5-20.0) 03/05/19 22:25 Plt Count 228 Th/cmm (150-400) 03/05/19 22:25 MPV 8.3 fl 03/05/19 22:25 Neutrophils % 65.0 % (40.0-80.0) 03/05/19 22:25 Lymphocytes % 21.2 % (20.0-50.0) 03/05/19 22:25 Monocytes % 7.6 % (2.0-10.0) 03/05/19 22:25 Eosinophils % 2.9 % (0.0-5.0) 03/05/19 22:25 Basophils % 3.3 % (0.0-2.0) H 03/05/19 22:25 Sodium 137 mEq/L (136-145) 03/05/19 22:25 Potassium 4.1 mEq/L (3.5-5.1) 03/05/19 22:25 Chloride 101 mEq/L (98-107) 03/05/19 22:25 Carbon Dioxide 27.5 mEq/L (21.0-31.0) 03/05/19 22:25 Anion Gap 12.6 (7.0-16.0) 03/05/19 22:25 BUN 22 mg/dL (7-25) 03/05/19 22:25 Creatinine 0.7 mg/dL (0.7-1.3) 03/05/19 22:25 Est GFR ( Amer) > 60.0 ml/min (>90) 03/05/19 22:25 Est GFR (Non-Af Amer) > 60.0 ml/min 03/05/19 22:25 BUN/Creatinine Ratio 31.4 03/05/19 22:25 Glucose 120 mg/dL (70-105) H 03/05/19 22:25 POC Glucose 107 MG/DL (70 - 105) H 03/03/19 00:29 Whole Bld Lactic Acid 1.04 mmol/L (0.60-1.99) 03/02/19 22:20 Calcium 9.4 mg/dL (8.6-10.3) 03/05/19 22:25 Total Bilirubin 0.2 mg/dL (0.3-1.0) L 03/05/19 22:25 AST 26 U/L (13-39) 03/05/19 22:25 ALT 15 U/L (7-52) 03/05/19 22:25 Alkaline Phosphatase 46 U/L (34-104) 03/05/19 22:25 Troponin I 0.01 ng/mL (0.01-0.05) 03/05/19 22:25 Total Protein 6.7 gm/dL (6.0-8.3) 03/05/19 22:25 Albumin 3.6 gm/dL (4.2-5.5) L 03/05/19 22:25 Globulin 3.1 gm/dL 03/05/19 22:25 Albumin/Globulin Ratio 1.2 (1.0-1.8) 03/05/19 22:25 Urine Source CLEAN C 03/03/19 02:50 Urine Color YELLOW 03/03/19 02:50 Urine Clarity SLIGHT HAZY (CLEAR) 03/03/19 02:50 Urine pH 6.0 (4.6 - 8.0) 03/03/19 02:50 Ur Specific [place] >= 1.030 (1.005-1.030) 03/03/19 02:50 Urine Protein TRACE mg/dL (NEGATIVE) 03/03/19 02:50 Urine Glucose (UA) NEGATIVE mg/dL (NEGATIVE) 03/03/19 02:50 Urine Ketones NEGATIVE mg/dL (NEGATIVE) 03/03/19 02:50 Urine Blood TRACE (NEGATIVE) 03/03/19 02:50 Urine Nitrate NEGATIVE (NEGATIVE) 03/03/19 02:50 Urine Bilirubin NEGATIVE (NEGATIVE) 03/03/19 02:50 Urine Urobilinogen 0.2 E.U./dL (0.2 - 1.0) 03/03/19 02:50 Ur Leukocyte Esterase NEGATIVE (NEGATIVE) 03/03/19 02:50 Urine RBC 5-10 /hpf (0-5) H 03/03/19 02:50 Urine WBC 6-10 /hpf (0-5) 03/03/19 02:50 Ur Epithelial Cells RARE /lpf (FEW) 03/03/19 02:50 Urine Bacteria FEW /hpf (NONE SEEN) 03/03/19 02:50 Urine Opiates Screen NEGATIVE (NEGATIVE) 03/03/19 02:50 Urine Methadone Screen NEGATIVE (NEGATIVE) 03/03/19 02:50 Ur Barbiturates Screen NEGATIVE (NEGATIVE) 03/03/19 02:50 Ur Tricyclics Screen NEGATIVE (NEGATIVE) 03/03/19 02:50 Ur Phencyclidine Scrn NEGATIVE (NEGATIVE) 03/03/19 02:50 Amphetamines Screen POSITIVE (NEGATIVE) H 03/03/19 02:50 U Methamphetamines Scrn NEGATIVE (NEGATIVE) 03/03/19 02:50 U Benzodiazepines Scrn NEGATIVE (NEGATIVE) 03/03/19 02:50 U Cocaine Metab Screen NEGATIVE (NEGATIVE) 03/03/19 02:50 U Cannabinoids Screen NEGATIVE (NEGATIVE) 03/03/19 02:50 - Physical Exam Vitals and I&O: Vital Signs Temp 98.0 F 03/15/19 14:00 Pulse 94 03/15/19 14:00 Resp 20 03/15/19 14:00 BP 163/99 03/15/19 14:00 Pulse Ox 97 03/15/19 14:00 Intake & Output 03/15/19 03/15/19 03/16/19 06:59 18:59 06:59 Intake Total 240 1000 Balance 240 1000 Intake: Oral 240 1000 Other: # Voids 2 4 # Bowel Movements 1 Stool Characteristics Formed Active Medications: Current Medications Acetaminophen (Tylenol) 650 mg PO Q4HR PRN PRN Reason: Mild Pain / Temp above 100 Stop: 05/05/19 21:06 Last Admin: 03/15/19 14:17 Dose: 650 mg Divalproex Sodium (Depakote Er) 500 mg PO BID JENISE; Protocol Stop: 05/10/19 16:59 Last Admin: 03/15/19 16:52 Dose: 500 mg Lorazepam (Ativan) 0.5 mg PO Q4HR PRN; Protocol PRN Reason: Anxiety Stop: 04/05/19 21:07 Last Admin: 03/15/19 08:24 Dose: 0.5 mg Mirtazapine (Remeron) 7.5 mg PO HS JENISE; Protocol Stop: 05/06/19 20:59 Last Admin: 03/14/19 22:52 Dose: 7.5 mg Quetiapine Fumarate (Seroquel) 200 mg PO BID JENISE; Protocol Stop: 05/11/19 16:59 Last Admin: 03/15/19 17:31 Dose: 200 mg Zolpidem Tartrate (Ambien) 5 mg PO HS PRN PRN Reason: Insomnia Stop: 05/05/19 21:07 Last Admin: 03/15/19 00:35 Dose: 5 mg Physical Exam: Patient remains anxious and is aggressive. General: NAD, other (Anxious.) HEENT: NC/AT, PERRLA Neck: Supple, No JVD, No LAD Lungs: CTAB Cardiovascular: RRR, Normal S1, Normal S2 Abdomen: soft, non-tender, non-distended Extremities: clear Neurological: no change Internal Medicine Assmt/Plan - Assessment Assessment: Schizoaffective disorder. Polysubstance abuse. Bipolar. Hypertension. Osteoarthritis. - Plan Plan: Continuation of care. Monitor Labs. Continue present meds as directed. Monitor vitals, Continue Blood pressure meds as directed. Monitor Diet/Nutritional support. Psych management per Psych. Pain Management. PT/OT prn. Safety precaution. Supportive care. Fall precaution, frequent nursing rounds, and as needed restraints to prevent fall. Continue collaborating with consulting specialists, case management and nursing team. Will Monitor patient and continue present care management. Nutritional Asmnt/Malnutr-PDOC - Dietary Evaluation Malnutrition Findings (Please click <Entered> for more info): Nutritional Asmnt/Malnutrition Start: 03/12/19 14: 50 Text: Status: Complete Freq: Protocol: Document 03/12/19 14:50 SILKE (Rec: 03/12/19 14:53 SILKE [email or web address]) Nutritional Asmnt/Malnutrition Patient General Information Nutritional Screening Low Risk Diagnosis Psychosis Pertinent Medical Hx/Surgical Hx Unremarkable (per H&P Report) Subjective Information Pt is a 63-year-old male admitted on 03/06 d/t aggression and agitation. Pt is homeless and admits to using illicit drugs. Pt has eaten well since admission, meeting all nutritional needs. HT: 59 WT: 210 LB (95.45 kg) ABW: 173 LB (78.47 kg) BMI: 31.01 (Obese) GI: WNL, Soft, Round, Non- tender BM: Not noted I/O: 240/Not Noted Skin: WNL, dryness John: 20 Diet Order: Regular Estimated Energy Needs: ( Geriatric, ABW) 9456-6579 kcals (25-30 kcals/ kg) 78-94g Pro (1.0-1.2 g/kg) 5729-8366 ml (25-30 ml/kg) Pt is eating 100% of meals Per Meal/Nutrition Activity Record. Dietary is currently providing an estimated 3170 kcals and 140 gm Pro to meet 100+% kcal and 100+% Pro needs . Current Diet Order/ Nutrition Support Regular Pertinent Medications No pertinent medications Pertinent Labs 03/05: Glucose 120, T Bili 0.2, Alb 3.6 Nutritional Hx/Data Height 1.75 m Height (Calculated Centimeters) 175.3 Current Weight (lbs) 95.254 kg Weight (Calculated Kilograms) 95.3 Weight (Calculated Grams) 08135.4 [place] Body Weight 160 LB (72.73 kg) % [place] Body Weight 131 Body Mass Index (BMI) 31.0 Weight Status Obese GI Symptoms GI Symptoms None Last BM Not noted Skin Integrity/Comment: Skin: WNL, dryness John: 20 Current %PO Good (75-100%) Estimated Nutritional Goals BEE in Kcals: Adj wt of IBW Calories/Kcals/Kg 25-30 Kcals Calculated 8608-9467 Protein: Adj wt of IBW Protein g/k.0-1.2 Protein Calculated 78-94 Fluid: ml 0337-9812 ml (25-30 ml/kg) Nutritional Problem 1. Problem Problem Poor nutrition quality of life Etiology r/t Pt being homeless Signs/Symptoms: aeb BMI 31.01 and Pt self- report. Malnutrition Related to Morbid Obesity Malnutrition related to morbid obesity No Intervention/Recommendation Comments Continue with Regular diet as ordered. Expected Outcomes/Goals Expected Outcomes/Goals 1. PO intake to continue to meet 75% of nutritional needs. 2. Monitor PO intake, wt, nutrition related labs, and skin integrity. 3. F/U as low risk in 7 days, 03/19
--- NOTE | 2019-03-15 21:02 | Progress Notes ---
DATE: 03/15/2019 Dr. Mas covering for Dr. Goldstein. SUBJECTIVE: Chart reviewed and the patient interviewed. Also discussed the patient's condition with the staff and reviewed records and labs. The patient is still in irritable and angry mood and is still pacing up and down the unit in a confused and angry state of mind. The patient also is restless and is having difficulty cooperating with staff. The patient also still has mood swings. Otherwise, the patient is compliant with taking his medications and no side effects of medications. ASSESSMENT: The patient is still agitated and in irritable mood. TREATMENT PLAN: Continue to monitor behavior and condition closely and continue adjusting psychotropic medications and followup. [facility]# [id number]
[2019-03-16 06:42] LABS: % BASOPHILS 0.4 % (0.0-2.0); % EOSINOPHILS 4.8 % (0.0-5.0); % LYMPHOCYTES 24.6 % (20.0-50.0); % MONOCYTES 9.4 % (2.0-10.0); % NEUTROPHILS 60.8 % (40.0-80.0); EOSINOPHILE ABSOLUTE 0.4 Th/cmm (0.1-0.4); HEMATOCRIT 45.8 % (41.0-60); MEAN CELL VOLUME 92.5 fl (80-99); MEAN CORPUSCULAR HEMOGLOBIN 30.4 pg (27.0-31.0); MEAN CORPUSCULAR HGB CONC 32.8 pg (28.0-36.0); MONOCYTE ABSOLUTE 0.8 Th/cmm (0.3-1.0); NEUTROPHILE ABSOLUTE 4.8 Th/cmm (1.8-8.0); PLATELET COUNT 224 Th/cmm (150-400); RED BLOOD COUNT 4.95 Mil/cmm (3.80-5.80)
--- NOTE | 2019-03-16 09:59 | Progress Notes ---
DATE: SUBJECTIVE: Chart was reviewed and the patient interviewed. Also, discussed the patient's condition with the staff and reviewed records and labs. The patient continued to be extremely irritable and extremely agitated. The patient also is yelling and screaming and constantly asking for cigarettes or food. Also, now starting to talk to the patient, he is yelling and screaming and is severely irritable and agitated. Also, still has severe mood swings and still has difficulty following directions. Also, threatening the staff and others and has to be given p.r.n. medications. ASSESSMENT: The patient is still psychotic and agitated and can be dangerous to others. TREATMENT PLAN: Continue monitoring behavior and work on behavioral modification as well as adjusting psychotropic medications. [facility]# [id number]
--- NOTE | 2019-03-16 15:29 | Internal Medicine Prog Note ---
Internal Medicine Subjective - Subjective Service Date: 03/16/19 Patient seen and examined:: with staff Patient is:: awake, verbal, interactive, agitated Patient Complaints of:: other (Is still very Anxious and agressive mood.) Per staff patient has:: no adverse event, no episodes of fall Internal Medicine Objective - Results Result Diagrams: 03/16/19 05:45 03/05/19 22:25 Recent Labs: Laboratory Last Values WBC 8.0 Th/cmm (4.8-10.8) 03/16/19 05:45 RBC 4.95 Mil/cmm (3.80-5.80) 03/16/19 05:45 Hgb 15.0 gm/dL (12-16) 03/16/19 05:45 Hct 45.8 % (41.0-60) 03/16/19 05:45 MCV 92.5 fl (80-99) 03/16/19 05:45 MCH 30.4 pg (27.0-31.0) 03/16/19 05:45 MCHC Differential 32.8 pg (28.0-36.0) 03/16/19 05:45 RDW 15.0 % (11.5-20.0) 03/16/19 05:45 Plt Count 224 Th/cmm (150-400) 03/16/19 05:45 MPV 8.9 fl 03/16/19 05:45 Neutrophils % 60.8 % (40.0-80.0) 03/16/19 05:45 Lymphocytes % 24.6 % (20.0-50.0) 03/16/19 05:45 Monocytes % 9.4 % (2.0-10.0) 03/16/19 05:45 Eosinophils % 4.8 % (0.0-5.0) 03/16/19 05:45 Basophils % 0.4 % (0.0-2.0) 03/16/19 05:45 Sodium 137 mEq/L (136-145) 03/05/19 22:25 Potassium 4.1 mEq/L (3.5-5.1) 03/05/19 22:25 Chloride 101 mEq/L (98-107) 03/05/19 22:25 Carbon Dioxide 27.5 mEq/L (21.0-31.0) 03/05/19 22:25 Anion Gap 12.6 (7.0-16.0) 03/05/19 22:25 BUN 22 mg/dL (7-25) 03/05/19 22:25 Creatinine 0.7 mg/dL (0.7-1.3) 03/05/19 22:25 Est GFR ( Amer) > 60.0 ml/min (>90) 03/05/19 22:25 Est GFR (Non-Af Amer) > 60.0 ml/min 03/05/19 22:25 BUN/Creatinine Ratio 31.4 03/05/19 22:25 Glucose 120 mg/dL (70-105) H 03/05/19 22:25 POC Glucose 107 MG/DL (70 - 105) H 03/03/19 00:29 Whole Bld Lactic Acid 1.04 mmol/L (0.60-1.99) 03/02/19 22:20 Calcium 9.4 mg/dL (8.6-10.3) 03/05/19 22:25 Total Bilirubin 0.2 mg/dL (0.3-1.0) L 03/05/19 22:25 AST 26 U/L (13-39) 03/05/19 22:25 ALT 15 U/L (7-52) 03/05/19 22:25 Alkaline Phosphatase 46 U/L (34-104) 03/05/19 22:25 Troponin I 0.01 ng/mL (0.01-0.05) 03/05/19 22:25 Total Protein 6.7 gm/dL (6.0-8.3) 03/05/19 22:25 Albumin 3.6 gm/dL (4.2-5.5) L 03/05/19 22:25 Globulin 3.1 gm/dL 03/05/19 22:25 Albumin/Globulin Ratio 1.2 (1.0-1.8) 03/05/19 22:25 Urine Source CLEAN C 03/03/19 02:50 Urine Color YELLOW 03/03/19 02:50 Urine Clarity SLIGHT HAZY (CLEAR) 03/03/19 02:50 Urine pH 6.0 (4.6 - 8.0) 03/03/19 02:50 Ur Specific [place] >= 1.030 (1.005-1.030) 03/03/19 02:50 Urine Protein TRACE mg/dL (NEGATIVE) 03/03/19 02:50 Urine Glucose (UA) NEGATIVE mg/dL (NEGATIVE) 03/03/19 02:50 Urine Ketones NEGATIVE mg/dL (NEGATIVE) 03/03/19 02:50 Urine Blood TRACE (NEGATIVE) 03/03/19 02:50 Urine Nitrate NEGATIVE (NEGATIVE) 03/03/19 02:50 Urine Bilirubin NEGATIVE (NEGATIVE) 03/03/19 02:50 Urine Urobilinogen 0.2 E.U./dL (0.2 - 1.0) 03/03/19 02:50 Ur Leukocyte Esterase NEGATIVE (NEGATIVE) 03/03/19 02:50 Urine RBC 5-10 /hpf (0-5) H 03/03/19 02:50 Urine WBC 6-10 /hpf (0-5) 03/03/19 02:50 Ur Epithelial Cells RARE /lpf (FEW) 03/03/19 02:50 Urine Bacteria FEW /hpf (NONE SEEN) 03/03/19 02:50 Urine Opiates Screen NEGATIVE (NEGATIVE) 03/03/19 02:50 Urine Methadone Screen NEGATIVE (NEGATIVE) 03/03/19 02:50 Ur Barbiturates Screen NEGATIVE (NEGATIVE) 03/03/19 02:50 Ur Tricyclics Screen NEGATIVE (NEGATIVE) 03/03/19 02:50 Ur Phencyclidine Scrn NEGATIVE (NEGATIVE) 03/03/19 02:50 Amphetamines Screen POSITIVE (NEGATIVE) H 03/03/19 02:50 U Methamphetamines Scrn NEGATIVE (NEGATIVE) 03/03/19 02:50 U Benzodiazepines Scrn NEGATIVE (NEGATIVE) 03/03/19 02:50 U Cocaine Metab Screen NEGATIVE (NEGATIVE) 03/03/19 02:50 U Cannabinoids Screen NEGATIVE (NEGATIVE) 03/03/19 02:50 - Physical Exam Vitals and I&O: Vital Signs Temp 98.1 F 03/15/19 20:00 Pulse 101 03/15/19 20:00 Resp 18 03/16/19 08:00 BP 164/98 03/15/19 20:00 Pulse Ox 96 03/15/19 20:00 Intake & Output 03/15/19 03/16/19 03/16/19 18:59 06:59 18:59 Intake Total 1000 120 Balance 1000 120 Intake: Oral 1000 120 Other: # Voids 4 3 # Bowel Movements 1 Stool Characteristics Formed Formed Active Medications: Current Medications Acetaminophen (Tylenol) 650 mg PO Q4HR PRN PRN Reason: Mild Pain / Temp above 100 Stop: 05/05/19 21:06 Last Admin: 03/15/19 14:17 Dose: 650 mg Divalproex Sodium (Depakote Er) 500 mg PO BID JENISE; Protocol Stop: 05/10/19 16:59 Last Admin: 03/16/19 08:28 Dose: 500 mg Lorazepam (Ativan) 0.5 mg PO Q4HR PRN; Protocol PRN Reason: Anxiety Stop: 04/05/19 21:07 Last Admin: 03/15/19 08:24 Dose: 0.5 mg Mirtazapine (Remeron) 7.5 mg PO HS JENISE; Protocol Stop: 05/06/19 20:59 Last Admin: 03/15/19 20:56 Dose: 7.5 mg Quetiapine Fumarate (Seroquel) 200 mg PO BID JENISE; Protocol Stop: 05/11/19 16:59 Last Admin: 03/16/19 08:27 Dose: 200 mg Zolpidem Tartrate (Ambien) 5 mg PO HS PRN PRN Reason: Insomnia Stop: 05/05/19 21:07 Last Admin: 03/15/19 20:56 Dose: 5 mg Physical Exam: Patient is very agitated and Psychotic, Can be very dangerous to self and others , Continue to monitor. General: NAD, other (Anxious.) HEENT: NC/AT, PERRLA Neck: Supple, No JVD, No LAD Lungs: CTAB Cardiovascular: RRR, Normal S1, Normal S2 Abdomen: soft, non-tender, non-distended Extremities: clear Neurological: no change Internal Medicine Assmt/Plan - Assessment Assessment: Agitated. Psychosis. Schizoaffective disorder. Polysubstance abuse. Bipolar. Htn. Osteoarthritis. - Plan Plan: Continuation of care. Monitor Labs. Continue present meds as directed. Monitor vitals, Continue B/P meds as directed. Monitor Diet/Nutritional support. Psych management per Psych. Pain Management. Physical therapy. Occupational therapy. Fall precaution, frequent nursing rounds, and as needed restraints to prevent fall. Safety precaution. Supportive care. Continue collaborating with consulting specialists, case management and nursing team. Will Monitor patient and continue present care management. Nutritional Asmnt/Malnutr-PDOC - Dietary Evaluation Malnutrition Findings (Please click <Entered> for more info): Nutritional Asmnt/Malnutrition Start: 03/12/19 14: 50 Text: Status: Complete Freq: Protocol: Document 03/12/19 14:50 SILKE (Rec: 03/12/19 14:53 SILKE [id number]) Nutritional Asmnt/Malnutrition Patient General Information Nutritional Screening Low Risk Diagnosis Psychosis Pertinent Medical Hx/Surgical Hx Unremarkable (per H&P Report) Subjective Information Pt is a 63-year-old male admitted on 03/06 d/t aggression and agitation. Pt is homeless and admits to using illicit drugs. Pt has eaten well since admission, meeting all nutritional needs. HT: 59 WT: 210 LB (95.45 kg) ABW: 173 LB (78.47 kg) BMI: 31.01 (Obese) GI: WNL, Soft, Round, Non- tender BM: Not noted I/O: 240/Not Noted Skin: WNL, dryness John: 20 Diet Order: Regular Estimated Energy Needs: ( Geriatric, ABW) 0780-1974 kcals (25-30 kcals/ kg) 78-94g Pro (1.0-1.2 g/kg) 4037-2957 ml (25-30 ml/kg) Pt is eating 100% of meals Per Meal/Nutrition Activity Record. Dietary is currently providing an estimated 3170 kcals and 140 gm Pro to meet 100+% kcal and 100+% Pro needs . Current Diet Order/ Nutrition Support Regular Pertinent Medications No pertinent medications Pertinent Labs 03/05: Glucose 120, T Bili 0.2, Alb 3.6 Nutritional Hx/Data Height 1.75 m Height (Calculated Centimeters) 175.3 Current Weight (lbs) 95.254 kg Weight (Calculated Kilograms) 95.3 Weight (Calculated Grams) 71504.4 [place] Body Weight 160 LB (72.73 kg) % [place] Body Weight 131 Body Mass Index (BMI) 31.0 Weight Status Obese GI Symptoms GI Symptoms None Last BM Not noted Skin Integrity/Comment: Skin: WNL, dryness John: 20 Current %PO Good (75-100%) Estimated Nutritional Goals BEE in Kcals: Adj wt of IBW Calories/Kcals/Kg 25-30 Kcals Calculated 6540-5762 Protein: Adj wt of IBW Protein g/k.0-1.2 Protein Calculated 78-94 Fluid: ml 5164-6913 ml (25-30 ml/kg) Nutritional Problem 1. Problem Problem Poor nutrition quality of life Etiology r/t Pt being homeless Signs/Symptoms: aeb BMI 31.01 and Pt self- report. Malnutrition Related to Morbid Obesity Malnutrition related to morbid obesity No Intervention/Recommendation Comments Continue with Regular diet as ordered. Expected Outcomes/Goals Expected Outcomes/Goals 1. PO intake to continue to meet 75% of nutritional needs. 2. Monitor PO intake, wt, nutrition related labs, and skin integrity. 3. F/U as low risk in 7 days, 03/19
--- NOTE | 2019-03-17 10:09 | Diagnostic Imaging Report ---
Ultrasound scrotum HISTORY: Swollen scrotum, bilateral pain. Possible abnormality. Duration of symptoms for one year. COMPARISON: Previous testicular ultrasound 03/02/2019 Technique/procedure: Sonography of the scrotum and contents was performed in multiple planes. FINDINGS: The right testicle measures 4.3 x 2.7 x 2.8 cm demonstrates heterogeneous echotexture. No discrete focal lesions. The right epididymal head measures 1.4 cm. The left testicle measures 4.0 x 3.3 x 2.2 cm demonstrating heterogeneous echogenicity. No discrete focal lesions. The left epididymal head measures 1.0 cm. There is a heterogeneous area inferior to the testis possibly a hernia. This may be along the scrotal sac and left inguinal region. Small bilateral hydroceles are noted. Vascular flow to the testicles are noted. IMPRESSION: Indeterminate heterogeneous area which may be inferior to the testes. There may also be a left inguinal hernia. Other mass lesion such as neoplastic process is less likely. Recommend further clarification of these findings with physical exam and possible CT of the pelvis covering these areas. Small bilateral hydroceles. Heterogeneous testicles, nonspecific. Inflammatory process cannot be excluded. Vascular flow to both testicles noted.
--- NOTE | 2019-03-17 11:06 | Internal Medicine Prog Note ---
Internal Medicine Subjective - Subjective Service Date: 03/17/19 Patient seen and examined:: with staff Patient is:: awake, verbal, interactive, agitated Patient Complaints of:: other (Is still very Anxious and agressive mood.) Per staff patient has:: no adverse event, no episodes of fall Internal Medicine Objective - Results Result Diagrams: 03/16/19 05:45 03/05/19 22:25 Recent Labs: Laboratory Last Values WBC 8.0 Th/cmm (4.8-10.8) 03/16/19 05:45 RBC 4.95 Mil/cmm (3.80-5.80) 03/16/19 05:45 Hgb 15.0 gm/dL (12-16) 03/16/19 05:45 Hct 45.8 % (41.0-60) 03/16/19 05:45 MCV 92.5 fl (80-99) 03/16/19 05:45 MCH 30.4 pg (27.0-31.0) 03/16/19 05:45 MCHC Differential 32.8 pg (28.0-36.0) 03/16/19 05:45 RDW 15.0 % (11.5-20.0) 03/16/19 05:45 Plt Count 224 Th/cmm (150-400) 03/16/19 05:45 MPV 8.9 fl 03/16/19 05:45 Neutrophils % 60.8 % (40.0-80.0) 03/16/19 05:45 Lymphocytes % 24.6 % (20.0-50.0) 03/16/19 05:45 Monocytes % 9.4 % (2.0-10.0) 03/16/19 05:45 Eosinophils % 4.8 % (0.0-5.0) 03/16/19 05:45 Basophils % 0.4 % (0.0-2.0) 03/16/19 05:45 Sodium 137 mEq/L (136-145) 03/05/19 22:25 Potassium 4.1 mEq/L (3.5-5.1) 03/05/19 22:25 Chloride 101 mEq/L (98-107) 03/05/19 22:25 Carbon Dioxide 27.5 mEq/L (21.0-31.0) 03/05/19 22:25 Anion Gap 12.6 (7.0-16.0) 03/05/19 22:25 BUN 22 mg/dL (7-25) 03/05/19 22:25 Creatinine 0.7 mg/dL (0.7-1.3) 03/05/19 22:25 Est GFR ( Amer) > 60.0 ml/min (>90) 03/05/19 22:25 Est GFR (Non-Af Amer) > 60.0 ml/min 03/05/19 22:25 BUN/Creatinine Ratio 31.4 03/05/19 22:25 Glucose 120 mg/dL (70-105) H 03/05/19 22:25 POC Glucose 107 MG/DL (70 - 105) H 03/03/19 00:29 Whole Bld Lactic Acid 1.04 mmol/L (0.60-1.99) 03/02/19 22:20 Calcium 9.4 mg/dL (8.6-10.3) 03/05/19 22:25 Total Bilirubin 0.2 mg/dL (0.3-1.0) L 03/05/19 22:25 AST 26 U/L (13-39) 03/05/19 22:25 ALT 15 U/L (7-52) 03/05/19 22:25 Alkaline Phosphatase 46 U/L (34-104) 03/05/19 22:25 Troponin I 0.01 ng/mL (0.01-0.05) 03/05/19 22:25 Total Protein 6.7 gm/dL (6.0-8.3) 03/05/19 22:25 Albumin 3.6 gm/dL (4.2-5.5) L 03/05/19 22:25 Globulin 3.1 gm/dL 03/05/19 22:25 Albumin/Globulin Ratio 1.2 (1.0-1.8) 03/05/19 22:25 Urine Source CLEAN C 03/03/19 02:50 Urine Color YELLOW 03/03/19 02:50 Urine Clarity SLIGHT HAZY (CLEAR) 03/03/19 02:50 Urine pH 6.0 (4.6 - 8.0) 03/03/19 02:50 Ur Specific [place] >= 1.030 (1.005-1.030) 03/03/19 02:50 Urine Protein TRACE mg/dL (NEGATIVE) 03/03/19 02:50 Urine Glucose (UA) NEGATIVE mg/dL (NEGATIVE) 03/03/19 02:50 Urine Ketones NEGATIVE mg/dL (NEGATIVE) 03/03/19 02:50 Urine Blood TRACE (NEGATIVE) 03/03/19 02:50 Urine Nitrate NEGATIVE (NEGATIVE) 03/03/19 02:50 Urine Bilirubin NEGATIVE (NEGATIVE) 03/03/19 02:50 Urine Urobilinogen 0.2 E.U./dL (0.2 - 1.0) 03/03/19 02:50 Ur Leukocyte Esterase NEGATIVE (NEGATIVE) 03/03/19 02:50 Urine RBC 5-10 /hpf (0-5) H 03/03/19 02:50 Urine WBC 6-10 /hpf (0-5) 03/03/19 02:50 Ur Epithelial Cells RARE /lpf (FEW) 03/03/19 02:50 Urine Bacteria FEW /hpf (NONE SEEN) 03/03/19 02:50 Urine Opiates Screen NEGATIVE (NEGATIVE) 03/03/19 02:50 Urine Methadone Screen NEGATIVE (NEGATIVE) 03/03/19 02:50 Ur Barbiturates Screen NEGATIVE (NEGATIVE) 03/03/19 02:50 Ur Tricyclics Screen NEGATIVE (NEGATIVE) 03/03/19 02:50 Ur Phencyclidine Scrn NEGATIVE (NEGATIVE) 03/03/19 02:50 Amphetamines Screen POSITIVE (NEGATIVE) H 03/03/19 02:50 U Methamphetamines Scrn NEGATIVE (NEGATIVE) 03/03/19 02:50 U Benzodiazepines Scrn NEGATIVE (NEGATIVE) 03/03/19 02:50 U Cocaine Metab Screen NEGATIVE (NEGATIVE) 03/03/19 02:50 U Cannabinoids Screen NEGATIVE (NEGATIVE) 03/03/19 02:50 - Physical Exam Vitals and I&O: Vital Signs Temp 97 F 03/17/19 06:32 Pulse 102 03/17/19 06:32 Resp 20 03/17/19 06:32 BP 160/87 03/17/19 06:32 Pulse Ox 97 03/17/19 06:32 Intake & Output 03/16/19 03/17/19 03/17/19 18:59 06:59 18:59 Intake Total 900 120 Balance 900 120 Intake: Oral 900 120 Other: # Voids 4 3 # Bowel Movements 1 Stool Characteristics Formed Active Medications: Current Medications Acetaminophen (Tylenol) 650 mg PO Q4HR PRN PRN Reason: Mild Pain / Temp above 100 Stop: 05/05/19 21:06 Last Admin: 03/16/19 23:23 Dose: 650 mg Divalproex Sodium (Depakote Er) 500 mg PO BID JENISE; Protocol Stop: 05/10/19 16:59 Last Admin: 03/17/19 08:17 Dose: 500 mg Lorazepam (Ativan) 0.5 mg PO Q4HR PRN; Protocol PRN Reason: Anxiety Stop: 04/05/19 21:07 Last Admin: 03/17/19 08:18 Dose: 0.5 mg Mirtazapine (Remeron) 7.5 mg PO HS JENISE; Protocol Stop: 05/06/19 20:59 Last Admin: 03/16/19 21:16 Dose: 7.5 mg Quetiapine Fumarate (Seroquel) 200 mg PO BID JENISE; Protocol Stop: 05/11/19 16:59 Last Admin: 03/17/19 08:17 Dose: 200 mg Zolpidem Tartrate (Ambien) 5 mg PO HS PRN PRN Reason: Insomnia Stop: 05/05/19 21:07 Last Admin: 03/16/19 22:56 Dose: 5 mg Physical Exam: Patient is still agitated and Psychotic, Can be very dangerous to self and others, Continue to monitor. General: NAD, other (Anxious.) HEENT: NC/AT, PERRLA Neck: Supple, No JVD, No LAD Lungs: CTAB Cardiovascular: RRR, Normal S1, Normal S2 Abdomen: soft, non-tender, non-distended Extremities: clear Neurological: no change Internal Medicine Assmt/Plan - Assessment Assessment: Agitated. Psychosis. Schizoaffective disorder. Polysubstance abuse. Bipolar. Htn. Osteoarthritis. - Plan Plan: Continuation of care. Monitor Labs. Continue present meds as directed. Monitor vitals, Continue B/P meds as directed. Monitor Diet/Nutritional support. Psych management per Psych. Pain Management. Physical therapy. Occupational therapy. Fall precaution, frequent nursing rounds, and as needed restraints to prevent fall. Safety precaution. Supportive care. Continue collaborating with consulting specialists, case management and nursing team. Will Monitor patient and continue present care management. Nutritional Asmnt/Malnutr-PDOC - Dietary Evaluation Malnutrition Findings (Please click <Entered> for more info): Nutritional Asmnt/Malnutrition Start: 03/12/19 14: 50 Text: Status: Complete Freq: Protocol: Document 03/12/19 14:50 SILKE (Rec: 03/12/19 14:53 SILKE [id number]) Nutritional Asmnt/Malnutrition Patient General Information Nutritional Screening Low Risk Diagnosis Psychosis Pertinent Medical Hx/Surgical Hx Unremarkable (per H&P Report) Subjective Information Pt is a 63-year-old male admitted on 03/06 d/t aggression and agitation. Pt is homeless and admits to using illicit drugs. Pt has eaten well since admission, meeting all nutritional needs. HT: 59 WT: 210 LB (95.45 kg) ABW: 173 LB (78.47 kg) BMI: 31.01 (Obese) GI: WNL, Soft, Round, Non- tender BM: Not noted I/O: 240/Not Noted Skin: WNL, dryness John: 20 Diet Order: Regular Estimated Energy Needs: ( Geriatric, ABW) 6873-0501 kcals (25-30 kcals/ kg) 78-94g Pro (1.0-1.2 g/kg) 0067-6030 ml (25-30 ml/kg) Pt is eating 100% of meals Per Meal/Nutrition Activity Record. Dietary is currently providing an estimated 3170 kcals and 140 gm Pro to meet 100+% kcal and 100+% Pro needs . Current Diet Order/ Nutrition Support Regular Pertinent Medications No pertinent medications Pertinent Labs 03/05: Glucose 120, T Bili 0.2, Alb 3.6 Nutritional Hx/Data Height 1.75 m Height (Calculated Centimeters) 175.3 Current Weight (lbs) 95.254 kg Weight (Calculated Kilograms) 95.3 Weight (Calculated Grams) 30694.4 [place] Body Weight 160 LB (72.73 kg) % [place] Body Weight 131 Body Mass Index (BMI) 31.0 Weight Status Obese GI Symptoms GI Symptoms None Last BM Not noted Skin Integrity/Comment: Skin: WNL, dryness John: 20 Current %PO Good (75-100%) Estimated Nutritional Goals BEE in Kcals: Adj wt of IBW Calories/Kcals/Kg 25-30 Kcals Calculated 0554-1795 Protein: Adj wt of IBW Protein g/k.0-1.2 Protein Calculated 78-94 Fluid: ml 5874-7597 ml (25-30 ml/kg) Nutritional Problem 1. Problem Problem Poor nutrition quality of life Etiology r/t Pt being homeless Signs/Symptoms: aeb BMI 31.01 and Pt self- report. Malnutrition Related to Morbid Obesity Malnutrition related to morbid obesity No Intervention/Recommendation Comments Continue with Regular diet as ordered. Expected Outcomes/Goals Expected Outcomes/Goals 1. PO intake to continue to meet 75% of nutritional needs. 2. Monitor PO intake, wt, nutrition related labs, and skin integrity. 3. F/U as low risk in 7 days, 03/19
[2019-03-17] MEDS: Hydrocodone/APAP 5mg/325mg Tab PO PRN (23:56)
--- NOTE | 2019-03-18 00:40 | Progress Notes ---
DATE: 03/17/2019 Case was discussed with staff of the patient, reviewed records. The patient continues to be unpredictable, impulsive, and needing redirection. Continues to have poor insight, unable to make safe plan for self-care, easily agitated. He has no known drug allergy. He tolerates the increase in Seroquel to 200 mg 3 times a day with no side effects, no sedation, no nausea, or no extrapyramidal symptoms. We will be making further adjustment to 250 mg twice a day and no side effects with the medication, no sedation, no nausea, or no extrapyramidal symptoms. We will continue outpatient group therapy, milieu therapy, or adjust medication as needed. [facility]# [id number]
[2019-03-18] MEDS: Hydrocodone/APAP 5mg/325mg Tab PO PRN (16:24)
--- NOTE | 2019-03-18 16:24 | Internal Medicine Prog Note ---
Internal Medicine Subjective - Subjective Service Date: 03/18/19 Patient seen and examined:: with staff Patient is:: awake, verbal, interactive, agitated Patient Complaints of:: other (Is still very Anxious and agressive mood.) Per staff patient has:: no adverse event, no episodes of fall Internal Medicine Objective - Results Result Diagrams: 03/16/19 05:45 03/05/19 22:25 Recent Labs: Laboratory Last Values WBC 8.0 Th/cmm (4.8-10.8) 03/16/19 05:45 RBC 4.95 Mil/cmm (3.80-5.80) 03/16/19 05:45 Hgb 15.0 gm/dL (12-16) 03/16/19 05:45 Hct 45.8 % (41.0-60) 03/16/19 05:45 MCV 92.5 fl (80-99) 03/16/19 05:45 MCH 30.4 pg (27.0-31.0) 03/16/19 05:45 MCHC Differential 32.8 pg (28.0-36.0) 03/16/19 05:45 RDW 15.0 % (11.5-20.0) 03/16/19 05:45 Plt Count 224 Th/cmm (150-400) 03/16/19 05:45 MPV 8.9 fl 03/16/19 05:45 Neutrophils % 60.8 % (40.0-80.0) 03/16/19 05:45 Lymphocytes % 24.6 % (20.0-50.0) 03/16/19 05:45 Monocytes % 9.4 % (2.0-10.0) 03/16/19 05:45 Eosinophils % 4.8 % (0.0-5.0) 03/16/19 05:45 Basophils % 0.4 % (0.0-2.0) 03/16/19 05:45 Sodium 137 mEq/L (136-145) 03/05/19 22:25 Potassium 4.1 mEq/L (3.5-5.1) 03/05/19 22:25 Chloride 101 mEq/L (98-107) 03/05/19 22:25 Carbon Dioxide 27.5 mEq/L (21.0-31.0) 03/05/19 22:25 Anion Gap 12.6 (7.0-16.0) 03/05/19 22:25 BUN 22 mg/dL (7-25) 03/05/19 22:25 Creatinine 0.7 mg/dL (0.7-1.3) 03/05/19 22:25 Est GFR ( Amer) > 60.0 ml/min (>90) 03/05/19 22:25 Est GFR (Non-Af Amer) > 60.0 ml/min 03/05/19 22:25 BUN/Creatinine Ratio 31.4 03/05/19 22:25 Glucose 120 mg/dL (70-105) H 03/05/19 22:25 POC Glucose 107 MG/DL (70 - 105) H 03/03/19 00:29 Whole Bld Lactic Acid 1.04 mmol/L (0.60-1.99) 03/02/19 22:20 Calcium 9.4 mg/dL (8.6-10.3) 03/05/19 22:25 Total Bilirubin 0.2 mg/dL (0.3-1.0) L 03/05/19 22:25 AST 26 U/L (13-39) 03/05/19 22:25 ALT 15 U/L (7-52) 03/05/19 22:25 Alkaline Phosphatase 46 U/L (34-104) 03/05/19 22:25 Troponin I 0.01 ng/mL (0.01-0.05) 03/05/19 22:25 Total Protein 6.7 gm/dL (6.0-8.3) 03/05/19 22:25 Albumin 3.6 gm/dL (4.2-5.5) L 03/05/19 22:25 Globulin 3.1 gm/dL 03/05/19 22:25 Albumin/Globulin Ratio 1.2 (1.0-1.8) 03/05/19 22:25 Urine Source CLEAN C 03/03/19 02:50 Urine Color YELLOW 03/03/19 02:50 Urine Clarity SLIGHT HAZY (CLEAR) 03/03/19 02:50 Urine pH 6.0 (4.6 - 8.0) 03/03/19 02:50 Ur Specific [place] >= 1.030 (1.005-1.030) 03/03/19 02:50 Urine Protein TRACE mg/dL (NEGATIVE) 03/03/19 02:50 Urine Glucose (UA) NEGATIVE mg/dL (NEGATIVE) 03/03/19 02:50 Urine Ketones NEGATIVE mg/dL (NEGATIVE) 03/03/19 02:50 Urine Blood TRACE (NEGATIVE) 03/03/19 02:50 Urine Nitrate NEGATIVE (NEGATIVE) 03/03/19 02:50 Urine Bilirubin NEGATIVE (NEGATIVE) 03/03/19 02:50 Urine Urobilinogen 0.2 E.U./dL (0.2 - 1.0) 03/03/19 02:50 Ur Leukocyte Esterase NEGATIVE (NEGATIVE) 03/03/19 02:50 Urine RBC 5-10 /hpf (0-5) H 03/03/19 02:50 Urine WBC 6-10 /hpf (0-5) 03/03/19 02:50 Ur Epithelial Cells RARE /lpf (FEW) 03/03/19 02:50 Urine Bacteria FEW /hpf (NONE SEEN) 03/03/19 02:50 Urine Opiates Screen NEGATIVE (NEGATIVE) 03/03/19 02:50 Urine Methadone Screen NEGATIVE (NEGATIVE) 03/03/19 02:50 Ur Barbiturates Screen NEGATIVE (NEGATIVE) 03/03/19 02:50 Ur Tricyclics Screen NEGATIVE (NEGATIVE) 03/03/19 02:50 Ur Phencyclidine Scrn NEGATIVE (NEGATIVE) 03/03/19 02:50 Amphetamines Screen POSITIVE (NEGATIVE) H 03/03/19 02:50 U Methamphetamines Scrn NEGATIVE (NEGATIVE) 03/03/19 02:50 U Benzodiazepines Scrn NEGATIVE (NEGATIVE) 03/03/19 02:50 U Cocaine Metab Screen NEGATIVE (NEGATIVE) 03/03/19 02:50 U Cannabinoids Screen NEGATIVE (NEGATIVE) 03/03/19 02:50 - Physical Exam Vitals and I&O: Vital Signs Temp 98.2 F 03/18/19 14:00 Pulse 80 03/18/19 14:00 Resp 20 03/18/19 14:00 BP 155/89 03/18/19 14:00 Pulse Ox 98 03/18/19 14:00 Intake & Output 03/17/19 03/18/19 03/18/19 18:59 06:59 18:59 Intake Total 1000 240 Balance 1000 240 Weight (lbs) 95.254 kg Intake: Oral 1000 240 Other: # Voids 4 3 # Bowel Movements 1 0 Weight Source Bedscale Active Medications: Current Medications Acetaminophen (Tylenol) 650 mg PO Q4HR PRN PRN Reason: Mild Pain / Temp above 100 Stop: 05/05/19 21:06 Last Admin: 03/16/19 23:23 Dose: 650 mg Acetaminophen/Hydrocodone Bitart ([place] 5mg/325mg) 1 tab PO Q6H PRN PRN Reason: Pain (Moderate) Stop: 05/16/19 16:39 Last Admin: 03/17/19 23:56 Dose: 1 tab Divalproex Sodium (Depakote Er) 500 mg PO BID [facility]; Protocol Stop: 05/10/19 16:59 Last Admin: 03/18/19 08:35 Dose: 500 mg Lorazepam (Ativan) 0.5 mg PO Q4HR PRN; Protocol PRN Reason: Anxiety Stop: 04/05/19 21:07 Last Admin: 03/18/19 08:38 Dose: 0.5 mg Mirtazapine (Remeron) 7.5 mg PO HS [facility]; Protocol Stop: 05/06/19 20:59 Last Admin: 03/17/19 21:30 Dose: 7.5 mg Paroxetine HCl (Paxil) 20 mg PO DAILY [facility]; Protocol Stop: 05/18/19 08:59 Quetiapine Fumarate (Seroquel) 100 mg PO BID [facility] Stop: 05/17/19 16:59 Risperidone (Risperdal) 1 mg PO BID [facility]; Protocol Stop: 05/17/19 16:59 Zolpidem Tartrate (Ambien) 5 mg PO HS PRN PRN Reason: Insomnia Stop: 05/05/19 21:07 Last Admin: 03/17/19 22:45 Dose: 5 mg Physical Exam: Patient continues to be unpredictable and impulsive, needs redirection, Psychotic, Can be very dangerous to self and others, Continue to monitor. General: NAD, other (Anxious.) HEENT: NC/AT, PERRLA Neck: Supple, No JVD, No LAD Lungs: CTAB Cardiovascular: RRR, Normal S1, Normal S2 Abdomen: soft, non-tender, non-distended Extremities: clear Neurological: no change Internal Medicine Assmt/Plan - Assessment Assessment: Agitated. Psychosis. Schizoaffective disorder. Polysubstance abuse. Bipolar. Htn. Osteoarthritis. - Plan Plan: Continuation of care. Monitor Labs. Continue present meds as directed. Monitor vitals, Continue B/P meds as directed. Monitor Diet/Nutritional support. Psych management per Psych. Pain Management. Physical therapy. Occupational therapy. Fall precaution, frequent nursing rounds, and as needed restraints to prevent fall. Safety precaution. Supportive care. Continue collaborating with consulting specialists, case management and nursing team. Will Monitor patient and continue present care management. Nutritional Asmnt/Malnutr-PDOC - Dietary Evaluation Malnutrition Findings (Please click <Entered> for more info): Nutritional Asmnt/Malnutrition Start: 03/12/19 14: 50 Text: Status: Complete Freq: Protocol: Document 03/12/19 14:50 SILKE (Rec: 03/12/19 14:53 SILKE [email or web address]) Nutritional Asmnt/Malnutrition Patient General Information Nutritional Screening Low Risk Diagnosis Psychosis Pertinent Medical Hx/Surgical Hx Unremarkable (per H&P Report) Subjective Information Pt is a 63-year-old male admitted on 03/06 d/t aggression and agitation. Pt is homeless and admits to using illicit drugs. Pt has eaten well since admission, meeting all nutritional needs. HT: 59 WT: 210 LB (95.45 kg) ABW: 173 LB (78.47 kg) BMI: 31.01 (Obese) GI: WNL, Soft, Round, Non- tender BM: Not noted I/O: 240/Not Noted Skin: WNL, dryness John: 20 Diet Order: Regular Estimated Energy Needs: ( Geriatric, ABW) 4883-0556 kcals (25-30 kcals/ kg) 78-94g Pro (1.0-1.2 g/kg) 4316-8822 ml (25-30 ml/kg) Pt is eating 100% of meals Per Meal/Nutrition Activity Record. Dietary is currently providing an estimated 3170 kcals and 140 gm Pro to meet 100+% kcal and 100+% Pro needs . Current Diet Order/ Nutrition Support Regular Pertinent Medications No pertinent medications Pertinent Labs 03/05: Glucose 120, T Bili 0.2, Alb 3.6 Nutritional Hx/Data Height 1.75 m Height (Calculated Centimeters) 175.3 Current Weight (lbs) 95.254 kg Weight (Calculated Kilograms) 95.3 Weight (Calculated Grams) 91504.4 [place] Body Weight 160 LB (72.73 kg) % [place] Body Weight 131 Body Mass Index (BMI) 31.0 Weight Status Obese GI Symptoms GI Symptoms None Last BM Not noted Skin Integrity/Comment: Skin: WNL, dryness John: 20 Current %PO Good (75-100%) Estimated Nutritional Goals BEE in Kcals: Adj wt of IBW Calories/Kcals/Kg 25-30 Kcals Calculated 7137-5903 Protein: Adj wt of IBW Protein g/k.0-1.2 Protein Calculated 78-94 Fluid: ml 4476-3015 ml (25-30 ml/kg) Nutritional Problem 1. Problem Problem Poor nutrition quality of life Etiology r/t Pt being homeless Signs/Symptoms: aeb BMI 31.01 and Pt self- report. Malnutrition Related to Morbid Obesity Malnutrition related to morbid obesity No Intervention/Recommendation Comments Continue with Regular diet as ordered. Expected Outcomes/Goals Expected Outcomes/Goals 1. PO intake to continue to meet 75% of nutritional needs. 2. Monitor PO intake, wt, nutrition related labs, and skin integrity. 3. F/U as low risk in 7 days, 03/19
--- NOTE | 2019-03-18 20:13 | Progress Notes ---
DATE: 03/18/2019 Case was discussed with staff of the patient, reviewed records. The patient continues to have poor insight, continues to be rambling, unpredictable, impulsive, needing redirection. He reported to being on Paxil and he would like to be on Risperdal, so I will be adding Paxil to his medication. His sleep and appetite varies. Continues to isolate himself. Continues to have poor insight in general. No side effects with the medication, no sedation, no nausea, no extrapyramidal symptoms. I will be adding Paxil 20 mg daily. We will continue to work with the patient in group therapy, milieu therapy, and adjust the medication as needed. JOB# [id number]
[2019-03-19] MEDS: Hydrocodone/APAP 5mg/325mg Tab PO PRN (03:14)
--- NOTE | 2019-03-19 15:16 | Internal Medicine Prog Note ---
Internal Medicine Subjective - Subjective Service Date: 03/19/19 Patient is:: awake, verbal, interactive, agitated Patient Complaints of:: other (Is still very Anxious and agressive mood.) Per staff patient has:: no adverse event, no episodes of fall Internal Medicine Objective - Results Result Diagrams: 03/16/19 05:45 03/05/19 22:25 Recent Labs: Laboratory Last Values WBC 8.0 Th/cmm (4.8-10.8) 03/16/19 05:45 RBC 4.95 Mil/cmm (3.80-5.80) 03/16/19 05:45 Hgb 15.0 gm/dL (12-16) 03/16/19 05:45 Hct 45.8 % (41.0-60) 03/16/19 05:45 MCV 92.5 fl (80-99) 03/16/19 05:45 MCH 30.4 pg (27.0-31.0) 03/16/19 05:45 MCHC Differential 32.8 pg (28.0-36.0) 03/16/19 05:45 RDW 15.0 % (11.5-20.0) 03/16/19 05:45 Plt Count 224 Th/cmm (150-400) 03/16/19 05:45 MPV 8.9 fl 03/16/19 05:45 Neutrophils % 60.8 % (40.0-80.0) 03/16/19 05:45 Lymphocytes % 24.6 % (20.0-50.0) 03/16/19 05:45 Monocytes % 9.4 % (2.0-10.0) 03/16/19 05:45 Eosinophils % 4.8 % (0.0-5.0) 03/16/19 05:45 Basophils % 0.4 % (0.0-2.0) 03/16/19 05:45 Sodium 137 mEq/L (136-145) 03/05/19 22:25 Potassium 4.1 mEq/L (3.5-5.1) 03/05/19 22:25 Chloride 101 mEq/L (98-107) 03/05/19 22:25 Carbon Dioxide 27.5 mEq/L (21.0-31.0) 03/05/19 22:25 Anion Gap 12.6 (7.0-16.0) 03/05/19 22:25 BUN 22 mg/dL (7-25) 03/05/19 22:25 Creatinine 0.7 mg/dL (0.7-1.3) 03/05/19 22:25 Est GFR ( Amer) > 60.0 ml/min (>90) 03/05/19 22:25 Est GFR (Non-Af Amer) > 60.0 ml/min 03/05/19 22:25 BUN/Creatinine Ratio 31.4 03/05/19 22:25 Glucose 120 mg/dL (70-105) H 03/05/19 22:25 POC Glucose 107 MG/DL (70 - 105) H 03/03/19 00:29 Whole Bld Lactic Acid 1.04 mmol/L (0.60-1.99) 03/02/19 22:20 Calcium 9.4 mg/dL (8.6-10.3) 03/05/19 22:25 Total Bilirubin 0.2 mg/dL (0.3-1.0) L 03/05/19 22:25 AST 26 U/L (13-39) 03/05/19 22:25 ALT 15 U/L (7-52) 03/05/19 22:25 Alkaline Phosphatase 46 U/L (34-104) 03/05/19 22:25 Troponin I 0.01 ng/mL (0.01-0.05) 03/05/19 22:25 Total Protein 6.7 gm/dL (6.0-8.3) 03/05/19 22:25 Albumin 3.6 gm/dL (4.2-5.5) L 03/05/19 22:25 Globulin 3.1 gm/dL 03/05/19 22:25 Albumin/Globulin Ratio 1.2 (1.0-1.8) 03/05/19 22:25 Urine Source CLEAN C 03/03/19 02:50 Urine Color YELLOW 03/03/19 02:50 Urine Clarity SLIGHT HAZY (CLEAR) 03/03/19 02:50 Urine pH 6.0 (4.6 - 8.0) 03/03/19 02:50 Ur Specific [place] >= 1.030 (1.005-1.030) 03/03/19 02:50 Urine Protein TRACE mg/dL (NEGATIVE) 03/03/19 02:50 Urine Glucose (UA) NEGATIVE mg/dL (NEGATIVE) 03/03/19 02:50 Urine Ketones NEGATIVE mg/dL (NEGATIVE) 03/03/19 02:50 Urine Blood TRACE (NEGATIVE) 03/03/19 02:50 Urine Nitrate NEGATIVE (NEGATIVE) 03/03/19 02:50 Urine Bilirubin NEGATIVE (NEGATIVE) 03/03/19 02:50 Urine Urobilinogen 0.2 E.U./dL (0.2 - 1.0) 03/03/19 02:50 Ur Leukocyte Esterase NEGATIVE (NEGATIVE) 03/03/19 02:50 Urine RBC 5-10 /hpf (0-5) H 03/03/19 02:50 Urine WBC 6-10 /hpf (0-5) 03/03/19 02:50 Ur Epithelial Cells RARE /lpf (FEW) 03/03/19 02:50 Urine Bacteria FEW /hpf (NONE SEEN) 03/03/19 02:50 Urine Opiates Screen NEGATIVE (NEGATIVE) 03/03/19 02:50 Urine Methadone Screen NEGATIVE (NEGATIVE) 03/03/19 02:50 Ur Barbiturates Screen NEGATIVE (NEGATIVE) 03/03/19 02:50 Ur Tricyclics Screen NEGATIVE (NEGATIVE) 03/03/19 02:50 Ur Phencyclidine Scrn NEGATIVE (NEGATIVE) 03/03/19 02:50 Amphetamines Screen POSITIVE (NEGATIVE) H 03/03/19 02:50 U Methamphetamines Scrn NEGATIVE (NEGATIVE) 03/03/19 02:50 U Benzodiazepines Scrn NEGATIVE (NEGATIVE) 03/03/19 02:50 U Cocaine Metab Screen NEGATIVE (NEGATIVE) 03/03/19 02:50 U Cannabinoids Screen NEGATIVE (NEGATIVE) 03/03/19 02:50 - Physical Exam Vitals and I&O: Vital Signs Temp 98.7 F 03/19/19 14:20 Pulse 102 03/19/19 14:20 Resp 22 03/19/19 14:20 BP 138/95 03/19/19 14:20 Pulse Ox 92 03/19/19 14:20 Intake & Output 03/18/19 03/19/19 03/19/19 18:59 06:59 18:59 Intake Total 1800 240 Balance 1800 240 Weight (lbs) 210 lb Intake: Oral 1800 240 Other: # Voids 3 4 # Bowel Movements 1 0 Weight Source Bedscale Active Medications: Current Medications Acetaminophen (Tylenol) 650 mg PO Q4HR PRN PRN Reason: Mild Pain / Temp above 100 Stop: 05/05/19 21:06 Last Admin: 03/16/19 23:23 Dose: 650 mg Acetaminophen/Hydrocodone Bitart ([place] 5mg/325mg) 1 tab PO Q6H PRN PRN Reason: Pain (Moderate) Stop: 05/16/19 16:39 Last Admin: 03/19/19 03:14 Dose: 1 tab Divalproex Sodium (Depakote Er) 500 mg PO BID COUNTS [facility]CLUDE 234 BEDS AT THE [facility]; Protocol Stop: 05/10/19 16:59 Last Admin: 03/19/19 08:52 Dose: 500 mg Lorazepam (Ativan) 0.5 mg PO Q4HR PRN; Protocol PRN Reason: Anxiety Stop: 04/05/19 21:07 Last Admin: 03/18/19 08:38 Dose: 0.5 mg Mirtazapine (Remeron) 7.5 mg PO HS COUNTS INCLUDE 234 BEDS AT THE [facility]; Protocol Stop: 05/06/19 20:59 Last Admin: 03/18/19 20:37 Dose: 7.5 mg Paroxetine HCl (Paxil) 20 mg PO DAILY COUNTS INCLUDE 234 BEDS AT THE [facility]; Protocol Stop: 05/18/19 08:59 Last Admin: 03/19/19 08:50 Dose: 20 mg Quetiapine Fumarate (Seroquel) 100 mg PO BID [facility] Stop: 05/17/19 16:59 Last Admin: 03/19/19 08:52 Dose: 100 mg Risperidone (Risperdal) 1.5 mg PO BID COUNTS INCLUDE 234 BEDS AT THE [facility]; Protocol Stop: 05/18/19 16:59 Zolpidem Tartrate (Ambien) 5 mg PO HS PRN PRN Reason: Insomnia Stop: 05/05/19 21:07 Last Admin: 03/18/19 20:38 Dose: 5 mg General: NAD, other (Anxious.) HEENT: NC/AT, PERRLA Neck: Supple, No JVD, No LAD Lungs: CTAB Cardiovascular: RRR, Normal S1, Normal S2 Abdomen: soft, non-tender, non-distended Extremities: clear Neurological: no change Internal Medicine Assmt/Plan - Assessment Assessment: Schizoaffective disorder Polysubstance abuse Bipolar HTN OA - Plan Plan: Continue current treatment plan. Monitor Labs.Continue current medications Continue to monitor VS Monitor Diet/Nutritional support. Psych management per Psychiatry. Pain Management. PT/OT prn Safety precaution, Fall precaution, frequent nursing round. Supportive care. Continue collaborating with consulting specialists, case management and nursing team. Nutritional Asmnt/Malnutr-PDOC - Dietary Evaluation Malnutrition Findings (Please click <Entered> for more info): Nutritional Asmnt/Malnutrition Start: 03/12/19 14: 50 Text: Status: Complete Freq: Protocol: Document 03/12/19 14:50 SILKE (Rec: 03/12/19 14:53 SILKE [email or web address]) Nutritional Asmnt/Malnutrition Patient General Information Nutritional Screening Low Risk Diagnosis Psychosis Pertinent Medical Hx/Surgical Hx Unremarkable (per H&P Report) Subjective Information Pt is a 63-year-old male admitted on 03/06 d/t aggression and agitation. Pt is homeless and admits to using illicit drugs. Pt has eaten well since admission, meeting all nutritional needs. HT: 59 WT: 210 LB (95.45 kg) ABW: 173 LB (78.47 kg) BMI: 31.01 (Obese) GI: WNL, Soft, Round, Non- tender BM: Not noted I/O: 240/Not Noted Skin: WNL, dryness John: 20 Diet Order: Regular Estimated Energy Needs: ( Geriatric, ABW) 5428-4119 kcals (25-30 kcals/ kg) 78-94g Pro (1.0-1.2 g/kg) 8505-3654 ml (25-30 ml/kg) Pt is eating 100% of meals Per Meal/Nutrition Activity Record. Dietary is currently providing an estimated 3170 kcals and 140 gm Pro to meet 100+% kcal and 100+% Pro needs . Current Diet Order/ Nutrition Support Regular Pertinent Medications No pertinent medications Pertinent Labs 03/05: Glucose 120, T Bili 0.2, Alb 3.6 Nutritional Hx/Data Height 5 ft 9 in Height (Calculated Centimeters) 175.3 Current Weight (lbs) 210 lb Weight (Calculated Kilograms) 95.3 Weight (Calculated Grams) 25954.4 [place] Body Weight 160 LB (72.73 kg) % [place] Body Weight 131 Body Mass Index (BMI) 31.0 Weight Status Obese GI Symptoms GI Symptoms None Last BM Not noted Skin Integrity/Comment: Skin: WNL, dryness John: 20 Current %PO Good (75-100%) Estimated Nutritional Goals BEE in Kcals: Adj wt of IBW Calories/Kcals/Kg 25-30 Kcals Calculated 4915-9967 Protein: Adj wt of IBW Protein g/k.0-1.2 Protein Calculated 78-94 Fluid: ml 9238-4940 ml (25-30 ml/kg) Nutritional Problem 1. Problem Problem Poor nutrition quality of life Etiology r/t Pt being homeless Signs/Symptoms: aeb BMI 31.01 and Pt self- report. Malnutrition Related to Morbid Obesity Malnutrition related to morbid obesity No Intervention/Recommendation Comments Continue with Regular diet as ordered. Expected Outcomes/Goals Expected Outcomes/Goals 1. PO intake to continue to meet 75% of nutritional needs. 2. Monitor PO intake, wt, nutrition related labs, and skin integrity. 3. F/U as low risk in 7 days, 03/19
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
--- NOTE | 2019-03-20 13:58 | Internal Medicine Prog Note ---
Internal Medicine Subjective - Subjective Service Date: 03/20/19 Patient is:: awake, verbal, interactive, agitated Patient Complaints of:: other (Is still very Anxious and agressive mood.) Per staff patient has:: no adverse event, no episodes of fall Internal Medicine Objective - Results Result Diagrams: 03/16/19 05:45 03/05/19 22:25 Recent Labs: Laboratory Last Values WBC 8.0 Th/cmm (4.8-10.8) 03/16/19 05:45 RBC 4.95 Mil/cmm (3.80-5.80) 03/16/19 05:45 Hgb 15.0 gm/dL (12-16) 03/16/19 05:45 Hct 45.8 % (41.0-60) 03/16/19 05:45 MCV 92.5 fl (80-99) 03/16/19 05:45 MCH 30.4 pg (27.0-31.0) 03/16/19 05:45 MCHC Differential 32.8 pg (28.0-36.0) 03/16/19 05:45 RDW 15.0 % (11.5-20.0) 03/16/19 05:45 Plt Count 224 Th/cmm (150-400) 03/16/19 05:45 MPV 8.9 fl 03/16/19 05:45 Neutrophils % 60.8 % (40.0-80.0) 03/16/19 05:45 Lymphocytes % 24.6 % (20.0-50.0) 03/16/19 05:45 Monocytes % 9.4 % (2.0-10.0) 03/16/19 05:45 Eosinophils % 4.8 % (0.0-5.0) 03/16/19 05:45 Basophils % 0.4 % (0.0-2.0) 03/16/19 05:45 Sodium 137 mEq/L (136-145) 03/05/19 22:25 Potassium 4.1 mEq/L (3.5-5.1) 03/05/19 22:25 Chloride 101 mEq/L (98-107) 03/05/19 22:25 Carbon Dioxide 27.5 mEq/L (21.0-31.0) 03/05/19 22:25 Anion Gap 12.6 (7.0-16.0) 03/05/19 22:25 BUN 22 mg/dL (7-25) 03/05/19 22:25 Creatinine 0.7 mg/dL (0.7-1.3) 03/05/19 22:25 Est GFR ( Amer) > 60.0 ml/min (>90) 03/05/19 22:25 Est GFR (Non-Af Amer) > 60.0 ml/min 03/05/19 22:25 BUN/Creatinine Ratio 31.4 03/05/19 22:25 Glucose 120 mg/dL (70-105) H 03/05/19 22:25 POC Glucose 107 MG/DL (70 - 105) H 03/03/19 00:29 Whole Bld Lactic Acid 1.04 mmol/L (0.60-1.99) 03/02/19 22:20 Calcium 9.4 mg/dL (8.6-10.3) 03/05/19 22:25 Total Bilirubin 0.2 mg/dL (0.3-1.0) L 03/05/19 22:25 AST 26 U/L (13-39) 03/05/19 22:25 ALT 15 U/L (7-52) 03/05/19 22:25 Alkaline Phosphatase 46 U/L (34-104) 03/05/19 22:25 Troponin I 0.01 ng/mL (0.01-0.05) 03/05/19 22:25 Total Protein 6.7 gm/dL (6.0-8.3) 03/05/19 22:25 Albumin 3.6 gm/dL (4.2-5.5) L 03/05/19 22:25 Globulin 3.1 gm/dL 03/05/19 22:25 Albumin/Globulin Ratio 1.2 (1.0-1.8) 03/05/19 22:25 Urine Source CLEAN C 03/03/19 02:50 Urine Color YELLOW 03/03/19 02:50 Urine Clarity SLIGHT HAZY (CLEAR) 03/03/19 02:50 Urine pH 6.0 (4.6 - 8.0) 03/03/19 02:50 Ur Specific [place] >= 1.030 (1.005-1.030) 03/03/19 02:50 Urine Protein TRACE mg/dL (NEGATIVE) 03/03/19 02:50 Urine Glucose (UA) NEGATIVE mg/dL (NEGATIVE) 03/03/19 02:50 Urine Ketones NEGATIVE mg/dL (NEGATIVE) 03/03/19 02:50 Urine Blood TRACE (NEGATIVE) 03/03/19 02:50 Urine Nitrate NEGATIVE (NEGATIVE) 03/03/19 02:50 Urine Bilirubin NEGATIVE (NEGATIVE) 03/03/19 02:50 Urine Urobilinogen 0.2 E.U./dL (0.2 - 1.0) 03/03/19 02:50 Ur Leukocyte Esterase NEGATIVE (NEGATIVE) 03/03/19 02:50 Urine RBC 5-10 /hpf (0-5) H 03/03/19 02:50 Urine WBC 6-10 /hpf (0-5) 03/03/19 02:50 Ur Epithelial Cells RARE /lpf (FEW) 03/03/19 02:50 Urine Bacteria FEW /hpf (NONE SEEN) 03/03/19 02:50 Urine Opiates Screen NEGATIVE (NEGATIVE) 03/03/19 02:50 Urine Methadone Screen NEGATIVE (NEGATIVE) 03/03/19 02:50 Ur Barbiturates Screen NEGATIVE (NEGATIVE) 03/03/19 02:50 Ur Tricyclics Screen NEGATIVE (NEGATIVE) 03/03/19 02:50 Ur Phencyclidine Scrn NEGATIVE (NEGATIVE) 03/03/19 02:50 Amphetamines Screen POSITIVE (NEGATIVE) H 03/03/19 02:50 U Methamphetamines Scrn NEGATIVE (NEGATIVE) 03/03/19 02:50 U Benzodiazepines Scrn NEGATIVE (NEGATIVE) 03/03/19 02:50 U Cocaine Metab Screen NEGATIVE (NEGATIVE) 03/03/19 02:50 U Cannabinoids Screen NEGATIVE (NEGATIVE) 03/03/19 02:50 - Physical Exam Vitals and I&O: Vital Signs Temp 97.6 F 03/20/19 06:38 Pulse 108 03/20/19 08:36 Resp 19 03/20/19 08:00 BP 154/107 03/20/19 08:36 Pulse Ox 97 03/20/19 06:38 Intake & Output 03/19/19 03/20/19 03/20/19 18:59 06:59 18:59 Intake Total 240 Balance 240 Intake: Oral 240 Other: # Voids 2 1 # Bowel Movements 1 0 Active Medications: Current Medications Acetaminophen (Tylenol) 650 mg PO Q4HR PRN PRN Reason: Mild Pain / Temp above 100 Stop: 05/05/19 21:06 Last Admin: 03/16/19 23:23 Dose: 650 mg Acetaminophen/Hydrocodone Bitart ([place] 5mg/325mg) 1 tab PO Q6H PRN PRN Reason: Pain (Moderate) Stop: 05/16/19 16:39 Last Admin: 03/19/19 03:14 Dose: 1 tab Amlodipine Besylate (Norvasc) 5 mg PO BID [facility] Stop: 05/19/19 08:59 Last Admin: 03/20/19 08:36 Dose: 5 mg Divalproex Sodium (Depakote Er) 500 mg PO BID [facility]; Protocol Stop: 05/10/19 16:59 Last Admin: 03/20/19 08:36 Dose: 500 mg Lorazepam (Ativan) 0.5 mg PO Q4HR PRN; Protocol PRN Reason: Anxiety Stop: 04/05/19 21:07 Last Admin: 03/18/19 08:38 Dose: 0.5 mg Mirtazapine (Remeron) 7.5 mg PO HS [facility]; Protocol Stop: 05/06/19 20:59 Last Admin: 03/19/19 20:27 Dose: 7.5 mg Paroxetine HCl (Paxil) 20 mg PO DAILY [facility]; Protocol Stop: 05/18/19 08:59 Last Admin: 03/20/19 08:36 Dose: 20 mg Quetiapine Fumarate (Seroquel) 100 mg PO BID [facility] Stop: 05/17/19 16:59 Last Admin: 03/20/19 08:36 Dose: 100 mg Risperidone (Risperdal) 2 mg PO BID [facility]; Protocol Stop: 05/19/19 16:59 Zolpidem Tartrate (Ambien) 5 mg PO HS PRN PRN Reason: Insomnia Stop: 05/05/19 21:07 Last Admin: 03/19/19 20:27 Dose: 5 mg General: NAD, other (Anxious.) HEENT: NC/AT, PERRLA Neck: Supple, No JVD, No LAD Lungs: CTAB Cardiovascular: RRR, Normal S1, Normal S2 Abdomen: soft, non-tender, non-distended Extremities: clear Neurological: no change Internal Medicine Assmt/Plan - Assessment Assessment: Schizoaffective disorder Polysubstance abuse Bipolar HTN OA - Plan Plan: Continue current treatment plan. Monitor Labs.Continue current medications Continue to monitor VS Monitor Diet/Nutritional support. Psych management per Psychiatry. Pain Management. PT/OT prn Safety precaution, Fall precaution, frequent nursing round. Supportive care. Continue collaborating with consulting specialists, case management and nursing team. Nutritional Asmnt/Malnutr-PDOC - Dietary Evaluation Malnutrition Findings (Please click <Entered> for more info): Nutritional Asmnt/Malnutrition Start: 03/12/19 14: 50 Text: Status: Complete Freq: Protocol: Document 03/12/19 14:50 SILKE (Rec: 03/12/19 14:53 SILKE [email or web address]) Nutritional Asmnt/Malnutrition Patient General Information Nutritional Screening Low Risk Diagnosis Psychosis Pertinent Medical Hx/Surgical Hx Unremarkable (per H&P Report) Subjective Information Pt is a 63-year-old male admitted on 03/06 d/t aggression and agitation. Pt is homeless and admits to using illicit drugs. Pt has eaten well since admission, meeting all nutritional needs. HT: 59 WT: 210 LB (95.45 kg) ABW: 173 LB (78.47 kg) BMI: 31.01 (Obese) GI: WNL, Soft, Round, Non- tender BM: Not noted I/O: 240/Not Noted Skin: WNL, dryness John: 20 Diet Order: Regular Estimated Energy Needs: ( Geriatric, ABW) 3267-6866 kcals (25-30 kcals/ kg) 78-94g Pro (1.0-1.2 g/kg) 6047-8366 ml (25-30 ml/kg) Pt is eating 100% of meals Per Meal/Nutrition Activity Record. Dietary is currently providing an estimated 3170 kcals and 140 gm Pro to meet 100+% kcal and 100+% Pro needs . Current Diet Order/ Nutrition Support Regular Pertinent Medications No pertinent medications Pertinent Labs 03/05: Glucose 120, T Bili 0.2, Alb 3.6 Nutritional Hx/Data Height 5 ft 9 in Height (Calculated Centimeters) 175.3 Current Weight (lbs) 210 lb Weight (Calculated Kilograms) 95.3 Weight (Calculated Grams) 42318.4 [place] Body Weight 160 LB (72.73 kg) % [place] Body Weight 131 Body Mass Index (BMI) 31.0 Weight Status Obese GI Symptoms GI Symptoms None Last BM Not noted Skin Integrity/Comment: Skin: WNL, dryness John: 20 Current %PO Good (75-100%) Estimated Nutritional Goals BEE in Kcals: Adj wt of IBW Calories/Kcals/Kg 25-30 Kcals Calculated 7910-2426 Protein: Adj wt of IBW Protein g/k.0-1.2 Protein Calculated 78-94 Fluid: ml 1463-5237 ml (25-30 ml/kg) Nutritional Problem 1. Problem Problem Poor nutrition quality of life Etiology r/t Pt being homeless Signs/Symptoms: aeb BMI 31.01 and Pt self- report. Malnutrition Related to Morbid Obesity Malnutrition related to morbid obesity No Intervention/Recommendation Comments Continue with Regular diet as ordered. Expected Outcomes/Goals Expected Outcomes/Goals 1. PO intake to continue to meet 75% of nutritional needs. 2. Monitor PO intake, wt, nutrition related labs, and skin integrity. 3. F/U as low risk in 7 days, 03/19
[2019-03-20] MEDS: Hydrocodone/APAP 5mg/325mg Tab PO PRN (18:04)
--- NOTE | 2019-03-20 23:17 | Progress Notes ---
DATE: 03/20/2019 SUBJECTIVE: Case was discussed with staff of the patient, reviewed records. The patient continues to be irritable and angry. Continues to be hard to redirect. Continues to have poor insight, unpredictable, impulsive, needing redirection. I did increase his Risperdal yesterday to 1.5 mg twice a day and today I will increase it more to 2 mg because of his severe agitation, irritability, hard to redirect. 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 We will continue outpatient group therapy, milieu therapy, adjust medication as needed. JOB# [id number]
[2019-03-21] MEDS: Hydrocodone/APAP 5mg/325mg Tab PO PRN (04:14)
--- NOTE | 2019-03-21 13:45 | Internal Medicine Prog Note ---
Internal Medicine Subjective - Subjective Patient is:: awake, verbal, interactive, agitated, other (angry) Patient Complaints of:: other (Is still very Anxious and agressive mood.) Per staff patient has:: no adverse event, no episodes of fall Internal Medicine Objective - Results Result Diagrams: 03/16/19 05:45 03/05/19 22:25 Recent Labs: Laboratory Last Values WBC 8.0 Th/cmm (4.8-10.8) 03/16/19 05:45 RBC 4.95 Mil/cmm (3.80-5.80) 03/16/19 05:45 Hgb 15.0 gm/dL (12-16) 03/16/19 05:45 Hct 45.8 % (41.0-60) 03/16/19 05:45 MCV 92.5 fl (80-99) 03/16/19 05:45 MCH 30.4 pg (27.0-31.0) 03/16/19 05:45 MCHC Differential 32.8 pg (28.0-36.0) 03/16/19 05:45 RDW 15.0 % (11.5-20.0) 03/16/19 05:45 Plt Count 224 Th/cmm (150-400) 03/16/19 05:45 MPV 8.9 fl 03/16/19 05:45 Neutrophils % 60.8 % (40.0-80.0) 03/16/19 05:45 Lymphocytes % 24.6 % (20.0-50.0) 03/16/19 05:45 Monocytes % 9.4 % (2.0-10.0) 03/16/19 05:45 Eosinophils % 4.8 % (0.0-5.0) 03/16/19 05:45 Basophils % 0.4 % (0.0-2.0) 03/16/19 05:45 Sodium 137 mEq/L (136-145) 03/05/19 22:25 Potassium 4.1 mEq/L (3.5-5.1) 03/05/19 22:25 Chloride 101 mEq/L (98-107) 03/05/19 22:25 Carbon Dioxide 27.5 mEq/L (21.0-31.0) 03/05/19 22:25 Anion Gap 12.6 (7.0-16.0) 03/05/19 22:25 BUN 22 mg/dL (7-25) 03/05/19 22:25 Creatinine 0.7 mg/dL (0.7-1.3) 03/05/19 22:25 Est GFR ( Amer) > 60.0 ml/min (>90) 03/05/19 22:25 Est GFR (Non-Af Amer) > 60.0 ml/min 03/05/19 22:25 BUN/Creatinine Ratio 31.4 03/05/19 22:25 Glucose 120 mg/dL (70-105) H 03/05/19 22:25 POC Glucose 107 MG/DL (70 - 105) H 03/03/19 00:29 Whole Bld Lactic Acid 1.04 mmol/L (0.60-1.99) 03/02/19 22:20 Calcium 9.4 mg/dL (8.6-10.3) 03/05/19 22:25 Total Bilirubin 0.2 mg/dL (0.3-1.0) L 03/05/19 22:25 AST 26 U/L (13-39) 03/05/19 22:25 ALT 15 U/L (7-52) 03/05/19 22:25 Alkaline Phosphatase 46 U/L (34-104) 03/05/19 22:25 Troponin I 0.01 ng/mL (0.01-0.05) 03/05/19 22:25 Total Protein 6.7 gm/dL (6.0-8.3) 03/05/19 22:25 Albumin 3.6 gm/dL (4.2-5.5) L 03/05/19 22:25 Globulin 3.1 gm/dL 03/05/19 22:25 Albumin/Globulin Ratio 1.2 (1.0-1.8) 03/05/19 22:25 Urine Source CLEAN C 03/03/19 02:50 Urine Color YELLOW 03/03/19 02:50 Urine Clarity SLIGHT HAZY (CLEAR) 03/03/19 02:50 Urine pH 6.0 (4.6 - 8.0) 03/03/19 02:50 Ur Specific [place] >= 1.030 (1.005-1.030) 03/03/19 02:50 Urine Protein TRACE mg/dL (NEGATIVE) 03/03/19 02:50 Urine Glucose (UA) NEGATIVE mg/dL (NEGATIVE) 03/03/19 02:50 Urine Ketones NEGATIVE mg/dL (NEGATIVE) 03/03/19 02:50 Urine Blood TRACE (NEGATIVE) 03/03/19 02:50 Urine Nitrate NEGATIVE (NEGATIVE) 03/03/19 02:50 Urine Bilirubin NEGATIVE (NEGATIVE) 03/03/19 02:50 Urine Urobilinogen 0.2 E.U./dL (0.2 - 1.0) 03/03/19 02:50 Ur Leukocyte Esterase NEGATIVE (NEGATIVE) 03/03/19 02:50 Urine RBC 5-10 /hpf (0-5) H 03/03/19 02:50 Urine WBC 6-10 /hpf (0-5) 03/03/19 02:50 Ur Epithelial Cells RARE /lpf (FEW) 03/03/19 02:50 Urine Bacteria FEW /hpf (NONE SEEN) 03/03/19 02:50 Urine Opiates Screen NEGATIVE (NEGATIVE) 03/03/19 02:50 Urine Methadone Screen NEGATIVE (NEGATIVE) 03/03/19 02:50 Ur Barbiturates Screen NEGATIVE (NEGATIVE) 03/03/19 02:50 Ur Tricyclics Screen NEGATIVE (NEGATIVE) 03/03/19 02:50 Ur Phencyclidine Scrn NEGATIVE (NEGATIVE) 03/03/19 02:50 Amphetamines Screen POSITIVE (NEGATIVE) H 03/03/19 02:50 U Methamphetamines Scrn NEGATIVE (NEGATIVE) 03/03/19 02:50 U Benzodiazepines Scrn NEGATIVE (NEGATIVE) 03/03/19 02:50 U Cocaine Metab Screen NEGATIVE (NEGATIVE) 03/03/19 02:50 U Cannabinoids Screen NEGATIVE (NEGATIVE) 03/03/19 02:50 - Physical Exam Vitals and I&O: Vital Signs Temp 97.2 F 03/21/19 06:37 Pulse 88 03/21/19 09:04 Resp 19 03/21/19 06:37 BP 151/93 03/21/19 09:04 Pulse Ox 98 03/21/19 06:37 Intake & Output 03/20/19 03/21/19 03/21/19 18:59 06:59 18:59 Intake Total 1000 120 Balance 1000 120 Intake: Oral 1000 120 Other: # Voids 4 3 # Bowel Movements 1 Active Medications: Current Medications Acetaminophen (Tylenol) 650 mg PO Q4HR PRN PRN Reason: Mild Pain / Temp above 100 Stop: 05/05/19 21:06 Last Admin: 03/16/19 23:23 Dose: 650 mg Acetaminophen/Hydrocodone Bitart ([place] 5mg/325mg) 1 tab PO Q6H PRN PRN Reason: Pain (Moderate) Stop: 05/16/19 16:39 Last Admin: 03/21/19 04:14 Dose: 1 tab Amlodipine Besylate (Norvasc) 5 mg PO BID [facility] Stop: 05/19/19 08:59 Last Admin: 03/21/19 09:04 Dose: 5 mg Divalproex Sodium (Depakote Er) 500 mg PO BID [facility]; Protocol Stop: 05/10/19 16:59 Last Admin: 03/21/19 09:01 Dose: 500 mg Lorazepam (Ativan) 0.5 mg PO Q4HR PRN; Protocol PRN Reason: Anxiety Stop: 04/05/19 21:07 Last Admin: 03/18/19 08:38 Dose: 0.5 mg Mirtazapine (Remeron) 7.5 mg PO HS [facility]; Protocol Stop: 05/06/19 20:59 Last Admin: 03/20/19 21:01 Dose: 7.5 mg Paroxetine HCl (Paxil) 20 mg PO DAILY [facility]; Protocol Stop: 05/18/19 08:59 Last Admin: 03/21/19 09:01 Dose: 20 mg Quetiapine Fumarate (Seroquel) 100 mg PO BID [facility] Stop: 05/17/19 16:59 Last Admin: 03/21/19 09:00 Dose: 100 mg Risperidone (Risperdal) 2 mg PO BID [facility]; Protocol Stop: 05/19/19 16:59 Last Admin: 03/21/19 09:00 Dose: 2 mg Zolpidem Tartrate (Ambien) 5 mg PO HS PRN PRN Reason: Insomnia Stop: 05/05/19 21:07 Last Admin: 03/20/19 21:01 Dose: 5 mg Physical Exam: Patient continues to be unpredictable and impulsive, needs redirection, Psychotic, Can be very dangerous to self and others, Continue to monitor. General: NAD, other (Anxious.) HEENT: NC/AT, PERRLA Neck: Supple, No JVD, No LAD Lungs: CTAB Cardiovascular: RRR, Normal S1, Normal S2 Abdomen: soft, non-tender, non-distended Extremities: clear Neurological: no change Internal Medicine Assmt/Plan - Assessment Assessment: Agitated. Psychosis. Schizoaffective disorder. Polysubstance abuse. Bipolar. Htn. Osteoarthritis. - Plan Plan: Awaiting placement. Continuation of care. Monitor Labs. Continue present meds as directed. Monitor vitals, Continue B/P meds as directed. Monitor Diet/Nutritional support. Psych management per Psych. Pain Management. Physical therapy. Occupational therapy. Fall precaution, frequent nursing rounds, and as needed restraints to prevent fall. Safety precaution. Supportive care. Continue collaborating with consulting specialists, case management and nursing team. Will Monitor patient and continue present care management. Nutritional Asmnt/Malnutr-PDOC - Dietary Evaluation Malnutrition Findings (Please click <Entered> for more info): Nutritional Asmnt/Malnutrition Start: 03/12/19 14: 50 Text: Status: Complete Freq: Protocol: Document 03/12/19 14:50 SILKE (Rec: 03/12/19 14:53 SILKE [email or web address]) Nutritional Asmnt/Malnutrition Patient General Information Nutritional Screening Low Risk Diagnosis Psychosis Pertinent Medical Hx/Surgical Hx Unremarkable (per H&P Report) Subjective Information Pt is a 63-year-old male admitted on 03/06 d/t aggression and agitation. Pt is homeless and admits to using illicit drugs. Pt has eaten well since admission, meeting all nutritional needs. HT: 59 WT: 210 LB (95.45 kg) ABW: 173 LB (78.47 kg) BMI: 31.01 (Obese) GI: WNL, Soft, Round, Non- tender BM: Not noted I/O: 240/Not Noted Skin: WNL, dryness John: 20 Diet Order: Regular Estimated Energy Needs: ( Geriatric, ABW) 2588-0998 kcals (25-30 kcals/ kg) 78-94g Pro (1.0-1.2 g/kg) 7334-9410 ml (25-30 ml/kg) Pt is eating 100% of meals Per Meal/Nutrition Activity Record. Dietary is currently providing an estimated 3170 kcals and 140 gm Pro to meet 100+% kcal and 100+% Pro needs . Current Diet Order/ Nutrition Support Regular Pertinent Medications No pertinent medications Pertinent Labs 03/05: Glucose 120, T Bili 0.2, Alb 3.6 Nutritional Hx/Data Height 1.75 m Height (Calculated Centimeters) 175.3 Current Weight (lbs) 95.254 kg Weight (Calculated Kilograms) 95.3 Weight (Calculated Grams) 92513.4 [place] Body Weight 160 LB (72.73 kg) % [place] Body Weight 131 Body Mass Index (BMI) 31.0 Weight Status Obese GI Symptoms GI Symptoms None Last BM Not noted Skin Integrity/Comment: Skin: WNL, dryness John: 20 Current %PO Good (75-100%) Estimated Nutritional Goals BEE in Kcals: Adj wt of IBW Calories/Kcals/Kg 25-30 Kcals Calculated 4148-8745 Protein: Adj wt of IBW Protein g/k.0-1.2 Protein Calculated 78-94 Fluid: ml 2586-1421 ml (25-30 ml/kg) Nutritional Problem 1. Problem Problem Poor nutrition quality of life Etiology r/t Pt being homeless Signs/Symptoms: aeb BMI 31.01 and Pt self- report. Malnutrition Related to Morbid Obesity Malnutrition related to morbid obesity No Intervention/Recommendation Comments Continue with Regular diet as ordered. Expected Outcomes/Goals Expected Outcomes/Goals 1. PO intake to continue to meet 75% of nutritional needs. 2. Monitor PO intake, wt, nutrition related labs, and skin integrity. 3. F/U as low risk in 7 days, 03/19
--- NOTE | 2019-03-22 00:09 | Progress Notes ---
DATE: 03/21/2019 SUBJECTIVE: Case was discussed with staff of the patient, reviewed records. The patient is a bit calmer. He is not as irritable and agitated as he was. He is sleeping better, eating better now and asking for Ativan. I explained to him he can use it. He is compliant with the medication with no side effects, no sedation, no nausea, and no extrapyramidal symptoms. He is sleeping better, eating better. No side effects with the medication, no sedation, no nausea, and no extrapyramidal symptoms. He tolerated the increase in Risperdal to 2 mg twice a day yesterday. We will working on placement, so, we can discharge him and his urine drug screen was positive for amphetamine upon admission, so obviously the patient has been using drugs prior to coming here. The patient's Depakote level is pending. We will continue to work with the patient in group therapy, milieu therapy, and adjust the medications as needed. [facility]# [id number]
--- NOTE | 2019-03-22 10:47 | Internal Medicine Prog Note ---
Internal Medicine Subjective - Subjective Service Date: 03/22/19 Patient seen and examined:: chart reviewed Patient is:: awake, verbal, interactive, other (pt is doing better,less irritable, eating and sleeping better also ,no signs of pain ) Per staff patient has:: no adverse event, no episodes of fall Internal Medicine Objective - Results Result Diagrams: 03/16/19 05:45 03/05/19 22:25 Recent Labs: Laboratory Last Values WBC 8.0 Th/cmm (4.8-10.8) 03/16/19 05:45 RBC 4.95 Mil/cmm (3.80-5.80) 03/16/19 05:45 Hgb 15.0 gm/dL (12-16) 03/16/19 05:45 Hct 45.8 % (41.0-60) 03/16/19 05:45 MCV 92.5 fl (80-99) 03/16/19 05:45 MCH 30.4 pg (27.0-31.0) 03/16/19 05:45 MCHC Differential 32.8 pg (28.0-36.0) 03/16/19 05:45 RDW 15.0 % (11.5-20.0) 03/16/19 05:45 Plt Count 224 Th/cmm (150-400) 03/16/19 05:45 MPV 8.9 fl 03/16/19 05:45 Neutrophils % 60.8 % (40.0-80.0) 03/16/19 05:45 Lymphocytes % 24.6 % (20.0-50.0) 03/16/19 05:45 Monocytes % 9.4 % (2.0-10.0) 03/16/19 05:45 Eosinophils % 4.8 % (0.0-5.0) 03/16/19 05:45 Basophils % 0.4 % (0.0-2.0) 03/16/19 05:45 Sodium 137 mEq/L (136-145) 03/05/19 22:25 Potassium 4.1 mEq/L (3.5-5.1) 03/05/19 22:25 Chloride 101 mEq/L (98-107) 03/05/19 22:25 Carbon Dioxide 27.5 mEq/L (21.0-31.0) 03/05/19 22:25 Anion Gap 12.6 (7.0-16.0) 03/05/19 22:25 BUN 22 mg/dL (7-25) 03/05/19 22:25 Creatinine 0.7 mg/dL (0.7-1.3) 03/05/19 22:25 Est GFR ( Amer) > 60.0 ml/min (>90) 03/05/19 22:25 Est GFR (Non-Af Amer) > 60.0 ml/min 03/05/19 22:25 BUN/Creatinine Ratio 31.4 03/05/19 22:25 Glucose 120 mg/dL (70-105) H 03/05/19 22:25 POC Glucose 107 MG/DL (70 - 105) H 03/03/19 00:29 Whole Bld Lactic Acid 1.04 mmol/L (0.60-1.99) 03/02/19 22:20 Calcium 9.4 mg/dL (8.6-10.3) 03/05/19 22:25 Total Bilirubin 0.2 mg/dL (0.3-1.0) L 03/05/19 22:25 AST 26 U/L (13-39) 03/05/19 22:25 ALT 15 U/L (7-52) 03/05/19 22:25 Alkaline Phosphatase 46 U/L (34-104) 03/05/19 22:25 Troponin I 0.01 ng/mL (0.01-0.05) 03/05/19 22:25 Total Protein 6.7 gm/dL (6.0-8.3) 03/05/19 22:25 Albumin 3.6 gm/dL (4.2-5.5) L 03/05/19 22:25 Globulin 3.1 gm/dL 03/05/19 22:25 Albumin/Globulin Ratio 1.2 (1.0-1.8) 03/05/19 22:25 Urine Source CLEAN C 03/03/19 02:50 Urine Color YELLOW 03/03/19 02:50 Urine Clarity SLIGHT HAZY (CLEAR) 03/03/19 02:50 Urine pH 6.0 (4.6 - 8.0) 03/03/19 02:50 Ur Specific [place] >= 1.030 (1.005-1.030) 03/03/19 02:50 Urine Protein TRACE mg/dL (NEGATIVE) 03/03/19 02:50 Urine Glucose (UA) NEGATIVE mg/dL (NEGATIVE) 03/03/19 02:50 Urine Ketones NEGATIVE mg/dL (NEGATIVE) 03/03/19 02:50 Urine Blood TRACE (NEGATIVE) 03/03/19 02:50 Urine Nitrate NEGATIVE (NEGATIVE) 03/03/19 02:50 Urine Bilirubin NEGATIVE (NEGATIVE) 03/03/19 02:50 Urine Urobilinogen 0.2 E.U./dL (0.2 - 1.0) 03/03/19 02:50 Ur Leukocyte Esterase NEGATIVE (NEGATIVE) 03/03/19 02:50 Urine RBC 5-10 /hpf (0-5) H 03/03/19 02:50 Urine WBC 6-10 /hpf (0-5) 03/03/19 02:50 Ur Epithelial Cells RARE /lpf (FEW) 03/03/19 02:50 Urine Bacteria FEW /hpf (NONE SEEN) 03/03/19 02:50 Urine Opiates Screen NEGATIVE (NEGATIVE) 03/03/19 02:50 Urine Methadone Screen NEGATIVE (NEGATIVE) 03/03/19 02:50 Ur Barbiturates Screen NEGATIVE (NEGATIVE) 03/03/19 02:50 Ur Tricyclics Screen NEGATIVE (NEGATIVE) 03/03/19 02:50 Ur Phencyclidine Scrn NEGATIVE (NEGATIVE) 03/03/19 02:50 Amphetamines Screen POSITIVE (NEGATIVE) H 03/03/19 02:50 U Methamphetamines Scrn NEGATIVE (NEGATIVE) 03/03/19 02:50 U Benzodiazepines Scrn NEGATIVE (NEGATIVE) 03/03/19 02:50 U Cocaine Metab Screen NEGATIVE (NEGATIVE) 03/03/19 02:50 U Cannabinoids Screen NEGATIVE (NEGATIVE) 03/03/19 02:50 - Physical Exam Vitals and I&O: Vital Signs Temp 97.6 F 03/22/19 06:31 Pulse 101 03/22/19 08:40 Resp 20 03/22/19 06:31 BP 141/3 03/22/19 08:40 Pulse Ox 141 03/22/19 06:31 Intake & Output 03/21/19 03/22/19 03/22/19 18:59 06:59 18:59 Intake Total 820 1500 Balance 820 1500 Intake: Oral 460 1500 Other 360 Other: # Voids 3 3 # Bowel Movements 1 Active Medications: Current Medications Acetaminophen (Tylenol) 650 mg PO Q4HR PRN PRN Reason: Mild Pain / Temp above 100 Stop: 05/05/19 21:06 Last Admin: 03/16/19 23:23 Dose: 650 mg Acetaminophen/Hydrocodone Bitart ([place] 5mg/325mg) 1 tab PO Q6H PRN PRN Reason: Pain (Moderate) Stop: 05/16/19 16:39 Last Admin: 03/21/19 04:14 Dose: 1 tab Amlodipine Besylate (Norvasc) 5 mg PO BID [facility] Stop: 05/19/19 08:59 Last Admin: 03/22/19 08:40 Dose: 5 mg Divalproex Sodium (Depakote Er) 500 mg PO BID [facility]; Protocol Stop: 05/10/19 16:59 Last Admin: 03/22/19 08:41 Dose: 500 mg Lorazepam (Ativan) 0.5 mg PO Q4HR PRN; Protocol PRN Reason: Anxiety Stop: 04/05/19 21:07 Last Admin: 03/22/19 08:42 Dose: 0.5 mg Mirtazapine (Remeron) 7.5 mg PO HS [facility]; Protocol Stop: 05/06/19 20:59 Last Admin: 03/21/19 20:44 Dose: 7.5 mg Paroxetine HCl (Paxil) 20 mg PO DAILY [facility]; Protocol Stop: 05/18/19 08:59 Last Admin: 03/22/19 08:41 Dose: 20 mg Quetiapine Fumarate (Seroquel) 100 mg PO BID [facility] Stop: 05/17/19 16:59 Last Admin: 03/22/19 08:41 Dose: 100 mg Risperidone (Risperdal) 2 mg PO BID [facility]; Protocol Stop: 05/19/19 16:59 Last Admin: 03/22/19 08:41 Dose: 2 mg Zolpidem Tartrate (Ambien) 5 mg PO HS PRN PRN Reason: Insomnia Stop: 05/05/19 21:07 Last Admin: 03/20/19 21:01 Dose: 5 mg Physical Exam: Patient continues to be unpredictable and impulsive, needs redirection, Psychotic, Can be very dangerous to self and others, Continue to monitor. General: NAD, other (awake alert, no distress ) HEENT: NC/AT, PERRLA Neck: Supple, No JVD, No LAD Lungs: CTAB Cardiovascular: RRR, Normal S1, Normal S2 Abdomen: soft, non-tender, non-distended Extremities: clear Neurological: no change Internal Medicine Assmt/Plan - Assessment Assessment: Psychosis, improving Schizoaffective disorder. Polysubstance abuse. Bipolar. Htn. Osteoarthritis. - Plan Plan: Awaiting placement. Continuation of care. Monitor Labs. Continue present meds as directed. Monitor vitals diet labs Fall precaution, frequent nursing rounds, and as needed restraints to prevent fall. Safety precaution. Supportive care. Nutritional Asmnt/Malnutr-PDOC - Dietary Evaluation Malnutrition Findings (Please click <Entered> for more info): Nutritional Asmnt/Malnutrition Start: 03/12/19 14: 50 Text: Status: Complete Freq: Protocol: Document 03/12/19 14:50 SILKE (Rec: 03/12/19 14:53 SILKE [email or web address]) Nutritional Asmnt/Malnutrition Patient General Information Nutritional Screening Low Risk Diagnosis Psychosis Pertinent Medical Hx/Surgical Hx Unremarkable (per H&P Report) Subjective Information Pt is a 63-year-old male admitted on 03/06 d/t aggression and agitation. Pt is homeless and admits to using illicit drugs. Pt has eaten well since admission, meeting all nutritional needs. HT: 59 WT: 210 LB (95.45 kg) ABW: 173 LB (78.47 kg) BMI: 31.01 (Obese) GI: WNL, Soft, Round, Non- tender BM: Not noted I/O: 240/Not Noted Skin: WNL, dryness John: 20 Diet Order: Regular Estimated Energy Needs: ( Geriatric, ABW) 6276-3995 kcals (25-30 kcals/ kg) 78-94g Pro (1.0-1.2 g/kg) 3224-8097 ml (25-30 ml/kg) Pt is eating 100% of meals Per Meal/Nutrition Activity Record. Dietary is currently providing an estimated 3170 kcals and 140 gm Pro to meet 100+% kcal and 100+% Pro needs . Current Diet Order/ Nutrition Support Regular Pertinent Medications No pertinent medications Pertinent Labs 03/05: Glucose 120, T Bili 0.2, Alb 3.6 Nutritional Hx/Data Height 1.75 m Height (Calculated Centimeters) 175.3 Current Weight (lbs) 95.254 kg Weight (Calculated Kilograms) 95.3 Weight (Calculated Grams) 70935.4 [place] Body Weight 160 LB (72.73 kg) % [place] Body Weight 131 Body Mass Index (BMI) 31.0 Weight Status Obese GI Symptoms GI Symptoms None Last BM Not noted Skin Integrity/Comment: Skin: WNL, dryness John: 20 Current %PO Good (75-100%) Estimated Nutritional Goals BEE in Kcals: Adj wt of IBW Calories/Kcals/Kg 25-30 Kcals Calculated 5873-4298 Protein: Adj wt of IBW Protein g/k.0-1.2 Protein Calculated 78-94 Fluid: ml 8896-8480 ml (25-30 ml/kg) Nutritional Problem 1. Problem Problem Poor nutrition quality of life Etiology r/t Pt being homeless Signs/Symptoms: aeb BMI 31.01 and Pt self- report. Malnutrition Related to Morbid Obesity Malnutrition related to morbid obesity No Intervention/Recommendation Comments Continue with Regular diet as ordered. Expected Outcomes/Goals Expected Outcomes/Goals 1. PO intake to continue to meet 75% of nutritional needs. 2. Monitor PO intake, wt, nutrition related labs, and skin integrity. 3. F/U as low risk in 7 days, 03/19
--- NOTE | 2019-03-22 15:15 | Progress Notes ---
DATE: 03/22/2019 SUBJECTIVE: Case was discussed with staff of the patient, reviewed records. The patient continues to be unpredictable, impulsive, needing redirection, keep asking for more medication. Continues to have poor insight, unable to make safe plan for self-care, was using drugs prior to coming here. He wants to go to a nursing facility, increasing his Risperdal dose to 2.5 mg twice a day to help improve his agitated, psychotic behavior. We will continue outpatient group therapy, milieu therapy, adjust medication as needed. JOB# [id number]
[2019-03-22] MEDS: Hydrocodone/APAP 5mg/325mg Tab PO PRN (16:32)
--- NOTE | 2019-03-23 09:36 | Internal Medicine Prog Note ---
Internal Medicine Subjective - Subjective Patient is:: awake, verbal, interactive, other (pt is doing better,less irritable, eating and sleeping better also ,no signs of pain ) Patient Complaints of:: other Per staff patient has:: no adverse event, no episodes of fall Internal Medicine Objective - Results Result Diagrams: 03/16/19 05:45 03/05/19 22:25 Recent Labs: Laboratory Last Values WBC 8.0 Th/cmm (4.8-10.8) 03/16/19 05:45 RBC 4.95 Mil/cmm (3.80-5.80) 03/16/19 05:45 Hgb 15.0 gm/dL (12-16) 03/16/19 05:45 Hct 45.8 % (41.0-60) 03/16/19 05:45 MCV 92.5 fl (80-99) 03/16/19 05:45 MCH 30.4 pg (27.0-31.0) 03/16/19 05:45 MCHC Differential 32.8 pg (28.0-36.0) 03/16/19 05:45 RDW 15.0 % (11.5-20.0) 03/16/19 05:45 Plt Count 224 Th/cmm (150-400) 03/16/19 05:45 MPV 8.9 fl 03/16/19 05:45 Neutrophils % 60.8 % (40.0-80.0) 03/16/19 05:45 Lymphocytes % 24.6 % (20.0-50.0) 03/16/19 05:45 Monocytes % 9.4 % (2.0-10.0) 03/16/19 05:45 Eosinophils % 4.8 % (0.0-5.0) 03/16/19 05:45 Basophils % 0.4 % (0.0-2.0) 03/16/19 05:45 Sodium 137 mEq/L (136-145) 03/05/19 22:25 Potassium 4.1 mEq/L (3.5-5.1) 03/05/19 22:25 Chloride 101 mEq/L (98-107) 03/05/19 22:25 Carbon Dioxide 27.5 mEq/L (21.0-31.0) 03/05/19 22:25 Anion Gap 12.6 (7.0-16.0) 03/05/19 22:25 BUN 22 mg/dL (7-25) 03/05/19 22:25 Creatinine 0.7 mg/dL (0.7-1.3) 03/05/19 22:25 Est GFR ( Amer) > 60.0 ml/min (>90) 03/05/19 22:25 Est GFR (Non-Af Amer) > 60.0 ml/min 03/05/19 22:25 BUN/Creatinine Ratio 31.4 03/05/19 22:25 Glucose 120 mg/dL (70-105) H 03/05/19 22:25 POC Glucose 107 MG/DL (70 - 105) H 03/03/19 00:29 Whole Bld Lactic Acid 1.04 mmol/L (0.60-1.99) 03/02/19 22:20 Calcium 9.4 mg/dL (8.6-10.3) 03/05/19 22:25 Total Bilirubin 0.2 mg/dL (0.3-1.0) L 03/05/19 22:25 AST 26 U/L (13-39) 03/05/19 22:25 ALT 15 U/L (7-52) 03/05/19 22:25 Alkaline Phosphatase 46 U/L (34-104) 03/05/19 22:25 Troponin I 0.01 ng/mL (0.01-0.05) 03/05/19 22:25 Total Protein 6.7 gm/dL (6.0-8.3) 03/05/19 22:25 Albumin 3.6 gm/dL (4.2-5.5) L 03/05/19 22:25 Globulin 3.1 gm/dL 03/05/19 22:25 Albumin/Globulin Ratio 1.2 (1.0-1.8) 03/05/19 22:25 Urine Source CLEAN C 03/03/19 02:50 Urine Color YELLOW 03/03/19 02:50 Urine Clarity SLIGHT HAZY (CLEAR) 03/03/19 02:50 Urine pH 6.0 (4.6 - 8.0) 03/03/19 02:50 Ur Specific [place] >= 1.030 (1.005-1.030) 03/03/19 02:50 Urine Protein TRACE mg/dL (NEGATIVE) 03/03/19 02:50 Urine Glucose (UA) NEGATIVE mg/dL (NEGATIVE) 03/03/19 02:50 Urine Ketones NEGATIVE mg/dL (NEGATIVE) 03/03/19 02:50 Urine Blood TRACE (NEGATIVE) 03/03/19 02:50 Urine Nitrate NEGATIVE (NEGATIVE) 03/03/19 02:50 Urine Bilirubin NEGATIVE (NEGATIVE) 03/03/19 02:50 Urine Urobilinogen 0.2 E.U./dL (0.2 - 1.0) 03/03/19 02:50 Ur Leukocyte Esterase NEGATIVE (NEGATIVE) 03/03/19 02:50 Urine RBC 5-10 /hpf (0-5) H 03/03/19 02:50 Urine WBC 6-10 /hpf (0-5) 03/03/19 02:50 Ur Epithelial Cells RARE /lpf (FEW) 03/03/19 02:50 Urine Bacteria FEW /hpf (NONE SEEN) 03/03/19 02:50 Urine Opiates Screen NEGATIVE (NEGATIVE) 03/03/19 02:50 Urine Methadone Screen NEGATIVE (NEGATIVE) 03/03/19 02:50 Ur Barbiturates Screen NEGATIVE (NEGATIVE) 03/03/19 02:50 Valproic Acid 51.8 ug/mL (50.0-100.0) 03/16/19 05:50 Ur Tricyclics Screen NEGATIVE (NEGATIVE) 03/03/19 02:50 Ur Phencyclidine Scrn NEGATIVE (NEGATIVE) 03/03/19 02:50 Amphetamines Screen POSITIVE (NEGATIVE) H 03/03/19 02:50 U Methamphetamines Scrn NEGATIVE (NEGATIVE) 03/03/19 02:50 U Benzodiazepines Scrn NEGATIVE (NEGATIVE) 03/03/19 02:50 U Cocaine Metab Screen NEGATIVE (NEGATIVE) 03/03/19 02:50 U Cannabinoids Screen NEGATIVE (NEGATIVE) 03/03/19 02:50 - Physical Exam Vitals and I&O: Vital Signs Temp 97.8 F 03/23/19 06:32 Pulse 85 03/23/19 09:19 Resp 20 03/23/19 06:32 BP 140/89 03/23/19 09:19 Pulse Ox 96 03/23/19 06:32 Intake & Output 03/22/19 03/23/19 03/23/19 18:59 06:59 18:59 Intake Total 1200 Balance 1200 Intake: Oral 1200 Other: # Bowel Movements 1 Active Medications: Current Medications Acetaminophen (Tylenol) 650 mg PO Q4HR PRN PRN Reason: Mild Pain / Temp above 100 Stop: 05/05/19 21:06 Last Admin: 03/23/19 03:51 Dose: 650 mg Acetaminophen/Hydrocodone Bitart ([place] 5mg/325mg) 1 tab PO Q6H PRN PRN Reason: Pain (Moderate) Stop: 05/16/19 16:39 Last Admin: 03/22/19 16:32 Dose: 1 tab Amlodipine Besylate (Norvasc) 5 mg PO BID [facility] Stop: 05/19/19 08:59 Last Admin: 03/23/19 09:19 Dose: 5 mg Divalproex Sodium (Depakote Er) 500 mg PO BID [facility]; Protocol Stop: 05/10/19 16:59 Last Admin: 03/23/19 09:19 Dose: 500 mg Lorazepam (Ativan) 0.5 mg PO Q4HR PRN; Protocol PRN Reason: Anxiety Stop: 04/05/19 21:07 Last Admin: 03/22/19 16:32 Dose: 0.5 mg Mirtazapine (Remeron) 7.5 mg PO HS [facility]; Protocol Stop: 05/06/19 20:59 Last Admin: 03/22/19 21:30 Dose: 7.5 mg Paroxetine HCl (Paxil) 20 mg PO DAILY [facility]; Protocol Stop: 05/18/19 08:59 Last Admin: 03/23/19 09:19 Dose: 20 mg Quetiapine Fumarate (Seroquel) 100 mg PO BID [facility] Stop: 05/17/19 16:59 Last Admin: 03/23/19 09:19 Dose: 100 mg Risperidone (Risperdal) 2.5 mg PO BID [facility]; Protocol Stop: 05/21/19 16:59 Last Admin: 03/23/19 09:18 Dose: 2.5 mg Zolpidem Tartrate (Ambien) 5 mg PO HS PRN PRN Reason: Insomnia Stop: 05/05/19 21:07 Last Admin: 03/22/19 21:32 Dose: 5 mg General: alert, NAD, other (awake alert, no distress ) HEENT: NC/AT, PERRLA Neck: Supple, No JVD Lungs: CTAB Cardiovascular: RRR, Normal S1, Normal S2 Abdomen: soft, non-tender, non-distended Extremities: clear Neurological: no change Internal Medicine Assmt/Plan - Assessment Assessment: Schizoaffective disorder Polysubstance abuse Bipolar HTN OA - Plan Plan: Awaiting placement. Continue current treatment plan. Monitor Labs.Continue current medications Continue to monitor VS Monitor Diet/Nutritional support. Psych management per Psychiatry. Pain Management. PT/OT prn Safety precaution, Fall precaution, frequent nursing round. Supportive care. Continue collaborating with consulting specialists, case management and nursing team. Nutritional Asmnt/Malnutr-PDOC - Dietary Evaluation Malnutrition Findings (Please click <Entered> for more info): Nutritional Asmnt/Malnutrition Start: 03/12/19 14: 50 Text: Status: Complete Freq: Protocol: Document 03/12/19 14:50 SILKE (Rec: 03/12/19 14:53 SILKE [email or web address]) Nutritional Asmnt/Malnutrition Patient General Information Nutritional Screening Low Risk Diagnosis Psychosis Pertinent Medical Hx/Surgical Hx Unremarkable (per H&P Report) Subjective Information Pt is a 63-year-old male admitted on 03/06 d/t aggression and agitation. Pt is homeless and admits to using illicit drugs. Pt has eaten well since admission, meeting all nutritional needs. HT: 59 WT: 210 LB (95.45 kg) ABW: 173 LB (78.47 kg) BMI: 31.01 (Obese) GI: WNL, Soft, Round, Non- tender BM: Not noted I/O: 240/Not Noted Skin: WNL, dryness John: 20 Diet Order: Regular Estimated Energy Needs: ( Geriatric, ABW) 0090-3484 kcals (25-30 kcals/ kg) 78-94g Pro (1.0-1.2 g/kg) 6870-0708 ml (25-30 ml/kg) Pt is eating 100% of meals Per Meal/Nutrition Activity Record. Dietary is currently providing an estimated 3170 kcals and 140 gm Pro to meet 100+% kcal and 100+% Pro needs . Current Diet Order/ Nutrition Support Regular Pertinent Medications No pertinent medications Pertinent Labs 03/05: Glucose 120, T Bili 0.2, Alb 3.6 Nutritional Hx/Data Height 5 ft 9 in Height (Calculated Centimeters) 175.3 Current Weight (lbs) 210 lb Weight (Calculated Kilograms) 95.3 Weight (Calculated Grams) 06914.4 [place] Body Weight 160 LB (72.73 kg) % [place] Body Weight 131 Body Mass Index (BMI) 31.0 Weight Status Obese GI Symptoms GI Symptoms None Last BM Not noted Skin Integrity/Comment: Skin: WNL, dryness John: 20 Current %PO Good (75-100%) Estimated Nutritional Goals BEE in Kcals: Adj wt of IBW Calories/Kcals/Kg 25-30 Kcals Calculated 2986-6777 Protein: Adj wt of IBW Protein g/k.0-1.2 Protein Calculated 78-94 Fluid: ml 0286-2076 ml (25-30 ml/kg) Nutritional Problem 1. Problem Problem Poor nutrition quality of life Etiology r/t Pt being homeless Signs/Symptoms: aeb BMI 31.01 and Pt self- report. Malnutrition Related to Morbid Obesity Malnutrition related to morbid obesity No Intervention/Recommendation Comments Continue with Regular diet as ordered. Expected Outcomes/Goals Expected Outcomes/Goals 1. PO intake to continue to meet 75% of nutritional needs. 2. Monitor PO intake, wt, nutrition related labs, and skin integrity. 3. F/U as low risk in 7 days, 03/19
--- NOTE | 2019-03-23 12:23 | Progress Notes ---
DATE: 03/23/2019 Case was discussed with staff of the patient, reviewed records. The patient claimed that his landlord will be willing to take him back. He is sleeping well, eating well. I will discuss with the staff tomorrow and see if we could discharge him to his landlord if he has a place to go. No place so far has been willing to accept him. He is sleeping well, eating well. He is less irritable, less agitated. Urine drug was positive for methamphetamine. The patient always has been using drugs. Continues to have poor insight about his whole situation. No side effects with the medication, no sedation, no nausea, no extrapyramidal symptoms. We will continue to work with the patient in group therapy, milieu therapy, adjust medication as needed. JOB# [id number]
--- NOTE | 2019-03-24 11:14 | Internal Medicine Prog Note ---
Internal Medicine Subjective - Subjective Service Date: 03/24/19 Patient seen and examined:: with staff Patient is:: awake, verbal, interactive, other (Sleeping better in no pain.) Patient Complaints of:: other (Less irritable.) Per staff patient has:: no adverse event, no episodes of fall Internal Medicine Objective - Results Result Diagrams: 03/16/19 05:45 03/05/19 22:25 Recent Labs: Laboratory Last Values WBC 8.0 Th/cmm (4.8-10.8) 03/16/19 05:45 RBC 4.95 Mil/cmm (3.80-5.80) 03/16/19 05:45 Hgb 15.0 gm/dL (12-16) 03/16/19 05:45 Hct 45.8 % (41.0-60) 03/16/19 05:45 MCV 92.5 fl (80-99) 03/16/19 05:45 MCH 30.4 pg (27.0-31.0) 03/16/19 05:45 MCHC Differential 32.8 pg (28.0-36.0) 03/16/19 05:45 RDW 15.0 % (11.5-20.0) 03/16/19 05:45 Plt Count 224 Th/cmm (150-400) 03/16/19 05:45 MPV 8.9 fl 03/16/19 05:45 Neutrophils % 60.8 % (40.0-80.0) 03/16/19 05:45 Lymphocytes % 24.6 % (20.0-50.0) 03/16/19 05:45 Monocytes % 9.4 % (2.0-10.0) 03/16/19 05:45 Eosinophils % 4.8 % (0.0-5.0) 03/16/19 05:45 Basophils % 0.4 % (0.0-2.0) 03/16/19 05:45 Sodium 137 mEq/L (136-145) 03/05/19 22:25 Potassium 4.1 mEq/L (3.5-5.1) 03/05/19 22:25 Chloride 101 mEq/L (98-107) 03/05/19 22:25 Carbon Dioxide 27.5 mEq/L (21.0-31.0) 03/05/19 22:25 Anion Gap 12.6 (7.0-16.0) 03/05/19 22:25 BUN 22 mg/dL (7-25) 03/05/19 22:25 Creatinine 0.7 mg/dL (0.7-1.3) 03/05/19 22:25 Est GFR ( Amer) > 60.0 ml/min (>90) 03/05/19 22:25 Est GFR (Non-Af Amer) > 60.0 ml/min 03/05/19 22:25 BUN/Creatinine Ratio 31.4 03/05/19 22:25 Glucose 120 mg/dL (70-105) H 03/05/19 22:25 POC Glucose 107 MG/DL (70 - 105) H 03/03/19 00:29 Whole Bld Lactic Acid 1.04 mmol/L (0.60-1.99) 03/02/19 22:20 Calcium 9.4 mg/dL (8.6-10.3) 03/05/19 22:25 Total Bilirubin 0.2 mg/dL (0.3-1.0) L 03/05/19 22:25 AST 26 U/L (13-39) 03/05/19 22:25 ALT 15 U/L (7-52) 03/05/19 22:25 Alkaline Phosphatase 46 U/L (34-104) 03/05/19 22:25 Troponin I 0.01 ng/mL (0.01-0.05) 03/05/19 22:25 Total Protein 6.7 gm/dL (6.0-8.3) 03/05/19 22:25 Albumin 3.6 gm/dL (4.2-5.5) L 03/05/19 22:25 Globulin 3.1 gm/dL 03/05/19 22:25 Albumin/Globulin Ratio 1.2 (1.0-1.8) 03/05/19 22:25 Urine Source CLEAN C 03/03/19 02:50 Urine Color YELLOW 03/03/19 02:50 Urine Clarity SLIGHT HAZY (CLEAR) 03/03/19 02:50 Urine pH 6.0 (4.6 - 8.0) 03/03/19 02:50 Ur Specific [place] >= 1.030 (1.005-1.030) 03/03/19 02:50 Urine Protein TRACE mg/dL (NEGATIVE) 03/03/19 02:50 Urine Glucose (UA) NEGATIVE mg/dL (NEGATIVE) 03/03/19 02:50 Urine Ketones NEGATIVE mg/dL (NEGATIVE) 03/03/19 02:50 Urine Blood TRACE (NEGATIVE) 03/03/19 02:50 Urine Nitrate NEGATIVE (NEGATIVE) 03/03/19 02:50 Urine Bilirubin NEGATIVE (NEGATIVE) 03/03/19 02:50 Urine Urobilinogen 0.2 E.U./dL (0.2 - 1.0) 03/03/19 02:50 Ur Leukocyte Esterase NEGATIVE (NEGATIVE) 03/03/19 02:50 Urine RBC 5-10 /hpf (0-5) H 03/03/19 02:50 Urine WBC 6-10 /hpf (0-5) 03/03/19 02:50 Ur Epithelial Cells RARE /lpf (FEW) 03/03/19 02:50 Urine Bacteria FEW /hpf (NONE SEEN) 03/03/19 02:50 Urine Opiates Screen NEGATIVE (NEGATIVE) 03/03/19 02:50 Urine Methadone Screen NEGATIVE (NEGATIVE) 03/03/19 02:50 Ur Barbiturates Screen NEGATIVE (NEGATIVE) 03/03/19 02:50 Valproic Acid 51.8 ug/mL (50.0-100.0) 03/16/19 05:50 Ur Tricyclics Screen NEGATIVE (NEGATIVE) 03/03/19 02:50 Ur Phencyclidine Scrn NEGATIVE (NEGATIVE) 03/03/19 02:50 Amphetamines Screen POSITIVE (NEGATIVE) H 03/03/19 02:50 U Methamphetamines Scrn NEGATIVE (NEGATIVE) 03/03/19 02:50 U Benzodiazepines Scrn NEGATIVE (NEGATIVE) 03/03/19 02:50 U Cocaine Metab Screen NEGATIVE (NEGATIVE) 03/03/19 02:50 U Cannabinoids Screen NEGATIVE (NEGATIVE) 03/03/19 02:50 - Physical Exam Vitals and I&O: Vital Signs Temp 98.1 F 03/24/19 06:45 Pulse 94 03/24/19 09:05 Resp 19 03/24/19 06:45 BP 152/79 03/24/19 09:05 Pulse Ox 93 03/24/19 06:45 Intake & Output 03/23/19 03/24/19 03/24/19 18:59 06:59 18:59 Intake Total 1000 240 Balance 1000 240 Weight (lbs) 95.254 kg Intake: Oral 1000 240 Other: # Voids 4 3 # Bowel Movements 1 0 Weight Source Bedscale Active Medications: Current Medications Acetaminophen (Tylenol) 650 mg PO Q4HR PRN PRN Reason: Mild Pain / Temp above 100 Stop: 05/05/19 21:06 Last Admin: 03/23/19 03:51 Dose: 650 mg Acetaminophen/Hydrocodone Bitart ([place] 5mg/325mg) 1 tab PO Q6H PRN PRN Reason: Pain (Moderate) Stop: 05/16/19 16:39 Last Admin: 03/22/19 16:32 Dose: 1 tab Amlodipine Besylate (Norvasc) 5 mg PO BID JENISE Stop: 05/19/19 08:59 Last Admin: 03/24/19 09:05 Dose: 5 mg Divalproex Sodium (Depakote Er) 500 mg PO BID [facility]; Protocol Stop: 05/10/19 16:59 Last Admin: 03/24/19 09:05 Dose: 500 mg Lorazepam (Ativan) 0.5 mg PO Q4HR PRN; Protocol PRN Reason: Anxiety Stop: 04/05/19 21:07 Last Admin: 03/22/19 16:32 Dose: 0.5 mg Mirtazapine (Remeron) 7.5 mg PO HS [facility]; Protocol Stop: 05/06/19 20:59 Last Admin: 03/23/19 21:44 Dose: 7.5 mg Paroxetine HCl (Paxil) 20 mg PO DAILY [facility]; Protocol Stop: 05/18/19 08:59 Last Admin: 03/24/19 09:05 Dose: 20 mg Quetiapine Fumarate (Seroquel) 100 mg PO BID JENISE Stop: 05/17/19 16:59 Last Admin: 03/24/19 09:05 Dose: 100 mg Risperidone (Risperdal) 2.5 mg PO BID [facility]; Protocol Stop: 05/21/19 16:59 Last Admin: 03/24/19 09:05 Dose: 2.5 mg Zolpidem Tartrate (Ambien) 5 mg PO HS PRN PRN Reason: Insomnia Stop: 05/05/19 21:07 Last Admin: 03/23/19 21:44 Dose: 5 mg Physical Exam: Patient is less irritable, sleeping better, per Landlord he is willing to take patient back. Patient has used Meth, per patient he has always used drugs. Patient has poor insight about present situation. General: alert, NAD, other (awake alert, no distress ) HEENT: NC/AT, PERRLA Neck: Supple, No JVD Lungs: CTAB Cardiovascular: RRR, Normal S1, Normal S2 Abdomen: soft, non-tender, non-distended Extremities: clear Neurological: no change Internal Medicine Assmt/Plan - Assessment Assessment: Psychosis, improving. Schizoaffective disorder. Polysubstance abuse. Bipolar. Htn. Osteoarthritis. History of Meth use. - Plan Plan: Continuation of care. Monitor Labs. Continue present meds as directed. Monitor vitals Monitor diet Monitor labs Fall precaution, frequent nursing rounds, and as needed restraints to prevent fall. Safety precaution. Supportive care. Continue present care management. Nutritional Asmnt/Malnutr-PDOC - Dietary Evaluation Malnutrition Findings (Please click <Entered> for more info): Nutritional Asmnt/Malnutrition Start: 03/12/19 14: 50 Text: Status: Complete Freq: Protocol: Document 03/12/19 14:50 SILKE (Rec: 03/12/19 14:53 SILKE [email or web address]) Nutritional Asmnt/Malnutrition Patient General Information Nutritional Screening Low Risk Diagnosis Psychosis Pertinent Medical Hx/Surgical Hx Unremarkable (per H&P Report) Subjective Information Pt is a 63-year-old male admitted on 03/06 d/t aggression and agitation. Pt is homeless and admits to using illicit drugs. Pt has eaten well since admission, meeting all nutritional needs. HT: 59 WT: 210 LB (95.45 kg) ABW: 173 LB (78.47 kg) BMI: 31.01 (Obese) GI: WNL, Soft, Round, Non- tender BM: Not noted I/O: 240/Not Noted Skin: WNL, dryness John: 20 Diet Order: Regular Estimated Energy Needs: ( Geriatric, ABW) 2569-1841 kcals (25-30 kcals/ kg) 78-94g Pro (1.0-1.2 g/kg) 9780-6134 ml (25-30 ml/kg) Pt is eating 100% of meals Per Meal/Nutrition Activity Record. Dietary is currently providing an estimated 3170 kcals and 140 gm Pro to meet 100+% kcal and 100+% Pro needs . Current Diet Order/ Nutrition Support Regular Pertinent Medications No pertinent medications Pertinent Labs 03/05: Glucose 120, T Bili 0.2, Alb 3.6 Nutritional Hx/Data Height 1.75 m Height (Calculated Centimeters) 175.3 Current Weight (lbs) 95.254 kg Weight (Calculated Kilograms) 95.3 Weight (Calculated Grams) 98959.4 [place] Body Weight 160 LB (72.73 kg) % [place] Body Weight 131 Body Mass Index (BMI) 31.0 Weight Status Obese GI Symptoms GI Symptoms None Last BM Not noted Skin Integrity/Comment: Skin: WNL, dryness John: 20 Current %PO Good (75-100%) Estimated Nutritional Goals BEE in Kcals: Adj wt of IBW Calories/Kcals/Kg 25-30 Kcals Calculated 8697-5619 Protein: Adj wt of IBW Protein g/k.0-1.2 Protein Calculated 78-94 Fluid: ml 2709-7193 ml (25-30 ml/kg) Nutritional Problem 1. Problem Problem Poor nutrition quality of life Etiology r/t Pt being homeless Signs/Symptoms: aeb BMI 31.01 and Pt self- report. Malnutrition Related to Morbid Obesity Malnutrition related to morbid obesity No Intervention/Recommendation Comments Continue with Regular diet as ordered. Expected Outcomes/Goals Expected Outcomes/Goals 1. PO intake to continue to meet 75% of nutritional needs. 2. Monitor PO intake, wt, nutrition related labs, and skin integrity. 3. F/U as low risk in 7 days, 03/19
--- NOTE | 2019-03-24 23:30 | Discharge Summary ---
DATE OF DISCHARGE: 03/24/2019 IDENTIFYING INFORMATION: The patient is a 63-year-old male. CHIEF COMPLAINT: The patient was admitted on a hold for danger to others. 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 He was agitated, yelling, screaming, and mumbling to himself. When I tried to talk to him, he was very agitated. He was talking while food was in his mouth. He was unable to tell me the date. He knew he was at [facility]. He reports that he does not have love, no sex, nothing for a long time and that he needs either Ativan, Xanax, or Triavil. Unable to tell me why he was at this facility. The patient has multiple prior attempts to harm himself with multiple overdoses in the past. I first saw him in the Emergency Room. He was on a 5150 hold. They could not find him a place, so I put him on 5250 hold because of agitation and psychosis, and was transferred to [facility]. The patient admits to feeling depressed, using marijuana, LSD, cocaine. He was paranoid about people on the street: The patient denies schizoaffective disorder, polysubstance dependence. COURSE IN THE HOSPITAL: The patient was started first on Seroquel, increased the dose to 200 mg twice a day and added Depakote 500 mg twice a day, and also on Remeron 7.5 mg at bedtime. The patient reports he used to be on Paxil and Risperdal, so I added Paxil 20 mg daily and Risperdal. We increased the dose to 2.5 mg twice a day because of agitation and decreased the Seroquel to 100 mg twice a day. The patient progressively got better, hard time placing him. Finally, [facility] agreed to take him. So, as the patient improved, was no longer acting psychotic. He was sleeping well, eating well. Thought he could be discharged to a lesser level of care. The patient was seen by Dr. Bell who took care of his medical condition. He was kept on amlodipine, clonidine, hydrocodone. FINAL DIAGNOSIS: Schizoaffective disorder. MEDICAL DIAGNOSIS: As per medical doctor. The patient will be going to [facility]. Followup with the psychiatrist, primary care physician and therapist. EXPECTED OUTCOME: Stable if the patient complies with the above. [facility]# [id number]
--- NOTE | 2019-03-25 17:06 | Internal Medicine Prog Note ---
Internal Medicine Subjective - Subjective Service Date: 03/25/19 Patient is:: awake, verbal, interactive, other (Sleeping better in no pain.) Patient Complaints of:: other (Less irritable.) Per staff patient has:: no adverse event, no episodes of fall Internal Medicine Objective - Results Result Diagrams: 03/16/19 05:45 03/05/19 22:25 Recent Labs: Laboratory Last Values WBC 8.0 Th/cmm (4.8-10.8) 03/16/19 05:45 RBC 4.95 Mil/cmm (3.80-5.80) 03/16/19 05:45 Hgb 15.0 gm/dL (12-16) 03/16/19 05:45 Hct 45.8 % (41.0-60) 03/16/19 05:45 MCV 92.5 fl (80-99) 03/16/19 05:45 MCH 30.4 pg (27.0-31.0) 03/16/19 05:45 MCHC Differential 32.8 pg (28.0-36.0) 03/16/19 05:45 RDW 15.0 % (11.5-20.0) 03/16/19 05:45 Plt Count 224 Th/cmm (150-400) 03/16/19 05:45 MPV 8.9 fl 03/16/19 05:45 Neutrophils % 60.8 % (40.0-80.0) 03/16/19 05:45 Lymphocytes % 24.6 % (20.0-50.0) 03/16/19 05:45 Monocytes % 9.4 % (2.0-10.0) 03/16/19 05:45 Eosinophils % 4.8 % (0.0-5.0) 03/16/19 05:45 Basophils % 0.4 % (0.0-2.0) 03/16/19 05:45 Sodium 137 mEq/L (136-145) 03/05/19 22:25 Potassium 4.1 mEq/L (3.5-5.1) 03/05/19 22:25 Chloride 101 mEq/L (98-107) 03/05/19 22:25 Carbon Dioxide 27.5 mEq/L (21.0-31.0) 03/05/19 22:25 Anion Gap 12.6 (7.0-16.0) 03/05/19 22:25 BUN 22 mg/dL (7-25) 03/05/19 22:25 Creatinine 0.7 mg/dL (0.7-1.3) 03/05/19 22:25 Est GFR ( Amer) > 60.0 ml/min (>90) 03/05/19 22:25 Est GFR (Non-Af Amer) > 60.0 ml/min 03/05/19 22:25 BUN/Creatinine Ratio 31.4 03/05/19 22:25 Glucose 120 mg/dL (70-105) H 03/05/19 22:25 POC Glucose 107 MG/DL (70 - 105) H 03/03/19 00:29 Whole Bld Lactic Acid 1.04 mmol/L (0.60-1.99) 03/02/19 22:20 Calcium 9.4 mg/dL (8.6-10.3) 03/05/19 22:25 Total Bilirubin 0.2 mg/dL (0.3-1.0) L 03/05/19 22:25 AST 26 U/L (13-39) 03/05/19 22:25 ALT 15 U/L (7-52) 03/05/19 22:25 Alkaline Phosphatase 46 U/L (34-104) 03/05/19 22:25 Troponin I 0.01 ng/mL (0.01-0.05) 03/05/19 22:25 Total Protein 6.7 gm/dL (6.0-8.3) 03/05/19 22:25 Albumin 3.6 gm/dL (4.2-5.5) L 03/05/19 22:25 Globulin 3.1 gm/dL 03/05/19 22:25 Albumin/Globulin Ratio 1.2 (1.0-1.8) 03/05/19 22:25 Urine Source CLEAN C 03/03/19 02:50 Urine Color YELLOW 03/03/19 02:50 Urine Clarity SLIGHT HAZY (CLEAR) 03/03/19 02:50 Urine pH 6.0 (4.6 - 8.0) 03/03/19 02:50 Ur Specific [place] >= 1.030 (1.005-1.030) 03/03/19 02:50 Urine Protein TRACE mg/dL (NEGATIVE) 03/03/19 02:50 Urine Glucose (UA) NEGATIVE mg/dL (NEGATIVE) 03/03/19 02:50 Urine Ketones NEGATIVE mg/dL (NEGATIVE) 03/03/19 02:50 Urine Blood TRACE (NEGATIVE) 03/03/19 02:50 Urine Nitrate NEGATIVE (NEGATIVE) 03/03/19 02:50 Urine Bilirubin NEGATIVE (NEGATIVE) 03/03/19 02:50 Urine Urobilinogen 0.2 E.U./dL (0.2 - 1.0) 03/03/19 02:50 Ur Leukocyte Esterase NEGATIVE (NEGATIVE) 03/03/19 02:50 Urine RBC 5-10 /hpf (0-5) H 03/03/19 02:50 Urine WBC 6-10 /hpf (0-5) 03/03/19 02:50 Ur Epithelial Cells RARE /lpf (FEW) 03/03/19 02:50 Urine Bacteria FEW /hpf (NONE SEEN) 03/03/19 02:50 Urine Opiates Screen NEGATIVE (NEGATIVE) 03/03/19 02:50 Urine Methadone Screen NEGATIVE (NEGATIVE) 03/03/19 02:50 Ur Barbiturates Screen NEGATIVE (NEGATIVE) 03/03/19 02:50 Valproic Acid 51.8 ug/mL (50.0-100.0) 03/16/19 05:50 Ur Tricyclics Screen NEGATIVE (NEGATIVE) 03/03/19 02:50 Ur Phencyclidine Scrn NEGATIVE (NEGATIVE) 03/03/19 02:50 Amphetamines Screen POSITIVE (NEGATIVE) H 03/03/19 02:50 U Methamphetamines Scrn NEGATIVE (NEGATIVE) 03/03/19 02:50 U Benzodiazepines Scrn NEGATIVE (NEGATIVE) 03/03/19 02:50 U Cocaine Metab Screen NEGATIVE (NEGATIVE) 03/03/19 02:50 U Cannabinoids Screen NEGATIVE (NEGATIVE) 03/03/19 02:50 - Physical Exam Vitals and I&O: Vital Signs Temp 97.8 F 03/25/19 14:00 Pulse 96 03/25/19 14:00 Resp 18 03/25/19 14:00 BP 147/83 03/25/19 14:00 Pulse Ox 95 03/25/19 14:00 Intake & Output 03/24/19 03/25/19 03/25/19 18:59 06:59 18:59 Intake Total 480 Balance 480 Intake: Oral 480 Other: # Voids 2 2 # Bowel Movements 1 1 Active Medications: Current Medications Acetaminophen (Tylenol) 650 mg PO Q4HR PRN PRN Reason: Mild Pain / Temp above 100 Stop: 05/05/19 21:06 Last Admin: 03/23/19 03:51 Dose: 650 mg Amlodipine Besylate (Norvasc) 5 mg PO BID [facility] Stop: 05/19/19 08:59 Last Admin: 03/25/19 08:33 Dose: 5 mg Divalproex Sodium (Depakote Er) 500 mg PO BID [facility]; Protocol Stop: 05/10/19 16:59 Last Admin: 03/25/19 08:33 Dose: 500 mg Lorazepam (Ativan) 0.5 mg PO Q4HR PRN; Protocol PRN Reason: Anxiety Stop: 04/05/19 21:07 Last Admin: 03/25/19 12:56 Dose: 0.5 mg Mirtazapine (Remeron) 7.5 mg PO HS [facility]; Protocol Stop: 05/06/19 20:59 Last Admin: 03/24/19 21:04 Dose: 7.5 mg Paroxetine HCl (Paxil) 20 mg PO DAILY [facility]; Protocol Stop: 05/18/19 08:59 Last Admin: 03/25/19 08:33 Dose: 20 mg Quetiapine Fumarate (Seroquel) 100 mg PO BID [facility] Stop: 05/17/19 16:59 Last Admin: 03/25/19 08:33 Dose: 100 mg Risperidone (Risperdal) 2.5 mg PO BID [facility]; Protocol Stop: 05/21/19 16:59 Last Admin: 03/25/19 08:31 Dose: 2.5 mg Zolpidem Tartrate (Ambien) 5 mg PO HS PRN PRN Reason: Insomnia Stop: 05/05/19 21:07 Last Admin: 03/24/19 21:05 Dose: 5 mg General: alert, NAD, other (awake alert, no distress ) HEENT: NC/AT, PERRLA Neck: Supple, No JVD Lungs: CTAB Cardiovascular: RRR, Normal S1, Normal S2 Abdomen: soft, non-tender, non-distended Extremities: clear Neurological: no change Internal Medicine Assmt/Plan - Assessment Assessment: Schizoaffective disorder Polysubstance abuse Bipolar HTN OA - Plan Plan: Continue current treatment plan. Monitor Labs.Continue current medications Continue to monitor VS Monitor Diet/Nutritional support. Psych management per Psychiatry. Pain Management. PT/OT prn Safety precaution, Fall precaution, frequent nursing round. Supportive care. Continue collaborating with consulting specialists, case management and nursing team. Nutritional Asmnt/Malnutr-PDOC - Dietary Evaluation Malnutrition Findings (Please click <Entered> for more info): Nutritional Asmnt/Malnutrition Start: 03/12/19 14: 50 Text: Status: Complete Freq: Protocol: Document 03/12/19 14:50 SILKE (Rec: 03/12/19 14:53 SILKE [id number]) Nutritional Asmnt/Malnutrition Patient General Information Nutritional Screening Low Risk Diagnosis Psychosis Pertinent Medical Hx/Surgical Hx Unremarkable (per H&P Report) Subjective Information Pt is a 63-year-old male admitted on 03/06 d/t aggression and agitation. Pt is homeless and admits to using illicit drugs. Pt has eaten well since admission, meeting all nutritional needs. HT: 59 WT: 210 LB (95.45 kg) ABW: 173 LB (78.47 kg) BMI: 31.01 (Obese) GI: WNL, Soft, Round, Non- tender BM: Not noted I/O: 240/Not Noted Skin: WNL, dryness John: 20 Diet Order: Regular Estimated Energy Needs: ( Geriatric, ABW) 2446-3998 kcals (25-30 kcals/ kg) 78-94g Pro (1.0-1.2 g/kg) 4846-5000 ml (25-30 ml/kg) Pt is eating 100% of meals Per Meal/Nutrition Activity Record. Dietary is currently providing an estimated 3170 kcals and 140 gm Pro to meet 100+% kcal and 100+% Pro needs . Current Diet Order/ Nutrition Support Regular Pertinent Medications No pertinent medications Pertinent Labs 03/05: Glucose 120, T Bili 0.2, Alb 3.6 Nutritional Hx/Data Height 5 ft 9 in Height (Calculated Centimeters) 175.3 Current Weight (lbs) 210 lb Weight (Calculated Kilograms) 95.3 Weight (Calculated Grams) 77199.4 [place] Body Weight 160 LB (72.73 kg) % [place] Body Weight 131 Body Mass Index (BMI) 31.0 Weight Status Obese GI Symptoms GI Symptoms None Last BM Not noted Skin Integrity/Comment: Skin: WNL, dryness John: 20 Current %PO Good (75-100%) Estimated Nutritional Goals BEE in Kcals: Adj wt of IBW Calories/Kcals/Kg 25-30 Kcals Calculated 4371-9495 Protein: Adj wt of IBW Protein g/k.0-1.2 Protein Calculated 78-94 Fluid: ml 4788-6719 ml (25-30 ml/kg) Nutritional Problem 1. Problem Problem Poor nutrition quality of life Etiology r/t Pt being homeless Signs/Symptoms: aeb BMI 31.01 and Pt self- report. Malnutrition Related to Morbid Obesity Malnutrition related to morbid obesity No Intervention/Recommendation Comments Continue with Regular diet as ordered. Expected Outcomes/Goals Expected Outcomes/Goals 1. PO intake to continue to meet 75% of nutritional needs. 2. Monitor PO intake, wt, nutrition related labs, and skin integrity. 3. F/U as low risk in 7 days, 03/19
--- NOTE | 2019-03-26 10:56 | Internal Medicine Prog Note ---
Internal Medicine Subjective - Subjective Service Date: 03/26/19 Patient seen and examined:: with staff Patient is:: awake, verbal, interactive, other (Sleeping better in no pain.) Patient Complaints of:: other (Less irritable.) Per staff patient has:: no adverse event, no episodes of fall Internal Medicine Objective - Results Result Diagrams: 03/16/19 05:45 03/05/19 22:25 Recent Labs: Laboratory Last Values WBC 8.0 Th/cmm (4.8-10.8) 03/16/19 05:45 RBC 4.95 Mil/cmm (3.80-5.80) 03/16/19 05:45 Hgb 15.0 gm/dL (12-16) 03/16/19 05:45 Hct 45.8 % (41.0-60) 03/16/19 05:45 MCV 92.5 fl (80-99) 03/16/19 05:45 MCH 30.4 pg (27.0-31.0) 03/16/19 05:45 MCHC Differential 32.8 pg (28.0-36.0) 03/16/19 05:45 RDW 15.0 % (11.5-20.0) 03/16/19 05:45 Plt Count 224 Th/cmm (150-400) 03/16/19 05:45 MPV 8.9 fl 03/16/19 05:45 Neutrophils % 60.8 % (40.0-80.0) 03/16/19 05:45 Lymphocytes % 24.6 % (20.0-50.0) 03/16/19 05:45 Monocytes % 9.4 % (2.0-10.0) 03/16/19 05:45 Eosinophils % 4.8 % (0.0-5.0) 03/16/19 05:45 Basophils % 0.4 % (0.0-2.0) 03/16/19 05:45 Sodium 137 mEq/L (136-145) 03/05/19 22:25 Potassium 4.1 mEq/L (3.5-5.1) 03/05/19 22:25 Chloride 101 mEq/L (98-107) 03/05/19 22:25 Carbon Dioxide 27.5 mEq/L (21.0-31.0) 03/05/19 22:25 Anion Gap 12.6 (7.0-16.0) 03/05/19 22:25 BUN 22 mg/dL (7-25) 03/05/19 22:25 Creatinine 0.7 mg/dL (0.7-1.3) 03/05/19 22:25 Est GFR ( Amer) > 60.0 ml/min (>90) 03/05/19 22:25 Est GFR (Non-Af Amer) > 60.0 ml/min 03/05/19 22:25 BUN/Creatinine Ratio 31.4 03/05/19 22:25 Glucose 120 mg/dL (70-105) H 03/05/19 22:25 POC Glucose 107 MG/DL (70 - 105) H 03/03/19 00:29 Whole Bld Lactic Acid 1.04 mmol/L (0.60-1.99) 03/02/19 22:20 Calcium 9.4 mg/dL (8.6-10.3) 03/05/19 22:25 Total Bilirubin 0.2 mg/dL (0.3-1.0) L 03/05/19 22:25 AST 26 U/L (13-39) 03/05/19 22:25 ALT 15 U/L (7-52) 03/05/19 22:25 Alkaline Phosphatase 46 U/L (34-104) 03/05/19 22:25 Troponin I 0.01 ng/mL (0.01-0.05) 03/05/19 22:25 Total Protein 6.7 gm/dL (6.0-8.3) 03/05/19 22:25 Albumin 3.6 gm/dL (4.2-5.5) L 03/05/19 22:25 Globulin 3.1 gm/dL 03/05/19 22:25 Albumin/Globulin Ratio 1.2 (1.0-1.8) 03/05/19 22:25 Urine Source CLEAN C 03/03/19 02:50 Urine Color YELLOW 03/03/19 02:50 Urine Clarity SLIGHT HAZY (CLEAR) 03/03/19 02:50 Urine pH 6.0 (4.6 - 8.0) 03/03/19 02:50 Ur Specific [place] >= 1.030 (1.005-1.030) 03/03/19 02:50 Urine Protein TRACE mg/dL (NEGATIVE) 03/03/19 02:50 Urine Glucose (UA) NEGATIVE mg/dL (NEGATIVE) 03/03/19 02:50 Urine Ketones NEGATIVE mg/dL (NEGATIVE) 03/03/19 02:50 Urine Blood TRACE (NEGATIVE) 03/03/19 02:50 Urine Nitrate NEGATIVE (NEGATIVE) 03/03/19 02:50 Urine Bilirubin NEGATIVE (NEGATIVE) 03/03/19 02:50 Urine Urobilinogen 0.2 E.U./dL (0.2 - 1.0) 03/03/19 02:50 Ur Leukocyte Esterase NEGATIVE (NEGATIVE) 03/03/19 02:50 Urine RBC 5-10 /hpf (0-5) H 03/03/19 02:50 Urine WBC 6-10 /hpf (0-5) 03/03/19 02:50 Ur Epithelial Cells RARE /lpf (FEW) 03/03/19 02:50 Urine Bacteria FEW /hpf (NONE SEEN) 03/03/19 02:50 Urine Opiates Screen NEGATIVE (NEGATIVE) 03/03/19 02:50 Urine Methadone Screen NEGATIVE (NEGATIVE) 03/03/19 02:50 Ur Barbiturates Screen NEGATIVE (NEGATIVE) 03/03/19 02:50 Valproic Acid 51.8 ug/mL (50.0-100.0) 03/16/19 05:50 Ur Tricyclics Screen NEGATIVE (NEGATIVE) 03/03/19 02:50 Ur Phencyclidine Scrn NEGATIVE (NEGATIVE) 03/03/19 02:50 Amphetamines Screen POSITIVE (NEGATIVE) H 03/03/19 02:50 U Methamphetamines Scrn NEGATIVE (NEGATIVE) 03/03/19 02:50 U Benzodiazepines Scrn NEGATIVE (NEGATIVE) 03/03/19 02:50 U Cocaine Metab Screen NEGATIVE (NEGATIVE) 03/03/19 02:50 U Cannabinoids Screen NEGATIVE (NEGATIVE) 03/03/19 02:50 - Physical Exam Vitals and I&O: Vital Signs Temp 98.3 F 03/26/19 06:23 Pulse 87 03/26/19 08:16 Resp 17 03/26/19 08:00 BP 141/93 03/26/19 08:16 Pulse Ox 97 03/26/19 06:23 Intake & Output 03/25/19 03/26/19 03/26/19 18:59 06:59 18:59 Intake Total 1350 120 Balance 1350 120 Intake: Oral 1350 120 Other: # Voids 3 # Bowel Movements 1 Active Medications: Current Medications Acetaminophen (Tylenol) 650 mg PO Q4HR PRN PRN Reason: Mild Pain / Temp above 100 Stop: 05/05/19 21:06 Last Admin: 03/23/19 03:51 Dose: 650 mg Amlodipine Besylate (Norvasc) 5 mg PO BID [facility] Stop: 05/19/19 08:59 Last Admin: 03/26/19 08:16 Dose: 5 mg Divalproex Sodium (Depakote Er) 500 mg PO BID [facility]; Protocol Stop: 05/10/19 16:59 Last Admin: 03/26/19 08:15 Dose: 500 mg Lorazepam (Ativan) 0.5 mg PO Q4HR PRN; Protocol PRN Reason: Anxiety Stop: 04/05/19 21:07 Last Admin: 03/25/19 12:56 Dose: 0.5 mg Mirtazapine (Remeron) 7.5 mg PO HS [facility]; Protocol Stop: 05/06/19 20:59 Last Admin: 03/25/19 20:57 Dose: 7.5 mg Paroxetine HCl (Paxil) 20 mg PO DAILY [facility]; Protocol Stop: 05/18/19 08:59 Last Admin: 03/26/19 08:15 Dose: 20 mg Quetiapine Fumarate (Seroquel) 100 mg PO BID [facility] Stop: 05/17/19 16:59 Last Admin: 03/26/19 08:15 Dose: 100 mg Risperidone (Risperdal) 2.5 mg PO BID [facility]; Protocol Stop: 05/21/19 16:59 Last Admin: 03/26/19 08:15 Dose: 2.5 mg Zolpidem Tartrate (Ambien) 5 mg PO HS PRN PRN Reason: Insomnia Stop: 05/05/19 21:07 Last Admin: 03/25/19 20:58 Dose: 5 mg Physical Exam: Patient is less irritable, sleeping better, per Landlord he is willing to take patient back. Patient has used Meth, per patient he has always used drugs. Patient has poor insight about present situation. General: alert, NAD, other (awake alert, no distress ) HEENT: NC/AT, PERRLA Neck: Supple, No JVD Lungs: CTAB Cardiovascular: RRR, Normal S1, Normal S2 Abdomen: soft, non-tender, non-distended Extremities: clear Neurological: no change Internal Medicine Assmt/Plan - Assessment Assessment: Psychosis, improving. Schizoaffective disorder. Polysubstance abuse. Bipolar. Htn. Osteoarthritis. History of Meth use. - Plan Plan: Continuation of care. Monitor Labs. Continue present meds as directed. Monitor vitals Monitor diet Monitor labs Fall precaution, frequent nursing rounds, and as needed restraints to prevent fall. Safety precaution. Supportive care. Continue present care management. Nutritional Asmnt/Malnutr-PDOC - Dietary Evaluation Malnutrition Findings (Please click <Entered> for more info): Nutritional Asmnt/Malnutrition Start: 03/12/19 14: 50 Text: Status: Complete Freq: Protocol: Document 03/12/19 14:50 SILKE (Rec: 03/12/19 14:53 SILKE [id number]) Nutritional Asmnt/Malnutrition Patient General Information Nutritional Screening Low Risk Diagnosis Psychosis Pertinent Medical Hx/Surgical Hx Unremarkable (per H&P Report) Subjective Information Pt is a 63-year-old male admitted on 03/06 d/t aggression and agitation. Pt is homeless and admits to using illicit drugs. Pt has eaten well since admission, meeting all nutritional needs. HT: 59 WT: 210 LB (95.45 kg) ABW: 173 LB (78.47 kg) BMI: 31.01 (Obese) GI: WNL, Soft, Round, Non- tender BM: Not noted I/O: 240/Not Noted Skin: WNL, dryness John: 20 Diet Order: Regular Estimated Energy Needs: ( Geriatric, ABW) 7118-5132 kcals (25-30 kcals/ kg) 78-94g Pro (1.0-1.2 g/kg) 2473-6251 ml (25-30 ml/kg) Pt is eating 100% of meals Per Meal/Nutrition Activity Record. Dietary is currently providing an estimated 3170 kcals and 140 gm Pro to meet 100+% kcal and 100+% Pro needs . Current Diet Order/ Nutrition Support Regular Pertinent Medications No pertinent medications Pertinent Labs 03/05: Glucose 120, T Bili 0.2, Alb 3.6 Nutritional Hx/Data Height 1.75 m Height (Calculated Centimeters) 175.3 Current Weight (lbs) 95.254 kg Weight (Calculated Kilograms) 95.3 Weight (Calculated Grams) 54163.4 [place] Body Weight 160 LB (72.73 kg) % [place] Body Weight 131 Body Mass Index (BMI) 31.0 Weight Status Obese GI Symptoms GI Symptoms None Last BM Not noted Skin Integrity/Comment: Skin: WNL, dryness John: 20 Current %PO Good (75-100%) Estimated Nutritional Goals BEE in Kcals: Adj wt of IBW Calories/Kcals/Kg 25-30 Kcals Calculated 9929-6799 Protein: Adj wt of IBW Protein g/k.0-1.2 Protein Calculated 78-94 Fluid: ml 5627-1778 ml (25-30 ml/kg) Nutritional Problem 1. Problem Problem Poor nutrition quality of life Etiology r/t Pt being homeless Signs/Symptoms: aeb BMI 31.01 and Pt self- report. Malnutrition Related to Morbid Obesity Malnutrition related to morbid obesity No Intervention/Recommendation Comments Continue with Regular diet as ordered. Expected Outcomes/Goals Expected Outcomes/Goals 1. PO intake to continue to meet 75% of nutritional needs. 2. Monitor PO intake, wt, nutrition related labs, and skin integrity. 3. F/U as low risk in 7 days, 03/19
== END 2019-03-26 16:15 | DRG 885 ==
LOC: ER 22:10 → GERO 03-06 17:25
PROVIDERS: ADMIT Psychiatry & Neurology Psychiatry; ATTEND Psychiatry & Neurology Psychiatry
DX: F25.1 Schizoaffective disorder, depressive type (principal); F19.20 Other psychoactive substance dependence, uncomplicated; I10 Essential (primary) hypertension; M19.90 Unspecified osteoarthritis, unspecified site; F29 Unspecified psychosis not due to a substance or known physiological condition; Z59.0 Homelessness
CPT/HCPCS: 36415-UA; 76870-TC; 80048-TC; 80053-TC; 80164-TC; 80307; 81001-TC; 82948-90; 83036-90; 83605; 84484-TC; 85025-TC; 90899; G0410; J0696; J1200; J1630; J2060; Z7610